=== PATIENT | male | born 1940 | race African-American/Black ===

== ENCOUNTER 2016-09-11 13:31 | Emergency (ER) | payer OTHER, BC ==
--- NOTE | 2016-09-11 14:26 | ER Document Report ---
ED Medical Screen (RME) - General Mode of Arrival: Wheelchair Information source: Patient TRAVEL OUTSIDE OF THE U.S. IN LAST 30 DAYS: No - HPI Onset: This afternoon Associated Symptoms: Other - see notes above <WOO RAMIREZ - Last Filed: 09/11/16 14:50> <SERVANDOVINOD - Last Filed: 09/11/16 20:14> - General Chief Complaint: Fall Stated Complaint: FALL Time Seen by Provider: 09/11/16 14:12 Notes: 76-year-old male presents to the ED complaining of difficulty walking and moving his left leg secondary to suffering a fall earlier this afternoon. Patient reports that he stepped out of his truck, opened the passenger door to take his walker out, placed the walker on the ground, but then proceeded to fall from a standing height and landing on his buttocks. Patient currently denies any pain, urinary incontinence, or fecal incontinence. Patient reports limited mobility with his right leg which is not new. (WOO RAMIREZ) Past Medical History - General Information source: Patient Renal/ Medical History: Denies: Hx Peritoneal Dialysis <WOO RAMIREZ - Last Filed: 09/11/16 14:50> Review of Systems - Review of Systems Constitutional: No symptoms reported EENT: No symptoms reported Cardiovascular: No symptoms reported Respiratory: No symptoms reported Gastrointestinal: No symptoms reported. denies: Fecal incontinence Genitourinary: No symptoms reported. denies: Incontinence Male Genitourinary: No symptoms reported Musculoskeletal: No symptoms reported, Other - denies leg pain. denies: Back pain, Neck pain Skin: No symptoms reported Hematologic/Lymphatic: No symptoms reported Neurological/Psychological: No symptoms reported -: Yes All other systems reviewed and negative <WOO RAMIREZ - Last Filed: 09/11/16 14:50> Physical Exam - General General appearance: Alert In distress: None - HEENT Head: Normocephalic, Atraumatic Eyes: Normal Extraocular movements intact: Yes Pupils: PERRL - Respiratory Respiratory status: No respiratory distress Breath sounds: Normal - Cardiovascular Rhythm: Regular Heart sounds: Normal auscultation Murmur: No Friction rub: No Gallop: None auscultated - Extremities General upper extremity: Normal inspection, Normal ROM General lower extremity: Other - Patient having difficulty elevating the left thigh, but has no difficulty extending and flexing the left knee.. No: Normal inspection, Normal ROM <WOO RAMIREZ - Last Filed: 09/11/16 14:50> Course - Laboratory Result Diagrams: 09/11/16 14:30 09/11/16 14:30 <WOO RAMIREZ - Last Filed: 09/11/16 14:50> - Laboratory Result Diagrams: 09/11/16 14:30 09/11/16 14:30 <VINOD LOUNG - Last Filed: 09/11/16 20:14> - Vital Signs Vital signs: Temp Pulse Resp BP Pulse Ox 98.2 F 95 16 152/88 H 99 09/11/16 17:41 09/11/16 17:41 09/11/16 17:41 09/11/16 17:41 09/11/16 17:41 - Laboratory Laboratory results interpreted by me: 09/11/16 09/11/16 14:30 14:30 RDW 14.8 H Glucose 149 H Doctor's Discharge <WOO RAMIREZ - Last Filed: 09/11/16 14:50> <VINOD LUONG - Last Filed: 09/11/16 20:14> - Discharge Clinical Impression: Hip pain status post fall Condition: Stable Disposition: HOME, SELF-CARE Additional Instructions: As we discussed, your x-rays and CT scan look good. Your lab work looked good. Recommendations: New current medicines. Follow-up with a primary care doctor: I left the number for Dr. Hardin. He may require an orthopedic doctor and you can get a referral for the primary care doctor. Continue to ambulate with the walker. We adjusted the size of the walker: This is more appropriate for you (the positioning of the walker before you came then made you more prone to falling). Referrals: TOYA HARDIN MD [ACTIVE STAFF] - Follow up as needed (This is the number of a primary care doctor that I would like you to start going to. He is in [place] and he is affiliated with this [facility].) Scribe Documentation - Scribe Written by Matt:: Matt Lu, 09/11/2016 1457 acting as scribe for :: Servando <WOO RAMIREZ - Last Filed: 09/11/16 14:50>
[2016-09-11 14:58] LABS: ABSOLUTE BASOPHILS # (AUTO) 0.1 10^3/uL (0.0-0.2); ABSOLUTE EOSINOPHILS # (AUTO) 0.1 10^3/uL (0.0-0.6); ABSOLUTE LYMPHOCYTES (AUTO) 1.4 10^3/uL (0.5-4.7); ABSOLUTE MONOCYTES (AUTO) 0.4 10^3/uL (0.1-1.4); ABSOLUTE NEUT (AUTO) 6.8 10^3/uL (1.7-8.2); BASOPHILS % (AUTO) 0.7 % (0-2); EOSINOPHILS % (AUTO) 0.7 % (0-6); HEMATOCRIT 42.8 % (37.9-51.0); HGB HCT DIFFERENCE -0.8; LYMPHOCYTES % (AUTO) 15.7 % (13-45); MEAN CORPUSCULAR HEMOGLOBIN 27.6 pg (27.0-33.4); MEAN CORPUSCULAR HGB CONC 32.7 g/dL (32.0-36.0); MEAN CORPUSCULAR VOLUME 85 fl (80-97); MONOCYTES % (AUTO) 5.1 % (3-13); RED BLOOD COUNT 5.07 10^6/uL (4.35-5.55); RED CELL DISTRIBUTION WIDTH 14.8 % (11.5-14.0); SEGMENTED NEUTROPHILS % (AUTO) 77.8 % (42-78); WHITE BLOOD COUNT 8.7 10^3/uL (4.0-10.5)
--- NOTE | 2016-09-11 15:00 | RADIOLOGY REPORT (SQ) ---
EXAM DESCRIPTION: CT HEAD WITHOUT COMPLETED DATE/TIME: 09/11/2016 2:45 pm REASON FOR STUDY: fell, cant move left hip COMPARISON: None. TECHNIQUE: Axial images acquired through the brain without intravenous contrast. Images reviewed wi th bone, brain and subdural windows. Images stored on PACS. All CT scanners at this facility use dose modulation, iterative reconstruction, and/or weight based d osing when appropriate to reduce radiation dose to as low as reasonably achievable (ALARA). [facility]: Dose Right [facility]: CareDose [facility]: Dose Right [facility]: Teradose 4D [facility]: Zlio RADIATION DOSE: 64.61 mGy. LIMITATIONS: None. FINDINGS: VENTRICLES: Prominent. CEREBRUM: No masses. No hemorrhage. No midline shift. Areas of low density in the white matter mos t likely due to chronic micro-vascular ischemic change. No evidence for acute infarction. CEREBELLUM: No masses. No hemorrhage. No alteration of density. No evidence for acute infarction. EXTRAAXIAL SPACES: Mild age-related involutional change. No fluid collections. No masses. ORBITS AND GLOBE: No intra- or extraconal masses. Normal contour of globe without masses. CALVARIUM: No fracture. PARANASAL SINUSES: No fluid or mucosal thickening. SOFT TISSUES: No mass or hematoma. OTHER: No other significant finding. IMPRESSION: MILD CHRONIC CHANGES OF ATROPHY AND MICROVASCULAR ISCHEMIA. NO ACUTE PROCESS. TECHNICAL DOCUMENTATION: JOB ID: [id number] Quality ID # 436: Final reports with documentation of one or more dose reduction techniques (e.g., Au tomated exposure control, adjustment of the mA and/or kV according to patient size, use of iterative reconstruction technique) 2010 [employer]- All Rights Reserved
--- NOTE | 2016-09-11 15:12 | RADIOLOGY REPORT (SQ) ---
EXAM DESCRIPTION: HIP LEFT AP/LATERAL COMPLETED DATE/TIME: 09/11/2016 3:01 pm REASON FOR STUDY: fell, cant move left hip COMPARISON: None. NUMBER OF VIEWS: Two views. TECHNIQUE: AP and frog-leg view of the left hip. LIMITATIONS: None. FINDINGS: MINERALIZATION: Normal. LEFT HIP: No fracture or dislocation. No worrisome bone lesions. OPPOSITE HIP: No fracture or dislocation. No worrisome bone lesions. SOFT TISSUES: No findings. OTHER: No other significant finding. IMPRESSION: NEGATIVE STUDY OF THE LEFT HIP. NO RADIOGRAPHIC EVIDENCE OF ACUTE INJURY. TECHNICAL DOCUMENTATION: JOB ID: [id number] [employer]- All Rights Reserved
[2016-09-11 15:13] LABS: PROTHROMBIN TIME 12.6 SEC (11.4-15.4)
--- NOTE | 2016-09-11 15:13 | RADIOLOGY REPORT (SQ) ---
EXAM DESCRIPTION: L SPINE WHOLE COMPLETED DATE/TIME: 09/11/2016 3:01 pm REASON FOR STUDY: fell, cant move left hip COMPARISON: None. NUMBER OF VIEWS: Four views including obliques TECHNIQUE: AP, lateral, oblique, and sacral radiographic images acquired of the lumbar spine. LIMITATIONS: None. FINDINGS: MINERALIZATION: Normal. SEGMENTATION: Normal. No transitional anatomy. ALIGNMENT: Normal. VERTEBRAE: Maintained height. No fracture or worrisome bone lesion. DISCS: Multilevel disc space narrowing with osteophytes. POSTERIOR ELEMENTS: Pedicles and facets are intact. No pars defect or posterior arch defects. Facet arthropathy is present. HARDWARE: None in the spine. PARASPINAL SOFT TISSUES: Normal. PELVIS: Intact as visualized. No fractures or worrisome bone lesions. SI joints intact. OTHER: No other significant finding. IMPRESSION: SPONDYLOSIS WITHOUT BONE LESION OR FRACTURE. TECHNICAL DOCUMENTATION: JOB ID: [id number] [employer]- All Rights Reserved
[2016-09-11 15:14] LABS: PARTIAL THROMBOPLASTIN TIME 32.6 SEC (23.5-35.8)
[2016-09-11 15:18] LABS: ALANINE AMINOTRANSFERASE 39 U/L (21-72); ALBUMIN 4.1 g/dL (3.5-5.0); ALKALINE PHOSPHATASE 85 U/L (38-126); ANION GAP 12 (5-19); ASPARTATE AMINO TRANSFERASE 41 U/L (17-59); BILIRUBIN,DIRECT 0.3 mg/dL (0.0-0.4); BILIRUBIN,TOTAL 0.7 mg/dL (0.2-1.3); BLOOD UREA NITROGEN 13 mg/dL (7-20); CALCIUM 9.6 mg/dL (8.4-10.2); CARBON DIOXIDE 27 mmol/L (22-30); CHLORIDE 102 mmol/L (98-107); CREATININE RESULT 0.95 mg/dL (0.52-1.25); GLUCOSE 149 mg/dL (75-110); POTASSIUM 4.1 mmol/L (3.6-5.0); SODIUM 140.7 mmol/L (137-145); TOTAL PROTEIN 7.2 g/dL (6.3-8.2)
--- NOTE | 2016-09-11 15:24 | ER Document Report ---
ED General - General Chief Complaint: Fall Stated Complaint: FALL Time Seen by Provider: 09/11/16 14:12 Mode of Arrival: Wheelchair Information source: Patient Notes: 76-year-old male with a history of chronic right hip pain who ambulates with a walker presents to the ED complaining of difficulty walking and moving his right leg secondary to suffering a fall earlier this afternoon. Patient reports that he stepped out of his truck, opened the passenger door to take his walker out, placed the walker on the ground, but then proceeded to fall from a standing height and landing on his buttocks. Patient states that the walker rolled out in front of him and he went right down. Patient currently denies hitting his head or any loss of consciousness. Patient reports limited mobility with his right leg which is not new. TRAVEL OUTSIDE OF THE U.S. IN LAST 30 DAYS: No - HPI Onset: Just prior to arrival Onset/Duration: Sudden Quality of pain: No pain Severity: None Pain Level: Denies Associated symptoms: denies: Chest pain, Fever, Shortness of breath Exacerbated by: Denies Relieved by: Denies Similar symptoms previously: Yes Recently seen / treated by doctor: Yes Past Medical History - General Information source: Patient - Social History Smoking Status: Never Smoker Cigarette use (# per day): No Chew tobacco use (# tins/day): No Frequency of alcohol use: None Drug Abuse: None Lives with: Spouse/Significant other Family History: Reviewed & Not Pertinent Patient has suicidal ideation: No Patient has homicidal ideation: No - Past Medical History Cardiac Medical History: Reports: Hx Hypertension Pulmonary Medical History: Reports: None Neurological Medical History: Reports: None Endocrine Medical History: Reports: Hx Diabetes Mellitus Type 2 Renal/ Medical History: Reports: None Malignancy Medical History: Reports None GI Medical History: Reports: None Musculoskeltal Medical History: Reports Hx Arthritis Skin Medical History: Reports None Psychiatric Medical History: Reports: None Traumatic Medical History: Reports: None Infectious Medical History: Reports: None Past Surgical History: Reports: Hx Orthopedic Surgery Review of Systems - Review of Systems Constitutional: denies: Chills, Fever EENT: No symptoms reported Cardiovascular: No symptoms reported Respiratory: No symptoms reported Gastrointestinal: No symptoms reported Genitourinary: No symptoms reported Male Genitourinary: No symptoms reported Musculoskeletal: See HPI Skin: No symptoms reported Hematologic/Lymphatic: No symptoms reported Neurological/Psychological: No symptoms reported Physical Exam - Vital signs Vitals: Temp Pulse Resp BP Pulse Ox 98.5 F 93 15 148/83 H 98 09/11/16 13:36 09/11/16 13:36 09/11/16 13:36 09/11/16 13:36 09/11/16 13:36 Notes: Physical exam: GENERAL: 76-year-old man, alert and oriented 3, no acute distress HEAD: Atraumatic, normocephalic. EYES: Pupils equal round and reactive to light, extraocular movements intact, sclera anicteric, conjunctiva are normal. ENT: TMs normal, nares patent, oropharynx clear without exudates. Moist mucous membranes. NECK: Normal range of motion, supple without lymphadenopathy or JVD. LUNGS: Breath sounds clear to auscultation bilaterally and equal. No wheezes rales or rhonchi. HEART: Regular rate and rhythm without murmurs, rubs or gallops. ABDOMEN: Soft, normoactive bowel sounds. No tenderness to palpation. No guarding, no rebound. No masses appreciated. EXTREMITIES: Patient has limited range of motion of the right hip and right knee which is chronic. He does have 1+ edema bilaterally which is chronic as per patient. His lower extremities are warm and he has good pulses distally. NEUROLOGICAL: Cranial nerves II through XII grossly intact. Normal speech, lower extremities, limited range of motion of the right hip and right knee which is chronic PSYCH: Normal mood, normal affect. SKIN: Warm, Dry, normal turgor, no rashes or lesions noted. Course - Re-evaluation Re-evalutation: 09/12/16 00:19 Patient's ambulation was assessed with a walker. He normally at baseline ambulates with a walker. The walker itself needed to be adjusted to the appropriate height. He was able to ambulate. - Vital Signs Vital signs: Temp Pulse Resp BP Pulse Ox 98.2 F 95 16 152/88 H 99 09/11/16 17:41 09/11/16 17:41 09/11/16 17:41 09/11/16 17:41 09/11/16 17:41 - Laboratory Result Diagrams: 09/11/16 14:30 09/11/16 14:30 Laboratory results interpreted by me: 09/11/16 09/11/16 14:30 14:30 RDW 14.8 H Glucose 149 H - Diagnostic Test Radiology reviewed: Image reviewed, Reports reviewed - These of the hip and back show no acute fracture. Discharge - Discharge Clinical Impression: Hip pain status post fall Condition: Stable Disposition: HOME, SELF-CARE Additional Instructions: As we discussed, your x-rays and CT scan look good. Your lab work looked good. Recommendations: New current medicines. Follow-up with a primary care doctor: I left the number for Dr. Hardin. He may require an orthopedic doctor and you can get a referral for the primary care doctor. Continue to ambulate with the walker. We adjusted the size of the walker: This is more appropriate for you (the positioning of the walker before you came then made you more prone to falling). Referrals: TOYA HARDIN MD [ACTIVE STAFF] - Follow up as needed (This is the number of a primary care doctor that I would like you to start going to. He is in [place] and he is affiliated with this [facility].)
[2016-09-11 17:42] VITALS: BP 152/88
== END 2016-09-11 17:43 | disposition home or self-care (01) ==
LOC: ER 13:31
DX: M25.559 Pain in unspecified hip (principal); W18.39XA Other fall on same level, initial encounter; Y93.89 Activity, other specified; I10 Essential (primary) hypertension; E11.9 Type 2 diabetes mellitus without complications; R60.0 Localized edema
CPT/HCPCS: 36415; 70450; 72110; 80053; 85025; 85610; 85730; 99284

== ENCOUNTER 2017-10-07 14:48 | Observation (INO) | payer OTHER, BC ==
--- NOTE | 2017-10-07 15:27 | ER Document Report ---
ED Medical Screen (RME) - General Chief Complaint: Syncope Stated Complaint: BLOOD PRESSURE ISSUES Time Seen by Provider: 10/07/17 15:19 Mode of Arrival: Ambulatory Information source: Patient TRAVEL OUTSIDE OF THE U.S. IN LAST 30 DAYS: No - HPI Notes: 10/07/17 15:20 77 yr old male with a hx of HTN, diabetes presents to the ED with a report from EMS staying he had a questionable vagal response at the [facility] with one episode of a syncopal episode with ems pt alert and diaphoresis. pt did report tripping and falling in the [facility] lot [place] [facility]. pt verbalizes no pain at this time. denies cp, sob, n/v/d. pt is a poor historian. No otc meds given. reports he did take his blood pressure medications this morning. I have greeted and performed a rapid initial assessment of this patient. A comprehensive ED assessment and evaluation of the patient, analysis of test results and completion of medical decision making process will be conducted by an additional ED providers. S1 S2 regular, no murmurs Lungs CTA awake, alert and oriented x3 - Related Data Allergies/Adverse Reactions: No Known Allergies Allergy (Verified 10/07/17 14:49) Past Medical History - Past Medical History Cardiac Medical History: Reports: Hx Hypertension Endocrine Medical History: Reports: Hx Diabetes Mellitus Type 2 Renal/ Medical History: Denies: Hx Peritoneal Dialysis Musculoskeltal Medical History: Reports Hx Arthritis Past Surgical History: Reports: Hx Orthopedic Surgery Physical Exam - Vital signs Vitals: Temp Pulse Resp BP Pulse Ox 97.6 F 62 18 124/59 L 100 10/07/17 14:57 10/07/17 14:57 10/07/17 14:57 10/07/17 14:57 10/07/17 14:57 Course - Vital Signs Vital signs: Temp Pulse Resp BP Pulse Ox 97.6 F 62 18 124/59 L 100 10/07/17 14:57 10/07/17 14:57 10/07/17 14:57 10/07/17 14:57 10/07/17 14:57
[2017-10-07] MEDS ORDERED: ASPIRIN 81 MG TABLET, CHEWABLE PO ONE (15:28)
--- NOTE | 2017-10-07 16:41 | RADIOLOGY REPORT (SQ) ---
EXAM DESCRIPTION: CHEST SINGLE VIEW COMPLETED DATE/TIME: 10/07/2017 4:17 pm REASON FOR STUDY: syncope COMPARISON: None. EXAM PARAMETERS: NUMBER OF VIEWS: One view. TECHNIQUE: Single frontal radiographic view of the chest acquired. RADIATION DOSE: NA LIMITATIONS: None. FINDINGS: LUNGS AND PLEURA: No opacities, masses or pneumothorax. No pleural effusion. MEDIASTINUM AND HILAR STRUCTURES: No masses. Contour normal. HEART AND VASCULAR STRUCTURES: Heart normal in size. Normal vasculature. BONES: No acute findings. HARDWARE: None in the chest. OTHER: No other significant finding. IMPRESSION: NO ACUTE RADIOGRAPHIC FINDING IN THE CHEST. TECHNICAL DOCUMENTATION: JOB ID: [id number] [employer]- All Rights Reserved Reading location - IP/workstation name: [email or web address]
--- NOTE | 2017-10-07 17:25 | ER Document Report ---
ED General - General Chief Complaint: Syncope Stated Complaint: BLOOD PRESSURE ISSUES Time Seen by Provider: 10/07/17 15:19 Mode of Arrival: Ambulatory Information source: Patient Notes: Patient is a 77-year-old male who presents today from the [place] clinic's office at the patient supposedly had a syncopal episode 2. Patient is denying the syncopal episode but the patient's at bedside states that the patient was in the physician's office when this episode occurred. They stated that he was diaphoretic with a drop in blood pressure. Patient denies any headache, neck pain, chest pain, palpitations, abdominal pain, weakness or numbness. Patient states he has some baseline right lower extremity edema to the rey secondary to a previous knee surgery many years ago. Patient is on multiple blood pressure medications. He is unsure whether any of these are new medications. TRAVEL OUTSIDE OF THE U.S. IN LAST 30 DAYS: No - HPI Onset: Other - See above Onset/Duration: Sudden Quality of pain: No pain Severity: Mild Pain Level: Denies Associated symptoms: Other - See above Exacerbated by: Denies Relieved by: Denies Similar symptoms previously: Yes Recently seen / treated by doctor: Yes - Related Data Allergies/Adverse Reactions: No Known Allergies Allergy (Verified 10/07/17 14:49) Past Medical History - General Information source: Patient - Social History Smoking Status: Current Every Day Smoker Cigarette use (# per day): No Chew tobacco use (# tins/day): No Smoking Education Provided: No Frequency of alcohol use: None Drug Abuse: None Family History: Reviewed & Not Pertinent Patient has suicidal ideation: No Patient has homicidal ideation: No - Past Medical History Cardiac Medical History: Reports: Hx Hypertension Endocrine Medical History: Reports: Hx Diabetes Mellitus Type 2 Renal/ Medical History: Denies: Hx Peritoneal Dialysis Musculoskeletal Medical History: Reports Hx Arthritis Past Surgical History: Reports: Hx Orthopedic Surgery Review of Systems - Review of Systems Constitutional: denies: Fever EENT: denies: Eye discharge, Nose discharge Cardiovascular: denies: Chest pain, Palpitations Respiratory: denies: Short of breath Gastrointestinal: denies: Vomiting Genitourinary: denies: Dysuria Musculoskeletal: denies: Leg swelling Skin: Other - no hives. denies: Rash Neurological/Psychological: Other - no slurred speech -: Yes All other systems reviewed and negative Physical Exam - Vital signs Vitals: Temp Pulse Resp BP Pulse Ox 97.6 F 62 18 124/59 L 100 10/07/17 14:57 10/07/17 14:57 10/07/17 14:57 10/07/17 14:57 10/07/17 14:57 Notes: Reviewed vital signs and nursing note as charted by RN. CONSTITUTIONAL: Alert and oriented and responds appropriately to questions. Well -appearing; well-nourished HEAD: Normocephalic; atraumatic EYES: PERRL; no nystagmus ENT: Normal nose; no rhinorrhea; moist mucous membranes; pharynx without lesions noted NECK: Supple without meningismus; non-tender; no carotid bruit; no cervical lymphadenopathy, no masses CARD: Regular rate and rhythm; no murmurs; symmetric distal pulses RESP: Normal chest excursion without splinting or tachypnea; breath sounds clear and equal bilaterally ABD/GI: Normal bowel sounds; non-distended; soft, non-tender, no abdominal palpable masses or bruits present BACK: The back appears normal and is non-tender to palpation, there is no CVA tenderness EXT: Normal ROM in all joints; non-tender to palpation; 1-2+ pitting edema to the right mid rey downward SKIN: Normal color for age and race; warm; dry; no acute lesions noted NEURO: CN II through XII are intact. Patient has 5 out of 5 bilateral upper and lower extremity strength with sensation intact to light touch. No obvious cerebellar findings PSYCH: The patient's mood and manner are appropriate. Grooming and personal hygiene are appropriate. Course - Re-evaluation Re-evalutation: 10/07/17 17:25 EKG shows heart of 64, normal sinus rhythm, left axis deviation, poor R-wave progression, no obvious ST elevation or depression. Given the above history and physical examination with the patient's past stroke history, we will obtain a CT scan of the head, place the patient on the monitor , obtain cardiac enzymes and EKG, and reassess. EKG is recorded. - Vital Signs Vital signs: Temp Pulse Resp BP Pulse Ox 97.6 F 62 18 124/59 L 100 10/07/17 14:57 10/07/17 14:57 10/07/17 14:57 10/07/17 14:57 10/07/17 14:57 - Laboratory Result Diagrams: 10/07/17 17:30 10/07/17 17:30 Laboratory results interpreted by me: 10/07/17 10/07/17 10/07/17 17:30 17:30 17:45 RDW 15.1 H Seg Neutrophils % 78.7 H Glucose 73 L Creatine Kinase 213 H Urine Urobilinogen 2.0 H Discharge - Discharge Clinical Impression: Syncope Qualifiers: Syncope type: unspecified Qualified Code(s): R55 - Syncope and collapse Condition: Fair Disposition: ADMITTED OBSERVATION Admitting Provider: Hospitalist Unit Admitted: Telemetry
[2017-10-07 18:15] LABS: ABSOLUTE BASOPHILS # (AUTO) 0.1 10^3/uL (0.0-0.2); ABSOLUTE EOSINOPHILS # (AUTO) 0.1 10^3/uL (0.0-0.6); ABSOLUTE LYMPHOCYTES (AUTO) 1.5 10^3/uL (0.5-4.7); ABSOLUTE MONOCYTES (AUTO) 0.4 10^3/uL (0.1-1.4); ABSOLUTE NEUT (AUTO) 7.8 10^3/uL (1.7-8.2); BASOPHILS % (AUTO) 0.7 % (0-2); EOSINOPHILS % (AUTO) 0.8 % (0-6); HEMATOCRIT 42.1 % (37.9-51.0); LYMPHOCYTES % (AUTO) 15.6 % (13-45); MEAN CORPUSCULAR HEMOGLOBIN 27.7 pg (27.0-33.4); MEAN CORPUSCULAR HGB CONC 33.3 g/dL (32.0-36.0); MEAN CORPUSCULAR VOLUME 83 fl (80-97); MONOCYTES % (AUTO) 4.2 % (3-13); PLATELET COUNT 166 10^3/uL (150-450); RED BLOOD COUNT 5.04 10^6/uL (4.35-5.55); RED CELL DISTRIBUTION WIDTH 15.1 % (11.5-14.0); SEGMENTED NEUTROPHILS % (AUTO) 78.7 % (42-78); TOTAL CELLS COUNTED % (AUTO) 100 %; WHITE BLOOD COUNT 9.9 10^3/uL (4.0-10.5)
[2017-10-07 18:40] LABS: APPEARANCE,URINE CLEAR; BILIRUBIN,URINE NEGATIVE (NEGATIVE); COLOR,URINE YELLOW; GLUCOSE, URINE NEGATIVE (NEGATIVE); KETONES,URINE NEGATIVE (NEGATIVE); LEUKOCYTE ESTERASE,URINE NEGATIVE (NEGATIVE); NITRITE,URINE NEGATIVE (NEGATIVE); PROTEIN,URINE NEGATIVE (NEGATIVE); URINE SPECIFIC GRAVITY 1.012
[2017-10-07 18:42] LABS: ALANINE AMINOTRANSFERASE 34 U/L (21-72); ALBUMIN 3.9 g/dL (3.5-5.0); ALKALINE PHOSPHATASE 64 U/L (38-126); ANION GAP 11 (5-19); ASPARTATE AMINO TRANSFERASE 42 U/L (17-59); BILIRUBIN,DIRECT 0.3 mg/dL (0.0-0.4); BILIRUBIN,TOTAL 0.6 mg/dL (0.2-1.3); BLOOD UREA NITROGEN 12 mg/dL (7-20); CARBON DIOXIDE 27 mmol/L (22-30); CHLORIDE 105 mmol/L (98-107); CREATINE KINASE 213 U/L (55-170); GLUCOSE 73 mg/dL (75-110); POTASSIUM 4.1 mmol/L (3.6-5.0); SODIUM 143.4 mmol/L (137-145); TOTAL PROTEIN 6.9 g/dL (6.3-8.2)
--- NOTE | 2017-10-07 18:50 | RADIOLOGY REPORT (SQ) ---
EXAM DESCRIPTION: CT HEAD WITHOUT COMPLETED DATE/TIME: 10/07/2017 6:35 pm REASON FOR STUDY: 20, syncope and fall COMPARISON: 09/11/2016 TECHNIQUE: Axial images acquired through the brain without intravenous contrast. Images reviewed wi th bone, brain and subdural windows. Images stored on PACS. All CT scanners at this facility use dose modulation, iterative reconstruction, and/or weight based d osing when appropriate to reduce radiation dose to as low as reasonably achievable (ALARA). [facility]: Dose Right [facility]: CareDose [facility]: Dose Right [facility]: Teradose 4D [facility]: Smart Atempo RADIATION DOSE: CT Rad equipment meets quality standard of care and radiation dose reduction techniq ues were employed. CTDIvol: 53.2 mGy. DLP: 1044 mGy-cm. mGy. LIMITATIONS: None. FINDINGS: VENTRICLES: Prominent. CEREBRUM: No masses. No hemorrhage. No midline shift. Areas of low density in the white matter mos t likely due to chronic micro-vascular ischemic change. No evidence for acute infarction. CEREBELLUM: No masses. No hemorrhage. No alteration of density. No evidence for acute infarction. EXTRAAXIAL SPACES: Mild age-related involutional change. No fluid collections. No masses. ORBITS AND GLOBE: No intra- or extraconal masses. Normal contour of globe without masses. CALVARIUM: No fracture. PARANASAL SINUSES: No fluid or mucosal thickening. SOFT TISSUES: No mass or hematoma. OTHER: No other significant finding. IMPRESSION: No acute intracranial findings. EVIDENCE OF ACUTE STROKE: NO. TECHNICAL DOCUMENTATION: JOB ID: [id number] Quality ID # [id number]: Final reports with documentation of one or more dose reduction techniques (e.g., Au tomated exposure control, adjustment of the mA and/or kV according to patient size, use of iterative reconstruction technique) 2010 [employer]- All Rights Reserved Reading location - IP/workstation name: [email or web address]
[2017-10-07 21:39] LABS: CREATINE KINASE MB 3.21 ng/mL (<4.55)
[2017-10-07 21:40] LABS: TROPONIN I < 0.012 ng/mL
[2017-10-07] MEDS ORDERED: MAG HYDROX/AL HYDROX/SIMETH SUSP 30 ML UDCUP PO PRN (22:06)
[2017-10-07] MEDS ORDERED: ACETAMINOPHEN 325 MG TABLET PO PRN (22:06)
[2017-10-07] MEDS ORDERED: PROMETHAZINE HCL INJ 25 MG/1 ML VIAL IV PRN (22:06)
[2017-10-07] MEDS ORDERED: GLUCAGON,HUMAN RECOMB 1 MG INJ IM PRN (22:09)
[2017-10-07] MEDS ORDERED: DEXTROSE 50%-WATER 25 GM/50 ML DISP.SYRIN IV PRN ×2 (22:09)
[2017-10-07] MEDS ORDERED: NORMAL SALINE 1000 ML 1,000 ML IV PRN (22:09)
[2017-10-07] MEDS ORDERED: INSULIN REG, HUMAN 100 UNIT/ML 3 ML VIAL (PYX) SUBCUT PRN (22:09)
[2017-10-07] MEDS ORDERED: DEXTROSE 40% GEL 15 GM TUBE PO PRN ×2 (22:09)
--- NOTE | 2017-10-08 00:03 | EKG REPORT ---
SEVERITY:- OTHERWISE NORMAL ECG - SINUS RHYTHM BORDERLINE LEFT AXIS DEVIATION : Confirmed by: Haley Juarez MD 08-Oct-2017 00:02:27
--- NOTE | 2017-10-08 00:41 | PDOC H&P ---
History of Present Illness Admission Date/PCP: 10/07/17 19:54 Patient complains of: Syncope History of Present Illness: FEDERICA HOLLAND is a 77 year old male from the [place] clinic office as the patient had a syncopal episode 2. I spoke with the over the phone and she tells me that at that time she was with the nurse he suddenly passed out, he was placed on the table and took his vital signs, apparently he had hypotension his blood sugar was low, unknown numbers, patient became diaphoretic. As per EMS patient had a second syncopal episode in the parking lot, patient states that he tripped but as per EMS he became diaphoretic and passed out. BS in the chemistry in the ED 75 mg/dl, tells me that he becomes hypoglycemic on and off, also tells me that he has not been drinking any water but he has been eating normally. Patient is unable to provide any history as per memory problems. tells me that he has been losing weight for 1 year. Patient usually walks with a walker to small steps. EKG shows heart rate of 64, sinus rhythm with poor R-wave progression, no acute ST elevation, depression. No orthostatic vital signs were done in the ED. CT head obtain as the patient has history of a stroke which came back negative. Past Medical History Cardiac Medical History: Reports: Hypertension Neurological Medical History: Reports: Ischemic CVA Endocrine Medical History: Reports: Diabetes Mellitus Type 2 Musculoskeltal Medical History: Reports: Arthritis Past Surgical History Past Surgical History: Reports: Orthopedic Surgery - Right shoulder replacement , right knee replacement Social History Information Source: Patient, Relative Lives with: Family Smoking Status: Former Smoker - Quit in 1976 used to smoke 1 pack a week Frequency of Alcohol Use: None Drugs: None Family History Family History: Reviewed & Not Pertinent Parental Family History Reviewed: Yes - Mother had diabetes mellitus and history of [place], unknown father Children Family History Reviewed: NA Sibling(s) Family History Reviewed.: NA Medication/Allergy Home Medications: Furosemide [Lasix 20 mg Tablet] 20 mg PO DAILY 10/07/17 Lisinopril [Prinivil 40 mg Tablet] 40 mg PO DAILY 10/07/17 Metformin HCl [Metformin HCl ER] 500 mg PO DAILY 10/07/17 Allergies/Adverse Reactions: No Known Allergies Allergy (Verified 10/07/17 14:49) Review of Systems Review of Systems: As per HPI, all others negative Physical Exam Vital Signs: Temp Pulse Resp BP Pulse Ox 97.6 F 66 16 139/89 H 100 10/07/17 14:57 10/07/17 21:15 10/07/17 23:01 10/07/17 23:00 10/07/17 23:01 Additional comments: General appearance: Well-developed, thin, alert and cooperative, and appears to be in no acute distress Head: Normocephalic Eyes: PEERL, EOMI, vision is grossly intact. Ears: External auditory canal and tympanic membranes clear, hearing grossly intact. Nose: No nasal discharge. Throat: Oral cavity and pharynx normal. No inflammation, swelling, exudate or lesions. Neck: Neck supple, nontender without lymphadenopathy, masses or thyromegaly. Cardiac: Normal S1 and S2. No S3, S4 or murmurs. Rhythm is regular. cyanosis or pallor. Extremities are warm and well perfused. Capillary refill is less than 2 seconds. No carotid bruits. Lungs: Clear to auscultation and percussion without rales, rhonchi, wheezing. Diminished breath sounds. Not using accessory muscles. Abdomen: Positive bowel sounds. Soft. Nondistended, nontender. No guarding or rebound. No masses. No hepatosplenomegaly Extremities: No significant deformity or joint abnormality. mild edema right leg. Peripheral pulses intact. No varicosities. Neurological: Cranial nerves II through XII grossly intact. Strength and sensation symmetric and intact throughout. Reflexes 2+ throughout. Skin: Skin normal color, texture and turgor with no lesions or eruptions, warm and dry. Psychiatric: The mental examination revealed the patient was oriented to person , place, and partially in time, is not very good historian, I have to redirect my question several times still do not have the right answer. Results Laboratory Results: 10/07/17 20:52 CK-MB (CK-2) 3.21 Troponin I < 0.012 10/07/17 10/07/17 10/07/17 17:30 17:30 17:45 WBC 9.9 RBC 5.04 Hgb 14.0 Hct 42.1 MCV 83 MCH 27.7 MCHC 33.3 RDW 15.1 H Plt Count 166 Seg Neutrophils % 78.7 H Lymphocytes % 15.6 Monocytes % 4.2 Eosinophils % 0.8 Basophils % 0.7 Absolute Neutrophils 7.8 Absolute Lymphocytes 1.5 Absolute Monocytes 0.4 Absolute Eosinophils 0.1 Absolute Basophils 0.1 Sodium 143.4 Potassium 4.1 Chloride 105 Carbon Dioxide 27 Anion Gap 11 BUN 12 Creatinine 0.66 Est GFR ( Amer) > 60 Est GFR (Non-Af Amer) > 60 Glucose 73 L Calcium 9.0 Total Bilirubin 0.6 Direct Bilirubin 0.3 AST 42 ALT 34 Creatine Kinase 213 H CK-MB (CK-2) Troponin I Total Protein 6.9 Albumin 3.9 Urine Color YELLOW Urine Appearance CLEAR Urine pH 7.0 Ur Specific [place] 1.012 Urine Protein NEGATIVE Urine Glucose (UA) NEGATIVE Urine Ketones NEGATIVE Urine Blood NEGATIVE Urine Nitrite NEGATIVE Urine Bilirubin NEGATIVE Urine Urobilinogen 2.0 H Ur Leukocyte Esterase NEGATIVE Urine WBC (Auto) 1 Urine RBC (Auto) 0 U Hyaline Cast (Auto) 3 Squamous Epi Cells Auto <1 Urine Mucus (Auto) OCC Urine Ascorbic Acid NEGATIVE 10/07/17 20:52 WBC RBC Hgb Hct MCV MCH MCHC RDW Plt Count Seg Neutrophils % Lymphocytes % Monocytes % Eosinophils % Basophils % Absolute Neutrophils Absolute Lymphocytes Absolute Monocytes Absolute Eosinophils Absolute Basophils Sodium Potassium Chloride Carbon Dioxide Anion Gap BUN Creatinine Est GFR ( Amer) Est GFR (Non-Af Amer) Glucose Calcium Total Bilirubin Direct Bilirubin AST ALT Creatine Kinase CK-MB (CK-2) 3.21 Troponin I < 0.012 Total Protein Albumin Urine Color Urine Appearance Urine pH Ur Specific [place] Urine Protein Urine Glucose (UA) Urine Ketones Urine Blood Urine Nitrite Urine Bilirubin Urine Urobilinogen Ur Leukocyte Esterase Urine WBC (Auto) Urine RBC (Auto) U Hyaline Cast (Auto) Squamous Epi Cells Auto Urine Mucus (Auto) Urine Ascorbic Acid Impressions: Chest X-Ray 10/07/17 15:28 IMPRESSION: NO ACUTE RADIOGRAPHIC FINDING IN THE CHEST. Head CT 10/07/17 17:24 IMPRESSION: No acute intracranial findings. EVIDENCE OF ACUTE STROKE: NO. Assessment & Plan - Diagnosis (1) Syncope Qualifiers: Syncope type: unspecified Qualified Code(s): R55 - Syncope and collapse Is this a current diagnosis for this admission?: Yes Plan: Vision comes to status post 2 syncopal episodes, unclear etiology, possible dehydration as tells me that he has not been drinking water lately, I am requesting orthostatic vital signs, in the meantime patient will be on IV fluids with reassessment in the morning. Patient was on Lasix and he is poor fluid intake, I will place it on hold. First set of troponins negative, will cycle them 3. Possible secondary to hypoglycemia as blood sugar was 73 in the ED. Continues telemetry monitoring. (2) Hypoglycemia Is this a current diagnosis for this admission?: Yes Plan: tells me that he has frequent episodes of hypoglycemia, blood sugar in the ED was 73 mg/dL, wondering if is the etiology of his fall. also tells me that he was hypoglycemic in the doctor's office but did not tell me the value or what was done. I will place the patient on Accu-Cheks every 3 hours overnight with hypoglycemia protocol and insulin sliding scale. Metformin on hold. (3) Diabetes mellitus type 2 in nonobese Is this a current diagnosis for this admission?: Yes Plan: As per prior assessment. (4) Hypertension Qualifiers: Hypertension type: essential hypertension Qualified Code(s): I10 - Essential (primary) hypertension Is this a current diagnosis for this admission?: Yes Plan: Continue with lisinopril, Lasix on hold. (5) Memory impairment Is this a current diagnosis for this admission?: Yes Plan: No diagnoses of dementia, is aware of memory problems. - Time Time Spent: 30 to 50 Minutes
[2017-10-08] MEDS ORDERED: LABETALOL HCL INJ 20 MG/4 ML DISP.SYRIN IV PRN (02:23)
[2017-10-08 03:21] LABS: HEMATOCRIT 41.5 % (37.9-51.0); HEMOGLOBIN 13.9 g/dL (13.5-17.0); MEAN CORPUSCULAR HGB CONC 33.4 g/dL (32.0-36.0); MEAN CORPUSCULAR VOLUME 84 fl (80-97); PLATELET COUNT 172 10^3/uL (150-450); RED BLOOD COUNT 4.95 10^6/uL (4.35-5.55); WHITE BLOOD COUNT 8.3 10^3/uL (4.0-10.5)
[2017-10-08 03:33] LABS: ANION GAP 12 (5-19); BLOOD UREA NITROGEN 13 mg/dL (7-20); CALCIUM 9.2 mg/dL (8.4-10.2); CARBON DIOXIDE 28 mmol/L (22-30); CHLORIDE 103 mmol/L (98-107); GLUCOSE 104 mg/dL (75-110); PHOSPHORUS 3.7 mg/dL (2.5-4.5); POTASSIUM 3.9 mmol/L (3.6-5.0); SODIUM 142.8 mmol/L (137-145)
[2017-10-08 08:09] VITALS: BP 149/72
[2017-10-08] MEDS ORDERED: LISINOPRIL 10 MG TABLET PO SCH (10:00)
[2017-10-08] MEDS ORDERED: ENOXAPARIN SODIUM INJ 40 MG/0.4 ML DISP.SYRIN SUBCUT SCH (10:00)
--- NOTE | 2017-10-08 18:48 | PDOC DISCHARGE SUMMARY ---
General - Admit/Disc Date/PCP Admission Date/Primary Care Provider: 10/07/17 19:54 Discharge Date: 10/08/17 - Left AMA - Discharge Diagnosis (1) Syncope Is this a current diagnosis for this admission?: Yes Summary: Left AMA before he could be fully evaluated and managed - Additional Information Home Medications: Furosemide [Lasix 20 mg Tablet] 20 mg PO DAILY 10/07/17 Lisinopril [Prinivil 40 mg Tablet] 40 mg PO DAILY 10/07/17 Metformin HCl [Metformin HCl ER] 500 mg PO DAILY 10/07/17 History of Present Illness History of Present Illness: FEDERICA HOLLAND is a 77 year old male from the [place] clinic office as the patient had a syncopal episode 2. I spoke with the over the phone and she tells me that at that time she was with the nurse he suddenly passed out, he was placed on the table and took his vital signs, apparently he had hypotension his blood sugar was low, unknown numbers, patient became diaphoretic. As per EMS patient had a second syncopal episode in the parking lot, patient states that he tripped but as per EMS he became diaphoretic and passed out. BS in the chemistry in the ED 75 mg/dl, tells me that he becomes hypoglycemic on and off, also tells me that he has not been drinking any water but he has been eating normally. Patient is unable to provide any history as per memory problems. tells me that he has been losing weight for 1 year. Patient usually walks with a walker to small steps. EKG shows heart rate of 64, sinus rhythm with poor R-wave progression, no acute ST elevation, depression. No orthostatic vital signs were done in the ED. CT head obtain as the patient has history of a stroke which came back negative. Hospital Course Hospital Course: Before I could even see the patient this morning, he left AGAINST MEDICAL ADVICE , therefore I cannot comment any further on the evaluation and management for this hospitalization. Physical Exam Vital Signs: Temp Pulse Resp BP Pulse Ox 97.5 F 63 17 149/72 H 99 10/08/17 04:00 10/08/17 07:00 10/08/17 08:00 10/08/17 06:59 10/08/17 08:00 Intake & Output 10/07/17 10/08/17 10/09/17 06:59 06:59 06:59 Output Total 600 Balance -600 Weight 77.3 kg Results Laboratory Results: 10/08/17 03:10 10/08/17 03:10 10/08/17 10/08/17 03:10 03:10 WBC 8.3 RBC 4.95 Hgb 13.9 Hct 41.5 MCV 84 MCH 28.0 MCHC 33.4 RDW 15.0 H Plt Count 172 Sodium 142.8 Potassium 3.9 Chloride 103 Carbon Dioxide 28 Anion Gap 12 BUN 13 Creatinine 0.59 Est GFR ( Amer) > 60 Est GFR (Non-Af Amer) > 60 Glucose 104 Calcium 9.2 Phosphorus 3.7 Magnesium 1.9 10/07/17 10/08/17 10/08/17 20:52 03:10 03:12 Creatine Kinase 223 H CK-MB (CK-2) 3.21 Troponin I < 0.012 < 0.012 Impressions: Chest X-Ray 10/07/17 15:28 IMPRESSION: NO ACUTE RADIOGRAPHIC FINDING IN THE CHEST. Head CT 10/07/17 17:24 IMPRESSION: No acute intracranial findings. EVIDENCE OF ACUTE STROKE: NO. Qualifiers - * PATIENT BEING DISCHARGED WITH ANY OF THE FOLLOWING DIAGNOSIS: No
== END 2017-10-08 08:54 | disposition left against medical advice (07) ==
LOC: ER 14:48 → EH 19:54 → ICU 10-08 01:39
PROVIDERS: ADMIT Internal Medicine; ATTEND Internal Medicine
DX: R55 Syncope and collapse (principal); Z53.21 Procedure and treatment not carried out due to patient leaving prior to being seen by health care provider; E11.649 Type 2 diabetes mellitus with hypoglycemia without coma; I10 Essential (primary) hypertension; T81.89XS Other complications of procedures, not elsewhere classified, sequela; R60.0 Localized edema; R41.3 Other amnesia; Z86.73 Personal history of transient ischemic attack (TIA), and cerebral infarction without residual deficits; Z87.891 Personal history of nicotine dependence; Z83.3 Family history of diabetes mellitus; Z82.49 Family history of ischemic heart disease and other diseases of the circulatory system; Z79.899 Other long term (current) drug therapy
CPT/HCPCS: 93005; 99285; 36415 ×2; 82553; 82962; 82550 ×2; 83735; 84100; 85025; 85027; 80048; 80053; 81001; 84484 ×2; 83036; 71045; 70450; 93010; G0378 ×2

== ENCOUNTER → 2018-02-01 | Outpatient (CLI) | payer OTHER, BC ==
[2018-02-01 09:58] LABS: ABSOLUTE EOSINOPHILS # (AUTO) 0.1 10^3/uL (0.0-0.6); ABSOLUTE LYMPHOCYTES (AUTO) 1.6 10^3/uL (0.5-4.7); ABSOLUTE MONOCYTES (AUTO) 0.3 10^3/uL (0.1-1.4); ABSOLUTE NEUT (AUTO) 3.7 10^3/uL (1.7-8.2); BASOPHILS % (AUTO) 0.8 % (0-2); EOSINOPHILS % (AUTO) 1.6 % (0-6); HEMATOCRIT 40.7 % (37.9-51.0); HEMOGLOBIN 13.6 g/dL (13.5-17.0); LYMPHOCYTES % (AUTO) 27.3 % (13-45); MEAN CORPUSCULAR HEMOGLOBIN 28.3 pg (27.0-33.4); MEAN CORPUSCULAR HGB CONC 33.5 g/dL (32.0-36.0); MEAN CORPUSCULAR VOLUME 85 fl (80-97); MONOCYTES % (AUTO) 4.8 % (3-13); PLATELET COUNT 166 10^3/uL (150-450); RED BLOOD COUNT 4.81 10^6/uL (4.35-5.55); RED CELL DISTRIBUTION WIDTH 14.1 % (11.5-14.0); SEGMENTED NEUTROPHILS % (AUTO) 65.5 % (42-78); TOTAL CELLS COUNTED % (AUTO) 100 %; WHITE BLOOD COUNT 5.7 10^3/uL (4.0-10.5)
[2018-02-01 10:18] LABS: APPEARANCE,URINE CLEAR; BILIRUBIN,URINE NEGATIVE (NEGATIVE); COLOR,URINE YELLOW; GLUCOSE, URINE NEGATIVE (NEGATIVE); KETONES,URINE NEGATIVE (NEGATIVE); LEUKOCYTE ESTERASE,URINE NEGATIVE (NEGATIVE); NITRITE,URINE NEGATIVE (NEGATIVE); PROTEIN,URINE 30 mg/dL (NEGATIVE); URINE SPECIFIC GRAVITY 1.023
--- NOTE | 2018-02-01 10:21 | RADIOLOGY REPORT (SQ) ---
EXAM DESCRIPTION: CHEST PA/LATERAL COMPLETED DATE/TIME: 02/01/2018 9:49 am REASON FOR STUDY: PRE-OP COMPARISON: Chest films 10/07/2017 EXAM PARAMETERS: NUMBER OF VIEWS: two views TECHNIQUE: Digital Frontal and Lateral radiographic views of the chest acquired. RADIATION DOSE: NA LIMITATIONS: none FINDINGS: LUNGS AND PLEURA: No opacities, masses or pneumothorax. No pleural effusion. MEDIASTINUM AND HILAR STRUCTURES: No masses or contour abnormalities. HEART AND VASCULAR STRUCTURES: Heart normal size. No evidence for failure. BONES: No acute fracture. Old left shoulder replacement HARDWARE: None in the chest. OTHER: No other significant finding. IMPRESSION: NO SIGNIFICANT RADIOGRAPHIC FINDING IN THE CHEST. TECHNICAL DOCUMENTATION: JOB ID: [id number] [employer]- All Rights Reserved Reading location - IP/workstation name: [email or web address]
[2018-02-01 10:26] LABS: ANION GAP 9 (5-19); BLOOD UREA NITROGEN 14 mg/dL (7-20); CALCIUM 9.1 mg/dL (8.4-10.2); CARBON DIOXIDE 32 mmol/L (22-30); CHLORIDE 103 mmol/L (98-107); GLUCOSE 112 mg/dL (75-110); POTASSIUM 4.3 mmol/L (3.6-5.0)
--- NOTE | 2018-02-01 15:48 | EKG REPORT ---
SEVERITY:- OTHERWISE NORMAL ECG - SINUS RHYTHM ST ELEV, PROBABLE NORMAL EARLY REPOL PATTERN : Confirmed by: Haley Juarez MD 01-Feb-2018 15:46:57
== END ==
LOC: OD 08:59
PROVIDERS: ATTEND Orthopaedic Surgery
DX: Z01.818 Encounter for other preprocedural examination (principal); E11.9 Type 2 diabetes mellitus without complications
CPT/HCPCS: 36415; 71046; 80048; 81001; 83036; 85025; 93005; 93010

== ENCOUNTER 2018-02-28 07:37 | Inpatient (IN) | payer OTHER, MEDICARE, BC ==
[~2018-02-28 07:37] MED LIST: ACETAMINOPHEN 1,000 MG/100 ML RTUPB IV ONE; BUPIVACAINE HCL 0.25 % INJ/PF (2.5 MG/1 ML) 30 ML VIAL ONE; BUPIVACAINE HCL/DEX-WATER/PF 15 MG/2 ML AMPULE ONE; BUPIVACAINE INJ/PF LIPOSOME/PF 266 MG/20 ML SDV IJ PRN; CEFAZOLIN INJ 1 GM VIAL IV PRN; DEXAMETHASONE SOD PHOSPHATE INJ 4 MG/1 ML VIAL ONE; FENTANYL CITRATE INJ/PF 100 MCG/2 ML AMPUL ONE; IBUPROFEN 800 MG/NS 250 ML IV PRN; LACTATED RINGERS 1000 ML IV PRN; LANSOPRAZOLE 15 MG TAB.RAP.DR PO PRN; LIDOCAINE 0.5% INJ-PF (5 MG/ML) 50 ML SDV SUBCUT PRN; MIDAZOLAM 2 MG/2 ML INJ ONE; ONDANSETRON HCL INJ/PF 4 MG/2 ML SDV ONE; OXYCODONE HCL SR 10 MG TABLET PO PRN; PROPOFOL INJ 200 MG/20 ML VIAL IV ONE; THROMBIN (BOVINE) TOPICAL 5000 UNIT VIAL ONE; VANCOMYCIN HCL 1,000 MG in DEXTROSE 5%-WATER 250 ML IV PRN
[2018-02-28] MEDS ORDERED: LANSOPRAZOLE 15 MG TAB.RAP.DR ONE (09:01)
[2018-02-28] MEDS ORDERED: OXYCODONE HCL SR 10 MG TABLET PO ONE (09:01)
[2018-02-28] MEDS ORDERED: CEFAZOLIN INJ 1 GM VIAL ONE (09:01)
[2018-02-28] MEDS ORDERED: BUPIVACAINE HCL 0.25% /EPINEPHRINE INJ/PF 30 ML SDV ONE (09:14)
[2018-02-28] MEDS ORDERED: FENTANYL CITRATE INJ/PF 100 MCG/2 ML AMPUL IV PRN ×3 (10:53)
[2018-02-28] MEDS ORDERED: MEPERIDINE HCL/PF INJ 25 MG/1 ML DISP.SYRIN IV PRN (10:53)
[2018-02-28] MEDS ORDERED: PROMETHAZINE HCL INJ 25 MG/1 ML VIAL IV PRN ×2 (10:53)
[2018-02-28] MEDS ORDERED: ONDANSETRON HCL INJ/PF 4 MG/2 ML SDV IV PRN ×2 (10:53→11:36)
[2018-02-28] MEDS ORDERED: MORPHINE SULFATE 10 MG/ML INJ IV PRN ×5 (10:53→11:36)
[2018-02-28] MEDS ORDERED: DIPHENHYDRAMINE HCL 50 MG/ML VIAL IV PRN ×2 (10:53→11:36)
[2018-02-28] MEDS ORDERED: ZOLPIDEM TARTRATE 5 MG TABLET PO PRN (11:36)
[2018-02-28] MEDS ORDERED: RINGERS SOLUTION,LACTATED 1,000 ML IV PRN (11:36)
[2018-02-28] MEDS ORDERED: ACETAMINOPHEN 325 MG TABLET PO PRN (11:36)
[2018-02-28] MEDS ORDERED: OXYCODONE HCL IR 5 MG TABLET PO PRN (11:36)
[2018-02-28] MEDS ORDERED: MAG HYDROX/AL HYDROX/SIMETH SUSP 30 ML UDCUP PO PRN (11:36)
[2018-02-28] MEDS ORDERED: ONDANSETRON 4 MG TAB.RAPDIS PO PRN (11:36)
--- NOTE | 2018-02-28 11:36 | Operative Report ---
Operative Report DATE OF SURGERY: 02/28/18 PREOPERATIVE DIAGNOSIS: Right knee arthritis OPERATION: Right knee arthroplasty SURGEON: JC CEE ANESTHESIA: Spinal TISSUE REMOVED OR ALTERED: Bone to pathology ESTIMATED BLOOD LOSS: 100 PROCEDURE: Implants used: Femur: Joana triathlon size 8 CR femur Tibia: 8 tibia with a 50 mm intramedullary extension Tibial liner: 9 mm CS insert Patella: 40 mm oval patella Procedure with the patient supine on the operating table the right the limb is prepped and draped in a sterile fashion. The limb was elevated for exsanguination and the tourniquet inflated to 280 torr. The patient had a previous median incision in the distant past. An attempt is made to keep the new incision 7 cm from the status post distal aspect which is as close as it the 2 incisions approximately 1 another. Its then extended proximally across the patella and into the suprapatellar region. The knee is exposed.. Access is gained to the femoral canal through the intercondylar notch. Intramedullary alignment instrumentation used to resect 10 mm of distal femur in 5 of valgus. Sizing guide indicated a size 8 femur. Appropriate cutting jig is then used to fashion anterior posterior and chamfer cuts. Is noted at this point that the quality of the bone is extremely poor. A trial reduction femurs performed and this is judged to be adequate. Attention was next turned to the tibia. Using an extra medullary alignment system 9 millimeters was resected off the lateral tibial plateau. This is sized to a size 8 tibia. A trial reduction was now performed with a 8 femur and a 8 tibia using a 9 millimeters spacer. It is full extension and central patellofemoral tracking. The articular surface the patella was next resected using an oscillating saw. Because of the "poor quality of the bone, a decision was made to incorporate a tibial stem for better stabilization. A 50 mm x 12 mm tibial stem was applied to the tibial component. All trial implants were removed. Polymethylmethacrylate is mixed and used to cement the above implants in place. On adequate curing the cement excess cement was removed the tourniquet was deflated hemostasis obtained the wound is then closed in layers using interrupted Vicryl followed by geronimo. A sterile compressive dressing was applied and the patient returned to recovery room in satisfactory condition.
--- NOTE | 2018-02-28 12:32 | RADIOLOGY REPORT (SQ) ---
EXAM DESCRIPTION: KNEE RIGHT 2 VIEWS COMPLETED DATE/TIME: 02/28/2018 12:23 pm REASON FOR STUDY: Post OP -Long Cassette in PACU M17.11 UNILATERAL PRIMARY OSTEOARTHRITIS, RIGHT KN EE COMPARISON: None. NUMBER OF VIEWS: Two view(s). TECHNIQUE: Digital radiographic images of the right knee post-procedure. LIMITATIONS: None. FINDINGS: BONES: No worrisome or unexpected findings post-procedure. DEVICE: Total knee arthroplasty SOFT TISSUES: No worrisome findings. Expected postoperative soft tissue changes. IMPRESSION: SATISFACTORY POSTOPERATIVE RIGHT KNEE. TECHNICAL DOCUMENTATION: JOB ID: [id number] [employer]- All Rights Reserved Reading location - IP/workstation name: [email or web address]
[2018-02-28] MEDS ORDERED: GLUCAGON,HUMAN RECOMB 1 MG INJ IM PRN (12:33)
[2018-02-28] MEDS ORDERED: DEXTROSE 40% GEL 15 GM TUBE X 2 PO PRN (12:33)
[2018-02-28] MEDS ORDERED: DEXTROSE 50%-WATER SYRINGE 12.5 GM/25 ML DOSE IV PRN (12:33)
[2018-02-28] MEDS ORDERED: INSULIN LISPRO 100 UNIT/ML 3 ML VIAL SUBCUT PRN (12:33)
[2018-02-28] MEDS ORDERED: DEXTROSE 50%-WATER SYRINGE 25 GM/50 ML DOSE IV PRN (12:33)
[2018-02-28] MEDS ORDERED: DEXTROSE 40% GEL 15 GM TUBE PO PRN (12:33)
[2018-02-28] MEDS ORDERED: TRANEXAMIC ACID INJ/PF 1,000 MG/10 ML SDV IV ONE ×4 (13:30→19:48)
[2018-02-28] MEDS ORDERED: SUCCINYLCHOLINE CHLORIDE INJ 200 MG/10 ML VIAL ONE (13:53)
[2018-02-28] MEDS ORDERED: GLYCOPYRROLATE 1 MG/5 ML SYRINGE ONE (13:53)
[2018-02-28] MEDS ORDERED: (PENDING PHARMACY ID) (Carvedilol [Carvedilol] 12.5 MG) PO SCH (18:00)
[2018-02-28] MEDS: IBUPROFEN 800 MG in NORMAL SALINE 250 ML IV SCH (18:14)
[2018-02-28] MEDS: SENNOSIDES/DOCUSATE 8.6-50 MG 1 EACH TABLET PO SCH (18:20)
[2018-02-28] MEDS: PREGABALIN 75 MG CAPSULE PO SCH (18:20)
[2018-02-28] MEDS ORDERED: ATORVASTATIN CALCIUM 20 MG TABLET PO SCH (22:00)
[2018-02-28] MEDS ORDERED: VANCOMYCIN HCL 1,000 MG in DEXTROSE 5%-WATER 250 ML IV ONE (23:30)
[2018-03-01] MEDS: CARVEDILOL 12.5 MG TABLET PO SCH ×3 (00:23→22:53)
[2018-03-01] MEDS: OXYCODONE HCL SR 10 MG TABLET PO SCH ×3 (00:27→22:54)
[2018-03-01] MEDS: ATORVASTATIN CALCIUM 80 MG TABLET PO SCH ×2 (00:28→22:52)
[2018-03-01] MEDS: TAMSULOSIN HCL 0.4 MG CAP.SR.24H PO SCH ×2 (00:29→22:53)
[2018-03-01] MEDS: METFORMIN HCL 500 MG TABLET PO SCH ×3 (00:29→22:52)
[2018-03-01] MEDS: IBUPROFEN 800 MG in NORMAL SALINE 250 ML IV SCH ×3 (06:35→18:18)
[2018-03-01] MEDS: LANSOPRAZOLE 30 MG TAB.RAP.DR PO SCH (06:35)
[2018-03-01 07:17] LABS: HEMOGLOBIN 12.4 g/dL (13.5-17.0); MEAN CORPUSCULAR HEMOGLOBIN 28.2 pg (27.0-33.4); MEAN CORPUSCULAR HGB CONC 33.4 g/dL (32.0-36.0); MEAN CORPUSCULAR VOLUME 85 fl (80-97); PLATELET COUNT 152 10^3/uL (150-450); RED BLOOD COUNT 4.38 10^6/uL (4.35-5.55); RED CELL DISTRIBUTION WIDTH 14.7 % (11.5-14.0)
--- NOTE | 2018-03-01 07:26 | PDOC PROGRESS REPORT ---
Subjective Progress Note for:: 03/01/18 Reason For Visit: M17.11 UNILATERAL PRIMARY OSTEOARTHRITIS, RIGHT KN 78-year-old black male postop day 1 status post right knee arthroplasty. Patient with an uneventful postoperative course. Ambulated 80 feet with physical therapy yesterday. There is been ongoing wound drainage requiring reinforcement of the dressing. Physical Exam Vital Signs: Temp Pulse Resp BP Pulse Ox 36.4 C 79 17 164/81 H 100 02/28/18 23:24 02/28/18 23:24 02/28/18 23:24 02/28/18 23:24 02/28/18 23:24 Intake & Output 02/28/18 03/01/18 03/02/18 06:59 06:59 06:59 Intake Total 4366 Output Total 2800 Balance 1566 Weight 79.8 kg General appearance: PRESENT: no acute distress, mild distress, thin Head exam: PRESENT: normocephalic Respiratory exam: PRESENT: unlabored Cardiovascular exam: PRESENT: RRR Pulses: PRESENT: +1 pedal pulses bilateral Vascular exam: PRESENT: normal capillary refill GI/Abdominal exam: PRESENT: soft Rectal exam: PRESENT: deferred Extremities exam: PRESENT: other - Dressing change this morning. Wound is well approximated with geronimo. Wound edges are viable. There is no erythema. There is no active drainage at the current time. Sterile compressive dressing is replaced. Neurological exam: PRESENT: alert, awake, oriented to person, oriented to place , oriented to time, oriented to situation. ABSENT: motor sensory deficit Psychiatric exam: PRESENT: appropriate affect, normal mood. ABSENT: homicidal ideation, suicidal ideation Skin exam: PRESENT: dry, intact, warm. ABSENT: cyanosis, rash Results Laboratory Results: 03/01/18 06:23 03/01/18 06:23 WBC 10.0 RBC 4.38 Hgb 12.4 L Hct 37.0 L MCV 85 MCH 28.2 MCHC 33.4 RDW 14.7 H Plt Count 152 Impressions: Knee X-Ray 02/28/18 11:38 IMPRESSION: SATISFACTORY POSTOPERATIVE RIGHT KNEE. Status: Imported from PACS Assessment & Plan - Diagnosis (1) Arthritis of knee, right Is this a current diagnosis for this admission?: Yes Plan: Patient to be mobilized with physical therapy today. Dressing changes as needed. Anticipate discharge home with home health services and DME tomorrow - Time Time Spent with patient: 15-24 minutes Anticipated discharge: Home with Homehealth Within: within 24 hours
[2018-03-01 07:49] LABS: ANION GAP 8 (5-19); BLOOD UREA NITROGEN 17 mg/dL (7-20); CALCIUM 9.1 mg/dL (8.4-10.2); CARBON DIOXIDE 30 mmol/L (22-30); CHLORIDE 103 mmol/L (98-107); GLUCOSE 80 mg/dL (75-110); POTASSIUM 3.6 mmol/L (3.6-5.0); SODIUM 140.6 mmol/L (137-145)
[2018-03-01] MEDS: DONEPEZIL HCL 5 MG TABLET PO SCH (09:17)
[2018-03-01] MEDS: AMLODIPINE BESYLATE 10 MG TABLET PO SCH (09:18)
[2018-03-01] MEDS: ASPIRIN 325 MG TABLET PO SCH (09:18)
[2018-03-01] MEDS: LISINOPRIL 10 MG TABLET PO SCH (09:18)
[2018-03-01] MEDS: PRENATAL VITAMIN W DHA CAPSULE PO SCH (09:18)
[2018-03-01] MEDS: SENNOSIDES/DOCUSATE 8.6-50 MG 1 EACH TABLET PO SCH ×2 (09:19→18:18)
[2018-03-01] MEDS: PREGABALIN 75 MG CAPSULE PO SCH ×2 (09:19→18:18)
[2018-03-01] MEDS ORDERED: (PENDING PHARMACY ID) (Metformin Hcl [Metformin Hcl Er] 500 MG) PO SCH (10:00)
[2018-03-01] MEDS ORDERED: (PENDING PHARMACY ID) (Donepezil Hcl [Donepezil Hcl] 10 MG) PO SCH (10:00)
[2018-03-02] MEDS: IBUPROFEN 800 MG in NORMAL SALINE 250 ML IV SCH ×2 (03:30→10:18)
[2018-03-02 06:53] LABS: MEAN CORPUSCULAR VOLUME 85 fl (80-97)
--- NOTE | 2018-03-02 07:07 | PDOC DISCHARGE SUMMARY ---
General - Admit/Disc Date/PCP Admission Date/Primary Care Provider: 02/28/18 07:37 [facility] Discharge Date: 03/02/18 - Discharge Diagnosis (1) Arthritis of knee, right Is this a current diagnosis for this admission?: Yes - Additional Information Resuscitation Status: Full Code Home Medications: Lisinopril [Prinivil 40 mg Tablet] 40 mg PO DAILY 10/07/17 Metformin HCl [Metformin HCl ER] 500 mg PO DAILY 10/07/17 Atorvastatin Calcium [Lipitor 20 mg Tablet] 80 mg PO QHS 02/21/18 Carvedilol 12.5 mg PO BID 02/21/18 Tamsulosin HCl [Flomax] 0.4 g PO QPM 02/21/18 Acetaminophen [Pain Relief] 1,000 mg PO BIDP PRN 02/24/18 Amlodipine Besylate [Norvasc 10 mg Tablet] 10 mg PO DAILY 02/24/18 Cyanocobalamin (Vitamin B-12) [Vitamin B-12] 1,000 mg PO DAILY 02/24/18 Donepezil HCl 10 mg PO DAILY 02/24/18 [place]-3 Fatty Acids/Fish Oil [Fish Oil 1,000 mg Capsule] 1,000 mg PO BID 02/24/18 Aspirin [Ecotrin 325 mg EC Tablet] 325 mg PO DAILY 02/28/18 Lidocaine/Transparent Dressing [Lidocaine 4% Kit] 1 each TP TIDP PRN 02/28/18 History of Present Illness History of Present Illness: FEDERICA HOLLAND is a 78 year old male 78-year-old black male with progressive bilateral knee pain and ice and functio nal disability second osteoarthritis. Patient is admitted for elective right knee arthroplasty. Hospital Course Hospital Course: Patient undergoes a right knee arthroplasty without apparent complication. Is returned to floor in satisfactory condition. The day of surgery he has a modest amount of bleeding through his dressing and it has to be reinforced but he participates with physical therapy and ambulates 80 feet. On the first postoperative day the dressing is changed. The patient again ambulates 80 feet with physical therapy and is ready for discharge. Dressing is changed on the second postoperative day and the wound is clean dry and intact with no further drainage. Wound edges remain viable and approximated with geronimo. Physical Exam Vital Signs: Temp Pulse Resp BP Pulse Ox 36.9 C 74 15 149/62 H 100 03/01/18 23:00 03/01/18 23:00 12/18/18 23:00 03/01/18 23:00 03/01/18 23:00 Intake & Output 03/01/18 03/02/18 03/03/18 06:59 06:59 06:59 Intake Total 4366 2230 Output Total 2800 770 Balance 1566 1460 Weight 79.8 kg 79.1 kg General appearance: PRESENT: no acute distress Head exam: PRESENT: normocephalic Respiratory exam: PRESENT: unlabored Cardiovascular exam: PRESENT: RRR Pulses: PRESENT: +1 pedal pulses bilateral GI/Abdominal exam: PRESENT: soft Rectal exam: PRESENT: deferred Extremities exam: PRESENT: other - Dressing is changed prior to discharge. Wound edges are approximately geronimo. There is no ongoing drainage. Skin edges are viable. Minimal pedal edema. Distal neurovascular examination is intact. Neurological exam: PRESENT: alert, awake, oriented to person, oriented to place, oriented to time, oriented to situation. ABSENT: motor sensory deficit Psychiatric exam: PRESENT: appropriate affect, normal mood. ABSENT: homicidal ideation, suicidal ideation Skin exam: PRESENT: dry, intact, warm. ABSENT: cyanosis, rash Results Laboratory Results: 03/01/18 06:23 03/01/18 03/01/18 06:23 06:23 WBC 10.0 RBC 4.38 Hgb 12.4 L Hct 37.0 L MCV 85 MCH 28.2 MCHC 33.4 RDW 14.7 H Plt Count 152 Sodium 140.6 Potassium 3.6 Chloride 103 Carbon Dioxide 30 Anion Gap 8 BUN 17 Creatinine 0.91 Est GFR ( Amer) > 60 Est GFR (Non-Af Amer) > 60 Glucose 80 Calcium 9.1 Impressions: Knee X-Ray 02/28/18 11:38 IMPRESSION: SATISFACTORY POSTOPERATIVE RIGHT KNEE. Status: Imported from PACS Qualifiers - * PATIENT BEING DISCHARGED WITH ANY OF THE FOLLOWING DIAGNOSIS: No VTE patient discharged on overlapping Therapy?: Yes Plan Discharge Plan: Patient to be discharged home with home health services and DME. Follow-up Dr. Rascon and [facility] for surgery in 2 weeks for staple removal.
[2018-03-02] MEDS: LANSOPRAZOLE 30 MG TAB.RAP.DR PO SCH (07:30)
[2018-03-02 07:56] LABS: HEMATOCRIT 28.5 % (37.9-51.0); HEMOGLOBIN 9.7 g/dL (13.5-17.0); MEAN CORPUSCULAR HEMOGLOBIN 28.8 pg (27.0-33.4); MEAN CORPUSCULAR HGB CONC 33.9 g/dL (32.0-36.0); PLATELET COUNT 105 10^3/uL (150-450); RED BLOOD COUNT 3.35 10^6/uL (4.35-5.55); RED CELL DISTRIBUTION WIDTH 14.6 % (11.5-14.0); WHITE BLOOD COUNT 7.3 10^3/uL (4.0-10.5)
[2018-03-02] MEDS: ASPIRIN 325 MG TABLET PO SCH (10:14)
[2018-03-02] MEDS: CARVEDILOL 12.5 MG TABLET PO SCH ×2 (10:14→22:52)
[2018-03-02] MEDS: METFORMIN HCL 500 MG TABLET PO SCH ×2 (10:15→22:52)
[2018-03-02] MEDS: PREGABALIN 75 MG CAPSULE PO SCH ×2 (10:15→17:20)
[2018-03-02] MEDS: SENNOSIDES/DOCUSATE 8.6-50 MG 1 EACH TABLET PO SCH ×2 (10:17→17:20)
[2018-03-02] MEDS: OXYCODONE HCL SR 10 MG TABLET PO SCH (10:17)
[2018-03-02] MEDS: LISINOPRIL 10 MG TABLET PO SCH (10:17)
[2018-03-02] MEDS: PRENATAL VITAMIN W DHA CAPSULE PO SCH (10:17)
[2018-03-02] MEDS: AMLODIPINE BESYLATE 10 MG TABLET PO SCH (10:17)
[2018-03-02] MEDS: DONEPEZIL HCL 5 MG TABLET PO SCH (10:20)
[2018-03-02] MEDS: TAMSULOSIN HCL 0.4 MG CAP.SR.24H PO SCH (22:52)
[2018-03-02] MEDS: ATORVASTATIN CALCIUM 80 MG TABLET PO SCH (22:54)
[2018-03-03 06:23] LABS: HEMATOCRIT 29.6 % (37.9-51.0); MEAN CORPUSCULAR HEMOGLOBIN 28.7 pg (27.0-33.4); MEAN CORPUSCULAR HGB CONC 33.7 g/dL (32.0-36.0); MEAN CORPUSCULAR VOLUME 85 fl (80-97); PLATELET COUNT 109 10^3/uL (150-450); RED BLOOD COUNT 3.47 10^6/uL (4.35-5.55); RED CELL DISTRIBUTION WIDTH 14.4 % (11.5-14.0); WHITE BLOOD COUNT 8.3 10^3/uL (4.0-10.5)
[2018-03-03] MEDS: LANSOPRAZOLE 30 MG TAB.RAP.DR PO SCH (06:55)
--- NOTE | 2018-03-03 07:10 | PDOC PROGRESS REPORT ---
Subjective Progress Note for:: 03/03/18 Reason For Visit: M17.11 UNILATERAL PRIMARY OSTEOARTHRITIS, RIGHT KN 78-year-old black male now postop day 3 status post right knee arthroplasty. Initial plan was for discharge home but this has been change in the patient is waiting for rehabilitation bed. Physical Exam Vital Signs: Temp Pulse Resp BP Pulse Ox 37.1 C 72 18 127/48 H 98 03/03/18 00:00 03/03/18 00:00 03/03/18 00:00 03/03/18 00:00 03/03/18 00:00 Intake & Output 03/02/18 03/03/18 03/04/18 06:59 06:59 06:59 Intake Total 2230 1289 Output Total 770 1800 Balance 1460 -511 Weight 79.1 kg 80 kg General appearance: PRESENT: no acute distress, thin Head exam: PRESENT: normocephalic Respiratory exam: PRESENT: unlabored Cardiovascular exam: PRESENT: RRR Pulses: PRESENT: +1 pedal pulses bilateral Extremities exam: PRESENT: other - Right knee dressing clean dry and intact. Minimal pedal edema. Distal neurovascular examination is intact. Results Laboratory Results: 03/03/18 05:30 03/01/18 06:23 03/02/18 03/03/18 04:46 05:30 WBC 7.3 8.3 RBC 3.35 L 3.47 L Hgb 9.7 L D 10.0 L Hct 28.5 L 29.6 L MCV 85 85 MCH 28.8 28.7 MCHC 33.9 33.7 RDW 14.6 H 14.4 H Plt Count 105 L 109 L Impressions: Knee X-Ray 02/28/18 11:38 IMPRESSION: SATISFACTORY POSTOPERATIVE RIGHT KNEE. Status: Imported from PACS Assessment & Plan - Diagnosis (1) Arthritis of knee, right Is this a current diagnosis for this admission?: Yes Plan: Patient can continue with physical therapy and weightbearing as tolerated basis. - Time Time Spent with patient: 15-24 minutes Anticipated discharge: SNF Within: when bed available
[2018-03-03] MEDS: AMLODIPINE BESYLATE 10 MG TABLET PO SCH (11:15)
[2018-03-03] MEDS: PRENATAL VITAMIN W DHA CAPSULE PO SCH (11:15)
[2018-03-03] MEDS: SENNOSIDES/DOCUSATE 8.6-50 MG 1 EACH TABLET PO SCH (11:15)
[2018-03-03] MEDS: CARVEDILOL 12.5 MG TABLET PO SCH (11:15)
[2018-03-03] MEDS: ASPIRIN 325 MG TABLET PO SCH (11:15)
[2018-03-03] MEDS: LISINOPRIL 10 MG TABLET PO SCH (11:16)
[2018-03-03] MEDS: METFORMIN HCL 500 MG TABLET PO SCH (11:16)
[2018-03-03] MEDS: PREGABALIN 75 MG CAPSULE PO SCH (11:21)
[2018-03-03] MEDS: DONEPEZIL HCL 5 MG TABLET PO SCH (11:21)
[2018-03-03 20:53] VITALS: BP 140/59
== END 2018-03-03 20:55 | DRG 470 ==
LOC: INOR 07:37 → 4S 12:58
PROVIDERS: ADMIT Orthopaedic Surgery; ATTEND Orthopaedic Surgery
PROC: 0SRC0J9 Replacement of Right Knee Joint with Synthetic Substitute, Cemented, Open Approach (ICD-10-PCS; principal; 2018-02-28 10:00)
DX: M17.11 Unilateral primary osteoarthritis, right knee (principal); E78.00 Pure hypercholesterolemia, unspecified; E11.9 Type 2 diabetes mellitus without complications; I10 Essential (primary) hypertension; Z79.899 Other long term (current) drug therapy; Z79.82 Long term (current) use of aspirin; Z79.84 Long term (current) use of oral hypoglycemic drugs
CPT/HCPCS: 01402; 36415; 80048; 82962; 85027; 88305; 88311; 94799; C1713; C1776; G8978-GP; G8979-GP; G8987-GO; G8988-GO; J0131; J0330; J0690; J1100; J1741; J2250; J2405; J2704; J3010; J3370; J3490; J7050; J7060

== ENCOUNTER 2018-03-09 19:11 | Emergency (ER) | payer OTHER, MEDICARE, BC ==
[2018-03-09] MEDS ORDERED: LIDOCAINE 1%/EPINEPHRINE INJ 20 ML VIAL INJ ONE (19:29)
--- NOTE | 2018-03-09 19:38 | ER Document Report ---
ED Fall - General Chief Complaint: Fall Injury Stated Complaint: FALL/ BODYACHES Time Seen by Provider: 03/09/18 19:28 TRAVEL OUTSIDE OF THE [place] IN LAST 30 DAYS: No - HPI Occurred: Just prior to arrival Where: [facility] Context: Tripped Associated symptoms: denies: Lost consciousness Location of injury/pain: Head Quality of pain: No pain Severity: None Notes: Patient is a 78-year-old male that presents to the emergency department for chief complaint of head injury. Patient states that he was turning on the light and attempting to get into bed when he tripped. He states he hit his head on the floor. He denied any loss of consciousness. Patient denies any syncopal event stating that he could not see after turning on the light hand was trying to walk alongside the bed and just lost his balance. He recently had a right total knee replacement and states that he is not having any increased pain in the right knee. He denies any pain after his fall. He denies any vision changes, nausea, headache, numbness or weakness. He does not know when his last tetanus vaccination was. Past Medical History: Hypertension, diabetes Past Surgical History: Right total knee arthroplasty Social History: Denies drugs alcohol and tobacco Family History: Reviewed and noncontributory for presenting illness Allergies: Reviewed, see documented allergy list. REVIEW OF SYSTEMS: CONSTITUTIONAL : No fever No chills No diaphoresis No recent illness EENT: No vision changes No congestion No sore throat CARDIOVASCULAR: No chest pain No palpitations RESPIRATORY: No shortness of breath No cough No difficulty breathing GASTROINTESTINAL: No abdominal pain No nausea No vomiting No diarrhea GENITOURINARY: No dysuria No hematuria No difficulty urinating MUSCULOSKELETAL: No back pain No leg pain No arm pain SKIN: No rashes lesions LYMPHATIC: No swollen, enlarged glands. NEUROLOGICAL: No lightheadedness No headache No weakness No paresthesias PSYCHIATRIC: No anxiety No depression PHYSICAL EXAMINATION: Vital signs reviewed, nursing noted reviewed. GENERAL: Well-appearing, well-nourished and in no acute distress. HEAD: Cephalhematoma above right eyebrow, normocephalic. EYES: Eyes appear normal, extraocular movements intact, sclera anicteric, conjunctiva are normal. ENT: No facial bone tenderness or laxity. No nasal septal hematoma or nasal bridge tenderness. Nares patent, oropharynx clear without exudates. Moist mucous membranes. NECK: Nontender. Normal range of motion, supple without lymphadenopathy LUNGS: Breath sounds clear to auscultation bilaterally and equal. No wheezes rales or rhonchi. HEART: Regular rate and rhythm without murmurs ABDOMEN: Soft, nontender, normoactive bowel sounds. No rebound, guarding, or rigidity. No masses appreciated. EXTREMITIES: Postoperative dressing on right knee with right knee edema, nontender, trace bilateral lower extremity edema NEUROLOGICAL: No focal neurological deficits. Moves all extremities spont aneously Motor and sensory grossly intact on exam. PSYCH: Normal mood, normal affect. SKIN: Warm, Dry, normal turgor, 1.0 cm linear laceration above right eyebrow with no active bleeding - Related data Allergies/Adverse Reactions: No Known Allergies Allergy (Verified 02/28/18 08:46) Past Medical History - Social History Smoking Status: Never Smoker Family History: Reviewed & Not Pertinent - Past Medical History Cardiac Medical History: Reports: Hx Hypercholesterolemia, Hx Hypertension Denies: Hx Atrial Fibrillation, Hx Congestive Heart Failure, Hx Coronary Artery Disease, Hx Heart Attack, Hx Peripheral Vascular Disease, Hx Heart Murmur Pulmonary Medical History: Denies: Hx Asthma, Hx Pneumonia, Hx Sleep Apnea Neurological Medical History: Denies: Hx Cerebrovascular Accident, Hx Seizures Endocrine Medical History: Reports: Hx Diabetes Mellitus Type 2. Denies: Hx Graves' Disease, Hx Hyperthyroidism, Hx Hypothyroidism Renal/ Medical History: Reports: Hx Benign Prostatic Hyperplasia. Denies: Hx End Stage Renal Disease, Hx Kidney Stones, Hx Peritoneal Dialysis GI Medical History: Denies: Hx Crohn's Disease, Hx Gastroesophageal Reflux Disease, Hx Hiatal Hernia, Hx Irritable Bowel, Hx Liver Failure, Hx Pancreatitis, Hx Ulcer Musculoskeletal Medical History: Reports Hx Arthritis - knees, Denies Hx Fibromyalgia, Denies Hx Multiple Sclerosis, Denies Hx Muscular Dystrophy Psychiatric Medical History: Reports: Hx Depression, Hx Post Traumatic Stress Disorder Denies: Hx Bipolar Disorder, Hx Dementia Traumatic Medical History: Denies: Hx Fractures Past Surgical History: Reports: Hx Orthopedic Surgery - Right shoulder replacement, right knee replacement. Denies: Hx Appendectomy, Hx Bowel Surgery, Hx Cholecystectomy, Hx Colostomy, Hx Coronary Artery Bypass Graft, Hx Gastric Bypass Surgery, Hx Herniorrhaphy, Hx Pacemaker, Hx Tonsillectomy Physical Exam - Vital signs Vitals: Temp Pulse Resp BP Pulse Ox 97.8 F 75 18 170/75 H 100 12/26/18 19:17 03/09/18 19:17 03/09/18 19:17 03/09/18 19:17 03/09/18 19:17 Course - Re-evaluation Re-evalutation: 03/09/18 19:37 Vitals reviewed. Nursing notes reviewed. Patient is alert and in no acute distress. He has no focal neurologic deficits and is oriented. He has a small hematoma above his right eyebrow with overlying laceration that is not bleeding. Tetanus vaccine was updated. CT scan of the head, neck, and facial area will be obtained to evaluate for underlying injury. Patient's postop dressing on his knee is clean, dry and intact with no signs of acute injury to the knee with fall. 03/09/18 21:[address] scan showed no acute injury. Patient's laceration was repaired with 2 stitches. He will be discharged back to nursing facility in stable condition Cervical Spine CT 03/09/18 19:29 IMPRESSION: Negative for acute cervical spine bony trauma. Head CT 03/09/18 19:29 IMPRESSION: 1. No acute post traumatic intracranial finding. 2. Small right frontal scalp hematoma. TECHNICAL DOCUMENTATION: Quality ID # 436: Final reports with documentation of one or more dose reduction techniques (e.g., Automated exposure control, adjustment of the mA and/or kV according to patient size, use of iterative reconstruction technique) copyright 2011 [employer]- All Rights Reserved 03/09/18 22:06 - Vital Signs Vital signs: Temp Pulse Resp BP Pulse Ox 97.8 F 75 18 170/75 H 100 03/09/18 19:17 03/09/18 19:17 03/09/18 19:17 03/09/18 19:17 03/09/18 19:17 Procedures - Laceration/Wound Repair Head Time completed: 22:05 Wound length (cm): 1.0 Wound's Depth, Shape: Superficial, Linear Laceration pre-procedure: Sterile PPE donned, Chloraprep applied Anesthetic type: 1% Lidocaine w/epi Volume Anesthetic (mLs): 2 Wound explored: Clean Wound Repaired With: Sutures Suture Size/Type: 5:0, Nylon Number of Sutures: 2 Layer Closure?: No Post-procedure wound care: Other - Gauze dressing applied Post-procedure NV exam normal: Yes Complications: No Discharge - Discharge Clinical Impression: Forehead laceration Qualifiers: Encounter type: initial encounter Qualified Code(s): S01.81XA - Laceration without foreign body of other part of head, initial encounter Traumatic hematoma of forehead Qualifiers: Encounter type: initial encounter Qualified Code(s): S00.83XA - Contusion of other part of head, initial encounter Closed head injury Qualifiers: Encounter type: initial encounter Qualified Code(s): S09.90XA - Unspecified injury of head, initial encounter Condition: Stable Disposition: HOME-SNF (ED ONLY) Instructions: Tetanus Immunization Given ([facility]), Laceration Care ([facility]), Head Injury Precautions ([facility]) Additional Instructions: Please return to the emergency department if you have any worsening, or concern of your symptoms. Please return to the emergency department if you develop chest pain, difficulty breathing, severe abdominal pain, or ongoing vomiting. Please follow-up with your primary care physician in 2-3 days and any other recommended physicians. If prescribed, take all medications as directed. If you have any questions or concerns do not hesitate to return the emergency department for evaluation. Have sutures removed in 5 days by your primary care provider Referrals: [facility] [Primary Care Provider] - Follow up in 3-5 days (Suture removal in 5 days)
--- NOTE | 2018-03-09 21:23 | RADIOLOGY REPORT (SQ) ---
PROCEDURE: CT OF THE CERVICAL SPINE WITHOUT INTRAVENOUS CONTRAST HISTORY: trauma Indication: Same as above Comparison: None Technique: CT of the cervical spine was done without intravenous contrast, including axial, sagittal and coronal reconstructions. This exam was performed according to our departmental dose-optimization program, which includes automated exposure control, adjustment of the mA and/or KV according to the patient's size and/or use of iterative reconstruction technique. FINDINGS: There is no CT evidence of acute cervical spinal fractures or dislocations. The craniovertebral junction appears unremarkable. There is also evidence of moderate to significant amount of degenerative change, including osteophyte formation, reduction in the intervertebral disc spaces, endplate degenerative changes and facet arthropathy seen at few levels in the cervical spine. Segmental calcification of the posterior nuchal ligament is seen in the upper portion of the neck There is limited evaluation for acute or chronic intervertebral disc herniations or protrusions given the limitation of lack of intrathecal contrast. The prevertebral and the paravertebral soft tissues appear unremarkable. There is no gross evidence of epidural hematoma or paraspinal soft tissue fluid collections. The remainder of the visualized surrounding subcutaneous soft tissues and muscle structures are grossly unremarkable. The visualized airway appears unremarkable. Vascular calcifications in the bilateral carotid distribution are noted The visualized lung apices are unremarkable . The sagittal reconstructed images demonstrate normal alignment The coronal reconstructed images demonstrate normal alignment. IMPRESSION: Negative for acute cervical spine bony trauma.
--- NOTE | 2018-03-09 21:26 | RADIOLOGY REPORT (SQ) ---
PROCEDURE: CT OF THE FACIAL BONES WITHOUT INTRAVENOUS CONTRAST Clinical History: trauma Indication: Same as above Comparison: None Technique: The study was completed on 03/09/2018 at 8:[address] of the facial bones was done, without intravenous contrast in the axial, sagittal and coronal planes. This exam was performed according to our departmental dose-optimization program, which includes automated exposure control, adjustment of the mA and/or KV according to the patient's size and/or use of iterative reconstruction technique. Findings: There is no CT evidence of acute fractures or dislocations involving the facial bones. The paranasal sinuses show no significant mucoperiosteal thickening. There is no visualization of air fluid levels in the paranasal sinuses. The bilateral mastoid air cells are unremarkable . The bilateral temporomandibular joints are intact. The visualized cervical spine is unremarkable, with intact craniovertebral junction . Impression: Negative for acute facial bony trauma Location of Interpretation: [facility].
--- NOTE | 2018-03-09 21:27 | RADIOLOGY REPORT (SQ) ---
EXAM DESCRIPTION: CT HEAD WITHOUT IV CONTRAST COMPLETED DATE/TME: 03/09/2018 19:29 CLINICAL HISTORY: 78 years, Male, trauma COMPARISON: 10/07/2017 and 09/11/2016 TECHNIQUE: Contiguous axial images of the brain were obtained without the administration of intravenous contrast. Images stored on PACS. All CT scanners at this facility use dose modulation, iterative reconstruction, and/or weight based dosing when appropriate to reduce radiation dose to as low as reasonably achievable (ALARA). [facility]: Dose Right [facility]: CareDose [facility]: Dose Right [facility]: Teradose 4D [facility]: [employer] LIMITATIONS: None. Findings: Brain: No acute intracranial hemorrhage. No territorial infarct. No mass effect. Moderate cerebral atrophy. Mild periventricular and subcortical white matter hypoattenuation suggesting chronic small vessel disease. Stable focal low attenuation in the left insular lobe, likely reflecting old ischemia. Ventricles: Accounting for underlying cerebral atrophy, ventricular size appears within normal limits. Bones: No acute osseous finding. Paranasal sinuses: Well aerated. Mastoid air cells: Well aerated. Soft tissues: Thickened and heterogeneous right frontal scalp soft tissues consistent with a small scalp hematoma. IMPRESSION: 1. No acute post traumatic intracranial finding. 2. Small right frontal scalp hematoma. TECHNICAL DOCUMENTATION: Quality ID # 436: Final reports with documentation of one or more dose reduction techniques (e.g., Automated exposure control, adjustment of the mA and/or kV according to patient size, use of iterative reconstruction technique) copyright 2010 [employer]- All Rights Reserved
[2018-03-10 02:55] VITALS: BP 145/76
== END 2018-03-10 02:55 ==
LOC: ER 19:11
DX: S01.81XA Laceration without foreign body of other part of head, initial encounter (principal); S09.90XA Unspecified injury of head, initial encounter; W01.0XXA Fall on same level from slipping, tripping and stumbling without subsequent striking against object, initial encounter; Y92.129 Unspecified place in nursing home as the place of occurrence of the external cause; I10 Essential (primary) hypertension; E11.9 Type 2 diabetes mellitus without complications; Z96.651 Presence of right artificial knee joint; E78.00 Pure hypercholesterolemia, unspecified; Z96.611 Presence of right artificial shoulder joint; Z23 Encounter for immunization
CPT/HCPCS: 99284; 70450; 70486; 72125; 12011; J3490

== ENCOUNTER → 2018-06-21 | Outpatient (CLI) | payer OTHER ==
--- NOTE | 2018-06-22 08:33 | RADIOLOGY REPORT (SQ) ---
EXAM DESCRIPTION: PET CT SKULL/THIGH COMPLETED DATE/TIME: 06/21/2018 10:17 pm REASON FOR STUDY: R91.8 OTHER NONSPECIFIC ABNORMAL FINDING OF LUNG FIELD R91.8 OTHER NONSPECIFIC AB NORMAL FINDING OF LUNG FIELD COMPARISON: None. RADIONUCLIDE AND DOSE: 11.5 mCi F18 FDG The route of agent administration: Intravenous FASTING BLOOD SUGAR: 100 mg/dl CONTRAST TYPE AND DOSE: No CT contrast given. TECHNIQUE: Blood glucose level was verified. Above dose of FDG was injected intravenously. 2-D seg mented attenuation correction images were obtained from the base of the skull to the midthighs. Nonc ontrast CT images were obtained for attenuation correction and fusion with emission images. CT image s were performed without oral or intravenous contrast and are not sensitive for parenchymal lesions. A series of overlapping emission PET images were obtained. Images reviewed and manipulated at [facility] work station by the radiologist. Images stored on PACS. LIMITATIONS: None. FINDINGS: HEAD AND NECK: No areas of abnormal metabolic activity in the soft tissues of the head and neck. CHEST: No areas of abnormal metabolic activity in the chest. Specifically, minimal bandlike scarring in the right posterolateral costophrenic sulcus is present on axial image 111/303. This measures 9 x 7 mm in size and has SUV of 0.7. This most likely represents benign scar tissue. Continued period ic surveillance with low-dose CT screening chest recommended. There is minimal bandlike scarring in the left lateral costophrenic sulcus too small to characterize by PET-CT. No other worrisome pulmonary nodules. ABDOMEN AND PELVIS: No areas of abnormal metabolic activity in the abdomen or pelvis. Expected physi ologic activity is present in the genitourinary system and bowel. PROXIMAL LOWER EXTREMITIES: No areas of abnormal metabolic activity in the soft tissues of the lower extremities. BONES: No abnormal metabolic activity in the visualized skeleton. ADDITIONAL CT FINDINGS: Diffuse degenerative changes throughout the cervical and lumbar spine. Left humerus hardware. Heavily calcified coronary arteries, carotid bifurcations, abdominal aorta without aneurysm. 5 cm left midpole renal cortical cyst. OTHER: Blood pool background activity 1.5 SUV. Liver background activity 2.0 SUV IMPRESSION: Small probably benign bibasilar lung parenchymal findings for which continued low-dose s creening chest CT is recommended TECHNICAL DOCUMENTATION: JOB ID: [id number]- All Rights Reserved Reading location - IP/workstation name: [email or web address]
== END ==
LOC: RAD 17:51
PROVIDERS: ATTEND Clinical Nurse Specialist Adult Health
DX: R91.1 Solitary pulmonary nodule (principal)
CPT/HCPCS: 78815; A9552

== ENCOUNTER 2019-10-11 01:06 | Emergency (ER) | payer OTHER ==
[2019-10-11 03:15] LABS: ABSOLUTE LYMPHOCYTES (AUTO) 0.4 10^3/uL (0.5-4.7); ABSOLUTE MONOCYTES (AUTO) 0.4 10^3/uL (0.1-1.4); ABSOLUTE NEUT (AUTO) 4.1 10^3/uL (1.7-8.2); BASOPHILS % (AUTO) 0.6 % (0-2); EOSINOPHILS % (AUTO) 0.9 % (0-6); HEMATOCRIT 34.4 % (37.9-51.0); HEMOGLOBIN 11.7 g/dL (13.5-17.0); LYMPHOCYTES % (AUTO) 8.8 % (13-45); MEAN CORPUSCULAR HEMOGLOBIN 29.7 pg (27.0-33.4); MEAN CORPUSCULAR HGB CONC 33.9 g/dL (32.0-36.0); MEAN CORPUSCULAR VOLUME 88 fl (80-97); MONOCYTES % (AUTO) 7.4 % (3-13); PLATELET COUNT 159 10^3/uL (150-450); RED BLOOD COUNT 3.93 10^6/uL (4.35-5.55); RED CELL DISTRIBUTION WIDTH 15.1 % (11.5-14.0); SEGMENTED NEUTROPHILS % (AUTO) 82.3 % (42-78); TOTAL CELLS COUNTED % (AUTO) 100 %
--- NOTE | 2019-10-11 03:17 | ER Document Report ---
ED Medical Screen (RME) - General Chief Complaint: General Weakness Stated Complaint: GENERAL WEAKNESS Time Seen by Provider: 10/11/19 01:52 Primary Care Provider: FRANKIE SHRESTHA NP [Primary Care Provider] - Follow up as needed Mode of Arrival: Wheelchair Information source: Patient, Relative - Notes: 79-year-old male patient presenting to the emergency department with a chief complaint of weakness. Patient is alert, oriented, answering all questions appropriately. He states he feels generally weaker than usual. He denies any unilateral weakness. He states that both of his legs feel weak. Systems Support Officer strength is equal bilaterally. Lower extremity strength equal bilaterally. No focal neurological deficits noted. I have greeted and performed a rapid initial assessment of this patient. A comprehensive ED assessment and evaluation of the patient, analysis of test results and completion of the medical decision making process will be conducted by additional ED providers. I have specifically instructed the patient or family members with the patient to immediately return to any nursing staff should anything change in the patient's condition or with their chief complaint. TRAVEL OUTSIDE OF THE [place] IN LAST 30 DAYS: No - Related Data Allergies/Adverse Reactions: No Known Allergies Allergy (Verified 02/28/18 08:46) Past Medical History - Past Medical History Cardiac Medical History: Reports: Hx Hypercholesterolemia, Hx Hypertension Denies: Hx Atrial Fibrillation, Hx Congestive Heart Failure, Hx Coronary Artery Disease, Hx Heart Attack, Hx Peripheral Vascular Disease, Hx Heart Murmur Pulmonary Medical History: Denies: Hx Asthma, Hx Pneumonia, Hx Sleep Apnea Neurological Medical History: Denies: Hx Cerebrovascular Accident, Hx Seizures, Hx Parkinson's Disease Endocrine Medical History: Reports: Hx Diabetes Mellitus Type 2. Denies: Hx Graves' Disease, Hx Hyperthyroidism, Hx Hypothyroidism Renal/ Medical History: Reports: Hx Benign Prostatic Hyperplasia. Denies: Hx End Stage Renal Disease, Hx Kidney Stones, Hx Peritoneal Dialysis GI Medical History: Denies: Hx Crohn's Disease, Hx Gastroesophageal Reflux Disease, Hx Hiatal Hernia, Hx Irritable Bowel, Hx Liver Failure, Hx Pancreatitis, Hx Ulcer Musculoskeltal Medical History: Reports Hx Arthritis - knees, Denies Hx Fibromyalgia, Denies Hx Multiple Sclerosis, Denies Hx Muscular Dystrophy, Denies Hx Systemic Lupus Erythematosus Psychiatric Medical History: Reports: Hx Depression, Hx Post Traumatic Stress Disorder Denies: Hx Bipolar Disorder, Hx Dementia Traumatic Medical History: Denies: Hx Fractures Past Surgical History: Reports: Hx Orthopedic Surgery - Right shoulder replacement, right knee replacement. Denies: Hx Appendectomy, Hx Bowel Surgery, Hx Cholecystectomy, Hx Colostomy, Hx Coronary Artery Bypass Graft, Hx Gastric Bypass Surgery, Hx Herniorrhaphy, Hx Pacemaker, Hx Tonsillectomy Physical Exam - Vital signs Vitals: Temp Pulse Resp BP Pulse Ox 98.4 F 64 14 112/67 96 10/11/19 01:24 10/11/19 01:24 10/11/19 01:24 10/11/19 01:24 10/11/19 01:24 Course - Vital Signs Vital signs: Temp Pulse Resp BP Pulse Ox 98.4 F 49 L 18 93/52 L 97 10/11/19 01:24 10/11/19 01:49 10/11/19 01:49 10/11/19 01:49 10/11/19 01:49 - Laboratory Result Diagrams: 10/11/19 02:20 10/11/19 02:20 Doctor's Discharge - Discharge Referrals: FRANKIE SHRESTHA NP [Primary Care Provider] - Follow up as needed
[2019-10-11 03:19] LABS: ALBUMIN 3.6 g/dL (3.5-5.0); ALKALINE PHOSPHATASE 45 U/L (38-126); ASPARTATE AMINO TRANSFERASE 35 U/L (17-59); BILIRUBIN,TOTAL 0.5 mg/dL (0.2-1.3); BLOOD UREA NITROGEN 15 mg/dL (7-20); CARBON DIOXIDE 27 mmol/L (22-30); GLUCOSE 103 mg/dL (75-110); POTASSIUM 3.8 mmol/L (3.6-5.0); TOTAL PROTEIN 6.4 g/dL (6.3-8.2)
[2019-10-11 03:25] LABS: ANION GAP 5 (5-19); CHLORIDE 101 mmol/L (98-107)
[2019-10-11] MEDS ORDERED: NORMAL SALINE 1000 ML 1,000 ML IV ONE (05:07)
--- NOTE | 2019-10-11 06:17 | RADIOLOGY REPORT (SQ) ---
EXAM DESCRIPTION: XR CHEST 1 VIEW COMPLETED DATE/TME: 10/11/2019 05:04 CLINICAL HISTORY: 79 years, Male, generalized weakness COMPARISON: None. TECHNIQUE: Upright portable chest x-ray FINDINGS: Left shoulder prosthesis. Cardiomediastinal silhouette is not enlarged. Mild hyperinflation. No acute lung pleural bone abnormalities. IMPRESSION: No acute findings in chest.
--- NOTE | 2019-10-11 07:36 | ER Document Report ---
ED Dizziness/Weakness - General Chief Complaint: General Weakness Stated Complaint: GENERAL WEAKNESS Time Seen by Provider: 10/11/19 01:52 Primary Care Provider: FRANKIE SHRESTHA NP [NO LOCAL MD] - Follow up as needed Mode of Arrival: Wheelchair Information source: Patient, Relative TRAVEL OUTSIDE OF THE [place] IN LAST 30 DAYS: No - HPI Notes: Patient is brought in from home with weakness. Patient has dementia and is a poor historian. I did call and speak with the . She states that the patient fell yesterday and she was unable to get him off of the floor. She states that this is unusual usually he is able to get up on his own. She states that he does use a walker to get around the house. There is been no recent fe vers or coughing. No vomiting or diarrhea. No other known trauma. Patient states she is having some pain in the left hip area. It does appear to get worse with movement and better with rest. He does states that it radiates down the left leg. It appears to be mild. It appears to be constant. He is unable to describe the pain for me. He denies any other significant pain at this time. - Related Data Allergies/Adverse Reactions: No Known Allergies Allergy (Verified 02/28/18 08:46) Past Medical History - General Information source: Patient, Relative - - Social History Smoking Status: Former Smoker Frequency of alcohol use: None Drug Abuse: None Family History: Reviewed & Not Pertinent Patient has homicidal ideation: No - Past Medical History Cardiac Medical History: Reports: Hx Hypercholesterolemia, Hx Hypertension Denies: Hx Atrial Fibrillation, Hx Congestive Heart Failure, Hx Coronary Artery Disease, Hx Heart Attack, Hx Peripheral Vascular Disease, Hx Heart Murmur Pulmonary Medical History: Denies: Hx Asthma, Hx Pneumonia, Hx Sleep Apnea Neurological Medical History: Denies: Hx Cerebrovascular Accident, Hx Seizures, Hx Parkinson's Disease Endocrine Medical History: Reports: Hx Diabetes Mellitus Type 2. Denies: Hx Graves' Disease, Hx Hyperthyroidism, Hx Hypothyroidism Renal/ Medical History: Reports: Hx Benign Prostatic Hyperplasia. Denies: Hx End Stage Renal Disease, Hx Kidney Stones, Hx Peritoneal Dialysis GI Medical History: Denies: Hx Crohn's Disease, Hx Gastroesophageal Reflux Disease, Hx Hiatal Hernia, Hx Irritable Bowel, Hx Liver Failure, Hx Pancreatitis, Hx Ulcer Musculoskeletal Medical History: Reports Hx Arthritis - knees, Denies Hx Fibromyalgia, Denies Hx Multiple Sclerosis, Denies Hx Muscular Dystrophy, Denies Hx Systemic Lupus Erythematosus Psychiatric Medical History: Reports: Hx Depression, Hx Post Traumatic Stress Disorder Denies: Hx Bipolar Disorder, Hx Dementia Traumatic Medical History: Denies: Hx Fractures Past Surgical History: Reports: Hx Orthopedic Surgery - Right shoulder replacement, right knee replacement. Denies: Hx Appendectomy, Hx Bowel Surgery, Hx Cholecystectomy, Hx Colostomy, Hx Coronary Artery Bypass Graft, Hx Gastric Bypass Surgery, Hx Herniorrhaphy, Hx Pacemaker, Hx Tonsillectomy Review of Systems - Review of Systems -: Yes ROS unobtainable due to patient's medical condition - Unable to obtain review of symptoms due to patient's dementia Physical Exam - Vital signs Vitals: Temp Pulse Resp BP Pulse Ox 98.4 F 64 14 112/67 96 10/11/19 01:24 10/11/19 01:24 10/11/19 01:24 10/11/19 01:24 10/11/19 01:24 Interpretation: Normal - General General appearance: Appears well, Alert - HEENT Head: Normocephalic, Atraumatic Eyes: Normal Pupils: PERRL - Respiratory Respiratory status: No respiratory distress Chest status: Nontender Breath sounds: Normal Chest palpation: Normal - Cardiovascular Rhythm: Regular Heart sounds: Normal auscultation Murmur: No - Abdominal Inspection: Normal Distension: No distension Bowel sounds: Normal Tenderness: Nontender Organomegaly: No organomegaly - Back Back: Normal, Nontender - Extremities General upper extremity: Normal inspection, Nontender, Normal color, Normal ROM, Normal temperature General lower extremity: Normal inspection, Nontender, Normal color, Normal ROM, Normal temperature, Other - Specifically left hip was not tender to palpation and is able to fully range it without pain.. No: Leigha's sign - Neurological Cognition: Confused Orientation: Disoriented to place, Disoriented to time [place] Coma Scale Eye Opening: Spontaneous [place] Coma Scale Verbal: Confused [place] Coma Scale Motor: Obeys Commands [place] Coma Scale Total: 14 Speech: Normal Sensory: Normal - Psychological Associated symptoms: Normal affect, Normal mood - Skin Skin Temperature: Warm Skin Moisture: Dry Skin Color: Normal Course - Re-evaluation Re-evalutation: 10/11/19 07:34 Patient presents with the inability to get off the floor after a fall at home. I do not see any evidence of traumatic injury. I was able to ambulate the patient with the assistance of a nurse. Patient should be able to ambulate with assistance of a walker at home. Obviously will have to go slow. I am going to arrange for a social work consult to try to get some home health for the patient. I do not believe that in the middle of the COVID pandemic it would be beneficial or safe for the patient to stay in the hospital for his generalized weakness. The reason he seems to be having trouble ambulating is just due to generalized muscle weakness I do not see any evidence of infectious or traumatic pathology. I do not see any evidence of neurological deficits. The urine is still pending. Patient has been unable to give us a urine is actually urinated in the bed. I do not feel that obtaining a urine would significantly contribute to his care so this order has been canceled. - Vital Signs Vital signs: Temp Pulse Resp BP Pulse Ox 98.4 F 67 19 82/60 L 97 10/11/19 01:24 10/11/19 04:04 10/11/19 04:04 10/11/19 04:05 10/11/19 04:04 - Laboratory Result Diagrams: 10/11/19 02:20 10/11/19 02:20 Laboratory results interpreted by me: 10/11/19 10/11/19 02:20 02:20 RBC 3.93 L Hgb 11.7 L Hct 34.4 L RDW 15.1 H Lymph % (Auto) 8.8 L Absolute Lymphs (auto) 0.4 L Seg Neutrophils % 82.3 H Sodium 133.3 L - Diagnostic Test Radiology reviewed: Image reviewed, Reports reviewed - EKG Interpretation by [facility] EKG shows normal: Sinus rhythm Rate: Normal - 65 Rhythm: NSR When compared to previous EKG there are: No significant change - Compared to an EKG from September 2017 Discharge - Discharge Clinical Impression: Weakness Condition: Stable Disposition: HOME, SELF-CARE Instructions: Weakness ([facility]) Additional Instructions: Please follow up with Home Health as scheduled. Referrals: FRANKIE SHRESTHA NP [NO LOCAL MD] - Follow up tomorrow
[2019-10-11 08:18] LABS: APPEARANCE,URINE CLEAR; BILIRUBIN,URINE NEGATIVE (NEGATIVE); COLOR,URINE YELLOW; GLUCOSE, URINE NEGATIVE (NEGATIVE); KETONES,URINE NEGATIVE (NEGATIVE); LEUKOCYTE ESTERASE,URINE NEGATIVE (NEGATIVE); NITRITE,URINE NEGATIVE (NEGATIVE); PROTEIN,URINE NEGATIVE (NEGATIVE); URINE SPECIFIC GRAVITY 1.011; UROBILINOGEN,URINE NEGATIVE mg/dL (<2.0)
--- NOTE | 2019-10-11 08:39 | EKG REPORT ---
SEVERITY:- NORMAL ECG - SINUS RHYTHM : Confirmed by: Haley Juarez MD 11-Oct-2019 08:38:26
[2019-10-11 11:42] VITALS: BP 115/79
== END 2019-10-11 11:20 | disposition home or self-care (01) ==
LOC: ER 01:06
DX: R53.1 Weakness (principal); F03.90 Unspecified dementia, unspecified severity, without behavioral disturbance, psychotic disturbance, mood disturbance, and anxiety; M25.552 Pain in left hip; W19.XXXA Unspecified fall, initial encounter; Z87.891 Personal history of nicotine dependence; I10 Essential (primary) hypertension; E11.9 Type 2 diabetes mellitus without complications
CPT/HCPCS: 93005; 99285; 96360; 36415; 85025; 80053; 81001; 84484; 71045; 93010; J7030

== ENCOUNTER 2019-11-08 08:45 | Emergency (ER) | payer OTHER, MEDICARE ==
[2019-11-08 09:42] LABS: ABSOLUTE LYMPHOCYTES (AUTO) 0.5 10^3/uL (0.5-4.7); ABSOLUTE MONOCYTES (AUTO) 0.5 10^3/uL (0.1-1.4); ABSOLUTE NEUT (AUTO) 5.4 10^3/uL (1.7-8.2); BASOPHILS % (AUTO) 0.4 % (0-2); EOSINOPHILS % (AUTO) 0.6 % (0-6); HEMATOCRIT 34.1 % (37.9-51.0); HEMOGLOBIN 11.1 g/dL (13.5-17.0); LYMPHOCYTES % (AUTO) 7.3 % (13-45); MEAN CORPUSCULAR HEMOGLOBIN 28.4 pg (27.0-33.4); MEAN CORPUSCULAR HGB CONC 32.5 g/dL (32.0-36.0); MEAN CORPUSCULAR VOLUME 87 fl (80-97); MONOCYTES % (AUTO) 7.3 % (3-13); PLATELET COUNT 168 10^3/uL (150-450); RED BLOOD COUNT 3.91 10^6/uL (4.35-5.55); RED CELL DISTRIBUTION WIDTH 14.7 % (11.5-14.0); SEGMENTED NEUTROPHILS % (AUTO) 84.4 % (42-78); TOTAL CELLS COUNTED % (AUTO) 100 %; WHITE BLOOD COUNT 6.4 10^3/uL (4.0-10.5)
[2019-11-08 09:53] LABS: ALKALINE PHOSPHATASE 118 U/L (38-126); ANION GAP 5 (5-19); ASPARTATE AMINO TRANSFERASE 41 U/L (17-59); BILIRUBIN,DIRECT 0.3 mg/dL (0.0-0.4); BILIRUBIN,TOTAL 0.6 mg/dL (0.2-1.3); BLOOD UREA NITROGEN 17 mg/dL (7-20); CALCIUM 8.1 mg/dL (8.4-10.2); CARBON DIOXIDE 29 mmol/L (22-30); CHLORIDE 104 mmol/L (98-107); GLUCOSE 95 mg/dL (75-110); POTASSIUM 3.5 mmol/L (3.6-5.0); TOTAL PROTEIN 5.8 g/dL (6.3-8.2)
[2019-11-08 10:15] LABS: INTERNATIONAL RATION (INR) 0.93; PROTHROMBIN TIME 12.7 SEC (11.4-15.4)
[2019-11-08 10:20] LABS: APPEARANCE,URINE CLEAR; BILIRUBIN,URINE NEGATIVE (NEGATIVE); COLOR,URINE YELLOW; GLUCOSE, URINE NEGATIVE (NEGATIVE); KETONES,URINE NEGATIVE (NEGATIVE); LEUKOCYTE ESTERASE,URINE NEGATIVE (NEGATIVE); NITRITE,URINE NEGATIVE (NEGATIVE); PROTEIN,URINE NEGATIVE (NEGATIVE); URINE SPECIFIC GRAVITY 1.014; UROBILINOGEN,URINE NEGATIVE mg/dL (<2.0)
--- NOTE | 2019-11-08 10:26 | ER Document Report ---
ED General - General Chief Complaint: Back Pain Stated Complaint: RIB PAIN Time Seen by Provider: 11/08/19 09:08 TRAVEL OUTSIDE OF THE [place] IN LAST 30 DAYS: No - HPI Notes: Chief complaint: Arthritic pain History of present illness: 79-year-old male seen for evaluation of persistent/worsening generalized arthritic pain. This gentleman is followed by the PA. He was fully evaluated here about 3-1/2 weeks ago by another provider in emergency department after he had a fall at home. His evaluation at that time included urinalysis, CBC, comprehensive metabolic profile, EKG and chest x- ray. Only significant finding on his studies was a mild anemia which is consistent with his baseline. He was noted to have severe generalized osteoarthritis. Attempt was made to coordinate home health nursing visits by discharge planning team but according to patient this still has not occurred. He is semi-ambulatory with a walker. He apparently has mild dementia and was noted to be an unreliable historian at time of prior evaluation. He denies any other new symptoms at this time. He was transported here via EMS. reported that he is intermittently having problems with urinary incontinence. No fevers been reported. I reviewed prior visit notes in detail. We note that he has a history of generalized osteoarthritis which is severe, diabetes mellitus type 2 and hypertension. - Related Data Allergies/Adverse Reactions: No Known Allergies Allergy (Verified 02/28/18 08:46) Past Medical History - General Information source: Patient, Relative, [facility] - Social History Smoking Status: Never Smoker Frequency of alcohol use: None Drug Abuse: None Lives with: Family Family History: Reviewed & Not Pertinent Patient has homicidal ideation: No - Past Medical History Cardiac Medical History: Reports: Hx Hypercholesterolemia, Hx Hypertension Denies: Hx Atrial Fibrillation, Hx Congestive Heart Failure, Hx Coronary Artery Disease, Hx Heart Attack, Hx Peripheral Vascular Disease, Hx Heart Murmur Pulmonary Medical History: Denies: Hx Asthma, Hx Pneumonia, Hx Sleep Apnea Neurological Medical History: Denies: Hx Cerebrovascular Accident, Hx Seizures, Hx Parkinson's Disease Endocrine Medical History: Reports: Hx Diabetes Mellitus Type 2. Denies: Hx Graves' Disease, Hx Hyperthyroidism, Hx Hypothyroidism Renal/ Medical History: Reports: Hx Benign Prostatic Hyperplasia. Denies: Hx End Stage Renal Disease, Hx Kidney Stones, Hx Peritoneal Dialysis GI Medical History: Denies: Hx Crohn's Disease, Hx Gastroesophageal Reflux Disease, Hx Hiatal Hernia, Hx Irritable Bowel, Hx Liver Failure, Hx Pancreatitis, Hx Ulcer Musculoskeletal Medical History: Reports Hx Arthritis - knees, Denies Hx Fibromyalgia, Denies Hx Multiple Sclerosis, Denies Hx Muscular Dystrophy, Denies Hx Systemic Lupus Erythematosus Psychiatric Medical History: Reports: Hx Depression, Hx Post Traumatic Stress Disorder Denies: Hx Bipolar Disorder, Hx Dementia Traumatic Medical History: Denies: Hx Fractures Past Surgical History: Reports: Hx Orthopedic Surgery - Right shoulder replacement, right knee replacement. Denies: Hx Appendectomy, Hx Bowel Surgery, Hx Cholecystectomy, Hx Colostomy, Hx Coronary Artery Bypass Graft, Hx Gastric Bypass Surgery, Hx Herniorrhaphy, Hx Pacemaker, Hx Tonsillectomy Review of Systems - Review of Systems Notes: Constitutional: Negative for fever. HENT: Negative for sore throat. Eyes: Negative for visual changes. Cardiovascular: Negative for chest pain. Respiratory: Negative for shortness of breath. Gastrointestinal: Negative for abdominal pain, vomiting or diarrhea. Genitourinary: Negative for dysuria. As per HPI. Musculoskeletal: As per history of present illness. Musculoskeletal his discomfort is worse and mid and lower back and both knees. Skin: Negative for rash. Neurological: Negative for headaches, weakness or numbness. 10 point ROS negative except as marked above and in HPI. Physical Exam - Vital signs Vitals: Resp Pulse Ox 9 L 100 11/08/19 09:06 11/08/19 09:06 Interpretation: Hypertensive - Notes Notes: GENERAL: Elderly male appearing in no acute distress. SKIN: Good turgor no rashes. HEAD: Normocephalic atraumatic. EYES: Bilateral arcus senilis. PERRLA. EOMI. Conjunctivae and sclerae clear. EARS: CANALS AND TMS CLEAR. NOSE: CLEAR. MOUTH: Moist mucosa. Good dentition. No stridor or edema. No drooling. NECK: Supple. No masses or thyromegaly. No adenopathy. Carotids 2+ without bruits. No JVD. BACK: Symmetrical with mild diffuse musculoskeletal tenderness. CHEST: Respirations unlabored. Breath sounds clear and symmetrical. HEART: Regular rhythm. No murmur gallop or rub. ABDOMEN: Soft nontender without masses, organomegaly or rebound. Bowel sounds normally active. No bruits. GENITALIA: Deferred. EXTREMITIES: Moderate degenerative changes of intra-phalangeal joints of both hands. Surgical scar of both knees anteriorly. Range of motion of both knees is significantly diminished with prominent crepitus. No redness, warmth or effusions of the knees. No edema. No calf tenderness. Cap refill less than 1.5 seconds. Dorsalis pedis and posterior tibial pulses 3+ and symmetrical. NEUROLOGICAL: GCS 14. Patient is oriented to person and place but incorrectly states the year, month and day. Alert and oriented x3. Fluent speech. Cranial nerves II through XII intact. Sensorimotor and cerebellar normal. Normal tone. PSYCHIATRIC: Mild confabulation. Course - Re-evaluation Re-evalutation: This is an elderly man with mild dementia who has severe generalized osteoarthritis and has been falling repeatedly at home. His is subsequently arrived here and of gotten additional information from her. She basically is reached a point where she is finding it very difficult to care for him at home. He is on a waiting list with the PA to go to a penitentiary facility. His work-up here today has been essentially negative. There was some concern expressed about potential urinary incontinence but on further evaluation of he has a normal urinalysis and no fever. It appears that his incontinence problems are largely due to his mechanical inability to get to the bathroom. Case management/renal social worker has been involved in evaluation and disposition today. Is agreed that this man will go home at this time awaiting retirement placement with the PA. understands that they can return here as necessary for any interval problems situations as necessary. Findings, clinical impression and plan of treatment have been discussed with patient/family. Understanding of current findings and recommendations has been acknowledged by them and there is agreement regarding disposition and follow-up. 11/08/19 15:47 - Vital Signs Vital signs: Temp Pulse Resp BP Pulse Ox 98.6 F 12 147/73 H 98 11/08/19 09:10 11/08/19 15:06 11/08/19 15:06 11/08/19 14:00 - Laboratory Result Diagrams: 11/08/19 09:07 11/08/19 09:07 Laboratory results interpreted by me: 11/08/19 11/08/19 09:07 09:07 RBC 3.91 L Hgb 11.1 L Hct 34.1 L RDW 14.7 H Lymph % (Auto) 7.3 L Seg Neutrophils % 84.4 H Potassium 3.5 L Calcium 8.1 L Total Protein 5.8 L Albumin 3.0 L Discharge - Discharge Clinical Impression: Generalized osteoarthritis Dementia Qualifiers: Dementia type: unspecified type Dementia behavioral disturbance: without behavioral disturbance Qualified Code(s): F03.90 - Unspecified dementia without behavioral disturbance Condition: Stable Disposition: HOME, SELF-CARE Additional Instructions: Continue current medications. Return here as needed. [facility].
--- NOTE | 2019-11-08 11:02 | RADIOLOGY REPORT (SQ) ---
EXAM DESCRIPTION: CT HEAD WITHOUT IMAGES COMPLETED DATE/TIME: 11/08/2019 10:54 am REASON FOR STUDY: confusion and urinary incontinence COMPARISON: 03/09/2018 TECHNIQUE: Axial images acquired through the brain without intravenous contrast. Images reviewed wi th bone, brain and subdural windows. Additional sagittal and coronal reconstructions were generated. Images stored on PACS. All CT scanners at this facility use dose modulation, iterative reconstruction, and/or weight based d osing when appropriate to reduce radiation dose to as low as reasonably achievable (ALARA). [facility]: Dose Right [facility]: CareDose [facility]: Dose Right [facility]: Teradose 4D [facility]: [email or web address] RADIATION DOSE: CT Rad equipment meets quality standard of care and radiation dose reduction techniq ues were employed. CTDIvol: 48.6 mGy. DLP: 954 mGy-cm.mGy. LIMITATIONS: None. FINDINGS: VENTRICLES: Prominent. CEREBRUM: No masses. No hemorrhage. No midline shift. Areas of low density in the white matter mos t likely due to chronic micro-vascular ischemic change. No evidence for acute infarction. Asymmetri c physiologic calcification in the left basal ganglia unchanged from 2018. CEREBELLUM: No masses. No hemorrhage. No alteration of density. No evidence for acute infarction. EXTRAAXIAL SPACES: Age-related involutional change. No fluid collections. No masses. ORBITS AND GLOBE: No intra- or extraconal masses. Normal contour of globe without masses. CALVARIUM: No fracture. PARANASAL SINUSES: No fluid or mucosal thickening. SOFT TISSUES: No mass or hematoma. OTHER: No other significant finding. IMPRESSION: CHRONIC CHANGES OF ATROPHY AND MICROVASCULAR ISCHEMIA. NO ACUTE PROCESS. EVIDENCE OF ACUTE STROKE: NO. TECHNICAL DOCUMENTATION: JOB ID: [id number] Quality ID # [id number]: Final reports with documentation of one or more dose reduction techniques (e.g., Au tomated exposure control, adjustment of the mA and/or kV according to patient size, use of iterative reconstruction technique) 2010 [employer]- All Rights Reserved Reading location - IP/workstation name: [email or web address]
[2019-11-08] MEDS ORDERED: TRAMADOL HCL 50 MG TABLET PO ONE (12:00)
--- NOTE | 2019-11-08 14:41 | RADIOLOGY REPORT (SQ) ---
EXAM DESCRIPTION: PELVIS AP IMAGES COMPLETED DATE/TIME: 11/08/2019 2:30 pm REASON FOR STUDY: Fall, pelvic pain COMPARISON: None. NUMBER OF VIEWS: One view TECHNIQUE: AP Pelvis LIMITATIONS: None. FINDINGS: MINERALIZATION: Osteopenia. HIPS: No acute fracture or dislocation. No worrisome bone lesions. PELVIS AND SACRUM: No acute fracture or dislocation. No worrisome bone lesions. PUBIS AND ISCHIUM: No acute fracture. LOWER LUMBAR SPINE: No significant findings as visualized. SOFT TISSUES: No findings. OTHER: No other significant finding. IMPRESSION: Osteopenia. No displaced fractures. COMMENT: Pelvic fractures are often occult on plain radiographs. If strong clinical suspicion for f racture, recommend CT or MR. TECHNICAL DOCUMENTATION: JOB ID: [id number] 2010 [email or web address]- All Rights Reserved Reading location - IP/workstation name: [email or web address]
[2019-11-08 17:03] VITALS: BP 136/74
== END 2019-11-08 17:19 | disposition home or self-care (01) ==
LOC: ER 08:45
DX: M15.9 Polyosteoarthritis, unspecified (principal); F03.90 Unspecified dementia, unspecified severity, without behavioral disturbance, psychotic disturbance, mood disturbance, and anxiety; M85.80 Other specified disorders of bone density and structure, unspecified site; E11.9 Type 2 diabetes mellitus without complications; I10 Essential (primary) hypertension; M54.5 Low back pain; M25.561 Pain in right knee; M25.562 Pain in left knee; R29.6 Repeated falls
CPT/HCPCS: 36415; 70450; 72170; 80053; 81001; 85025; 85610; 99285

== ENCOUNTER 2019-11-23 17:33 | Inpatient (IN) | payer OTHER, MEDICARE ==
[2019-11-23] MEDS ORDERED: NORMAL SALINE 1000 ML 1,000 ML IV ONE ×4 (17:54→21:09)
[2019-11-23] MEDS ORDERED: PIPERACILLIN/TAZOBACTAM 3.375 GM VIAL IV ONE (18:04)
--- NOTE | 2019-11-23 18:16 | RADIOLOGY REPORT (SQ) ---
EXAM DESCRIPTION: CHEST SINGLE VIEW IMAGES COMPLETED DATE/TIME: 11/23/2019 6:03 pm REASON FOR STUDY: AMS COMPARISON: 10/11/2019 EXAM PARAMETERS: NUMBER OF VIEWS: One view. TECHNIQUE: Single frontal radiographic view of the chest acquired. RADIATION DOSE: NA LIMITATIONS: None. FINDINGS: LUNGS AND PLEURA: There is slight haziness in the retrocardiac area on the left. The medi al aspect of the left hemidiaphragm remains well-defined, however. MEDIASTINUM AND HILAR STRUCTURES: No masses. Contour normal. HEART AND VASCULAR STRUCTURES: Heart normal in size. Normal vasculature. BONES: No acute findings. HARDWARE: None in the chest. OTHER: No other significant finding. IMPRESSION: Cannot entirely exclude a limited left lower lobe pneumonia. TECHNICAL DOCUMENTATION: JOB ID: [id number] 2010 [employer]- All Rights Reserved Reading location - IP/workstation name: [email or web address]
[2019-11-23 18:24] LABS: APPEARANCE,URINE SLIGHTLY-CLOUDY; BILIRUBIN,URINE NEGATIVE (NEGATIVE); COLOR,URINE AMBER; GLUCOSE, URINE NEGATIVE (NEGATIVE); HEMATOCRIT 27.7 % (37.9-51.0); HEMOGLOBIN 9.4 g/dL (13.5-17.0); KETONES,URINE NEGATIVE (NEGATIVE); LEUKOCYTE ESTERASE,URINE NEGATIVE (NEGATIVE); MEAN CORPUSCULAR HEMOGLOBIN 29.9 pg (27.0-33.4); MEAN CORPUSCULAR HGB CONC 33.8 g/dL (32.0-36.0); MEAN CORPUSCULAR VOLUME 88 fl (80-97); NITRITE,URINE NEGATIVE (NEGATIVE); PROTEIN,URINE 30 mg/dL (NEGATIVE); RED BLOOD COUNT 3.13 10^6/uL (4.35-5.55); RED CELL DISTRIBUTION WIDTH 15.4 % (11.5-14.0); URINE SPECIFIC GRAVITY 1.023; WHITE BLOOD COUNT 4.3 10^3/uL (4.0-10.5)
--- NOTE | 2019-11-23 18:29 | ER Document Report ---
ED General - General Chief Complaint: Unresponsive Stated Complaint: UNRESPONSIVE Time Seen by Provider: 11/23/19 17:43 Cannot obtain history due to: Unstable vital signs, Altered mental status TRAVEL OUTSIDE OF THE [place] IN LAST 30 DAYS: No - HPI Notes: Patient is a 79-year-old male with a past medical history of dementia who presents via EMS for unresponsiveness. He is unable to provide a history due to altered mental status. Per EMS, stated that he has had dark stools for several days. When they arrived, he was unresponsive and bradycardic. They gave him epi as well as whole blood. Patient became more responsive per EMS. Currently, patient is responsive to painful stimuli and voice. Further history is unable to be obtained. Patient had a negative Hemoccult. - Related Data Allergies/Adverse Reactions: No Known Allergies Allergy (Verified 02/28/18 08:46) Home Medications: Amlodipine, ASA, Atorvastatin, Carbatelol, Donepezil, Lisinopril, Flomax, Tylenol Past Medical History - General Cannot obtain history due to: Unstable vital signs, Altered mental status - Social History Smoking Status: Unknown if Ever Smoked Family History: Reviewed & Not Pertinent - Past Medical History Cardiac Medical History: Reports: Hx Hypercholesterolemia, Hx Hypertension Denies: Hx Atrial Fibrillation, Hx Congestive Heart Failure, Hx Coronary Artery Disease, Hx Heart Attack, Hx Peripheral Vascular Disease, Hx Heart Murmur Pulmonary Medical History: Denies: Hx Asthma, Hx Pneumonia, Hx Sleep Apnea Neurological Medical History: Denies: Hx Cerebrovascular Accident, Hx Seizures, Hx Parkinson's Disease Endocrine Medical History: Reports: Hx Diabetes Mellitus Type 2. Denies: Hx Graves' Disease, Hx Hyperthyroidism, Hx Hypothyroidism Renal/ Medical History: Reports: Hx Benign Prostatic Hyperplasia. Denies: Hx End Stage Renal Disease, Hx Kidney Stones, Hx Peritoneal Dialysis GI Medical History: Denies: Hx Crohn's Disease, Hx Gastroesophageal Reflux Disease, Hx Hiatal Hernia, Hx Irritable Bowel, Hx Liver Failure, Hx Pancreatitis, Hx Ulcer Musculoskeletal Medical History: Reports Hx Arthritis - knees, Denies Hx Fibromyalgia, Denies Hx Multiple Sclerosis, Denies Hx Muscular Dystrophy, Denies Hx Systemic Lupus Erythematosus Psychiatric Medical History: Reports: Hx Depression, Hx Post Traumatic Stress Disorder Denies: Hx Bipolar Disorder, Hx Dementia Traumatic Medical History: Denies: Hx Fractures Past Surgical History: Reports: Hx Orthopedic Surgery - Right shoulder replacement, right knee replacement. Denies: Hx Appendectomy, Hx Bowel Surgery, Hx Cholecystectomy, Hx Colostomy, Hx Coronary Artery Bypass Graft, Hx Gastric Bypass Surgery, Hx Herniorrhaphy, Hx Pacemaker, Hx Tonsillectomy Review of Systems - Review of Systems -: Yes ROS unobtainable due to patient's medical condition Physical Exam - Vital signs Vitals: Resp 18 11/23/19 17:37 Interpretation: Hypotensive Notes: VITAL SIGNS: Systolic blood pressure low normal on arrival, hypothermic. GENERAL: Acute distress HEAD: Normal with no signs of head trauma. EARS: Hearing grossly intact. NOSE: Normal. NECK: Supple, no lymphadenopathy, No adenopathy, no JVD. CHEST: Diminished breath sounds bilaterally. No wheezes, rales, or rhonchi. CARDIAC: Regular rate and rhythm. S1 and S2, without murmurs, gallops, or ru bs. ABDOMEN: Normal and soft with no tenderness, no masses or pulsatile masses. GASTROINTESTINAL: Bowel sounds normal GENITOURINARY: Normal, No tenderness LYMPATHTIC: No lymphadenopathy noted. NEUROLOGICAL: Responsive to voice and painful stimuli Extremities: Left lower leg shortened and externally rotated. Slight edema to left lower leg. PSYCHIATRIC: Unable to assess SKIN: Areas of healing abrasions on lower legs. Course - Re-evaluation Re-evalutation: 11/23/19 19:38 Patient's called and spoke to the nursing staff. She stated that he has been laying in bed for several days. He has not taken any of his medication. He has been slow to respond to her as well. He was initially on nasal cannula and doing well with his oxygen saturations. He was responsive to voice and painful stimuli. He was normotensive upon arrival to the ED. He was noted to be hypothermic and had dry mucous membranes. Patient was started on sepsis fluids and broad spectrum antibiotics. After fluids, patient was hypotensive to the 80s. Decision was made to place a central line. This was an emergent procedure and and consent was unable to be obtained. Patient was started on peripheral levophed while the central line was placed. It was noted that patient began having desaturations. He was placed on nonrebreather. BiPAP was initially called but patient's O2 saturations improved on nonrebreather. We will await an ABG. We will continue to monitor. I will discuss with the ICU staff as patient has rhabdomyolysis, acute kidney injury, and sepsis. X-ray does show a possible pneumonia. He was sent for CT scans after stabilization. He appears to have a left femur fracture and pneumonia. I am unsure of any trauma history. We will obtain x- rays as well as a cervical CT to rule out other injury. He is continuing to be more responsive to voice. His ABG was within normal limits. I also discussed with Ortho about the femur fracture. Patient began to have hypotension again, vasopressin was added. Patient now on nasal cannula again. 11/24/19 01:24 - Vital Signs Vital signs: Temp Pulse Resp BP Pulse Ox 19 108/55 L 98 11/24/19 00:10 11/24/19 00:10 11/24/19 00:10 - Laboratory Result Diagrams: 11/23/19 17:41 11/23/19 17:41 Laboratory results interpreted by me: 11/23/19 11/23/19 11/23/19 17:41 17:41 17:41 RBC 3.13 L Hgb 9.4 L Hct 27.7 L RDW 15.4 H Plt Count 39 L Seg Neuts % (Manual) 79 H Band Neutrophils % 11 H Lymphocytes % (Manual) 3 L Metamyelocytes % 3 H Abs Lymphs (Manual) 0.1 L PT 17.4 H ABG pO2 ABG HCO3 Potassium 3.2 L Chloride 108 H BUN 78 H Creatinine 3.39 H Est GFR ( Amer) 21 L Est GFR (MDRD) Non-Af 18 L POC Glucose Lactic Acid Calcium 7.5 L Magnesium Total Bilirubin 1.4 H Direct Bilirubin 0.8 H AST 408 H ALT 115 H Creatine Kinase 4086 H Total Protein 4.1 L Albumin 1.9 L Urine Protein Urine Urobilinogen 11/23/19 11/23/19 11/23/19 17:41 17:41 17:41 RBC Hgb Hct RDW Plt Count Seg Neuts % (Manual) Band Neutrophils % Lymphocytes % (Manual) Metamyelocytes % Abs Lymphs (Manual) PT ABG pO2 ABG HCO3 Potassium Chloride BUN Creatinine Est GFR ( Amer) Est GFR (MDRD) Non-Af POC Glucose Lactic Acid 3.5 H Calcium Magnesium 2.6 H Total Bilirubin Direct Bilirubin AST ALT Creatine Kinase Total Protein Albumin Urine Protein 30 H Urine Urobilinogen 4.0 H 11/23/19 11/23/19 17:46 19:15 RBC Hgb Hct RDW Plt Count Seg Neuts % (Manual) Band Neutrophils % Lymphocytes % (Manual) Metamyelocytes % Abs Lymphs (Manual) PT ABG pO2 79.4 L ABG HCO3 24.3 H Potassium Chloride BUN Creatinine Est GFR ( Amer) Est GFR (MDRD) Non-Af POC Glucose 111 H Lactic Acid Calcium Magnesium Total Bilirubin Direct Bilirubin AST ALT Creatine Kinase Total Protein Albumin Urine Protein Urine Urobilinogen - Diagnostic Test Radiology reviewed: Image reviewed, Reports reviewed - EKG Interpretation by Me EKG shows normal: Sinus rhythm Rate: Normal When compared to previous EKG there are: Previous EKG unavailable Additional EKG results interpreted by me: 11/24/19 01:26 Sinus rhythm at a rate of 76. QTc 518. No acute ST changes. No previous EKG available for comparison. Procedures - Central Line Right Femoral Time completed: 08:00 Consent obtained: No - Emergent situation Central line pre-insertion: Sterile PPE donned, Chloraprep applied, Sterile drapes applied Central line lumen type: Triple Ultrasound guided: Yes Line secured with sutures: Yes Central line post-insertion: Blood return from lumens, Biopatch applied, Sutured, Sterile dressing applied Number of attempts: 1 Complications: No Notes: 11/23/19 20:30 Consent was not able to be obtained as this was an emergent situation and patient did not have any family with him Critical Care Note - Critical Care Note Total time excluding time spent on procedures (mins): 60 Discharge - Discharge Clinical Impression: Sepsis associated hypotension, Acute kidney injury, Septic shock, Elevated troponin, Elevated liver function tests Rhabdomyolysis Qualifiers: Rhabdomyolysis type: non-traumatic Qualified Code(s): M62.82 - Rhabdomyolysis Pneumonia Qualifiers: Pneumonia type: due to unspecified organism Laterality: left Lung location: lower lobe of lung Qualified Code(s): J18.9 - Pneumonia, unspecified organism Femur fracture, left Qualifiers: Encounter type: initial encounter Femur location: intertrochanteric Fracture type: closed Fracture alignment: nondisplaced Qualified Code(s): S72.145A - Nondisplaced intertrochanteric fracture of left femur, initial encounter for closed fracture Condition: Critical Disposition: ADMITTED INPATIENT Admitting Provider: document review attorney Unit Admitted: ICU
[2019-11-23 18:31] LABS: PROTHROMBIN TIME 17.4 SEC (11.4-15.4)
[2019-11-23 18:36] LABS: ALBUMIN 1.9 g/dL (3.5-5.0); ALKALINE PHOSPHATASE 71 U/L (38-126); ANION GAP 13 (5-19); ASPARTATE AMINO TRANSFERASE 408 U/L (17-59); BILIRUBIN,DIRECT 0.8 mg/dL (0.0-0.4); BILIRUBIN,TOTAL 1.4 mg/dL (0.2-1.3); BLOOD UREA NITROGEN 78 mg/dL (7-20); CALCIUM 7.5 mg/dL (8.4-10.2); CARBON DIOXIDE 24 mmol/L (22-30); CHLORIDE 108 mmol/L (98-107); GLUCOSE 92 mg/dL (75-110); POTASSIUM 3.2 mmol/L (3.6-5.0); TOTAL PROTEIN 4.1 g/dL (6.3-8.2)
[2019-11-23] MEDS ORDERED: IPRATROPIUM/ALBUTEROL 0.5-2.5 MG/3 ML AMPUL NEB ONE ×2 (18:36→18:40)
[2019-11-23] MEDS ORDERED: NOREPINEPHRINE BITARTRATE INJ/PF 4 MG/4 ML SDV IV ONE (18:39)
[2019-11-23] MEDS: DEXTROSE 5%-WATER 250 ML with NOREPINEPHRINE BITARTRATE 4 MG IV PRN ×2 (18:44)
[2019-11-23 18:46] LABS: PLATELET COUNT 39 10^3/uL (150-450)
[2019-11-23 18:52] LABS: CREATINE KINASE 4086 U/L (55-170)
[2019-11-23 18:53] LABS: ABSOLUTE LYMPHOCYTES# (MANUAL) 0.1 10^3/uL (0.5-4.7); ABSOLUTE MONOCYTES # (MANUAL) 0.2 10^3/uL (0.1-1.4); BASOPHILS % (MANUAL) 0 % (0-2); EOSINOPHILS % (MANUAL) 0 % (0-6); LYMPHOCYTES % (MANUAL) 3 % (13-45); MONOCYTES % (MANUAL) 4 % (3-13); SEGMENTED NEUTROPHILS % (MAN) 79 % (42-78); TOTAL CELLS COUNTED 100
[2019-11-23 18:57] LABS: ANISOCYTOSIS SLIGHT; BURR CELLS 1+; OVALOCYTES SLIGHT; PLATELET COMMENT DECREASED; POIKILOCYTOSIS 1+; TOXIC VACUOLATION PRESENT
[2019-11-23 18:58] LABS: PLATELET LARGE PRESENT
[2019-11-23 18:59] LABS: BAND NEUTROPHILS % (MANUAL) 11 % (3-5); METAMYELOCYTES % (MANUAL) 3 % (0-1)
[2019-11-23 19:05] LABS: SCHISTOCYTES SLIGHT
[2019-11-23 19:07] LABS: TEAR DROP CELLS SLIGHT
[2019-11-23 20:10] LABS: ARTERIAL BLOOD BASE EXCESS 0.1 mmol/L; ARTERIAL BLOOD FIO2 5L; ARTERIAL BLOOD H2CO3 1.13 mmol/L (1.05-1.35); ARTERIAL BLOOD HCO3 24.3 mmol/L (20-24); ARTERIAL BLOOD O2 SATURATION 96.1 % (94-98); ARTERIAL BLOOD PCO2 37.7 mmHg (35-45); ARTERIAL BLOOD PH 7.43 (7.35-7.45); ARTERIAL BLOOD PO2 79.4 mmHg (80-100); ARTERIAL BLOOD TOTAL CO2 25.5 mmol/L (23-27)
--- NOTE | 2019-11-23 21:15 | RADIOLOGY REPORT (SQ) ---
INDICATION: AMS. COMPARISON: November 08, 2019 CORRELATION: None TECHNIQUE: Noncontrast spiral axial CT images were obtained from the skull base to vertex. This exam was performed according to our departmental dose-optimization program, which includes automated exposure control, adjustment of the mA and/or kV according to patient size and/or use of iterative reconstruction techniques. FINDINGS: There is no evidence of acute intracranial hemorrhage, midline shift, mass effect or mass lesion. Rubio-white differentiation is normal. There is no evidence of acute large territory infarct. Age-related involutional changes are identified. Presumed old small vessel ischemic changes are seen predominantly in a periventricular distribution. Vascular calcification. The visualized paranasal sinuses are grossly clear. The orbits and eyeballs are unremarkable. The mastoid air cells are clear. Skull base and calvarium appear intact. IMPRESSION: Imaging is degraded by patient motion, with resultant artifact. The best possible images were obtained. No acute intracranial process. Age-related involutional changes are identified. Presumed old small vessel ischemic changes are seen predominantly in a periventricular distribution.. The cause of the patient's metal status change is not identified on this examination.
--- NOTE | 2019-11-23 21:24 | RADIOLOGY REPORT (SQ) ---
CLINICAL INDICATION: sepsis, evaluate pneumonia. . TECHNIQUE: Noncontrast spiral axial CT images obtained through chest abdomen and pelvis with multiplanar reconstructions. This exam was performed according to our departmental dose-optimization program, which includes automated exposure control, adjustment of the mA and/or kV according to patient size and/or use of iterative reconstruction techniques. COMPARISON: None. CORRELATION: None. FINDINGS: Stranding within all of the imaged fat degrading image quality. Artifact from the patient's arms. Imaging is degraded by patient motion, with resultant artifact. The best possible images were obtained. Chest: The heart is enlarged with coronary calcification. Tiny pericardial effusion. No bulky mediastinal adenopathy. The lungs demonstrate bibasilar airspace disease with tiny adjacent effusions. No pneumothorax. Abdomen: The liver is of normal size contour and attenuation. The gallbladder is distended with either sludge or cholelithiasis. The pancreas is poorly seen. The spleen is unremarkable. The adrenals are poorly seen. The kidneys appear grossly normal without evidence of urolithiasis or hydronephrosis. Dominant cyst left kidney 6.5 cm There is no evidence of free air. No free fluid. No bulky adenopathy. Abdominal aorta is nonaneurysmal. Vascular calcification Pelvis: The bowel is nonobstructed. The bowel is unopacified with oral contrast. Pelvic contents are unremarkable. The appendix is not seen. Significant hard stool within the colon distally. Pope catheter within a decompressed urinary bladder. Visualized bones demonstrate acute intertrochanteric fracture of the left femur. Osteoporosis. Osteoarthritis.. IMPRESSION: Bibasilar airspace disease and adjacent effusions. Pneumonia could have this appearance. Given bibasilar distribution, aspiration is a consideration. No high-grade bowel obstruction. Moderate hard stool within the colon. Acute intertrochanteric fracture left femur. Study is degraded by artifact from the patient's arms and motion. Additionally given stranding within all the imaged fat, tissue planes are difficult to discern..
[2019-11-23] MEDS ORDERED: DOXYCYCLINE HYCLATE INJ 100 MG VIAL IV ONE (22:34)
[2019-11-23] MEDS ORDERED: DEXTROSE 5%-WATER 250 ML with VASOPRESSIN 100 UNIT IV PRN ×2 (22:44)
[2019-11-23] MEDS ORDERED: VASOPRESSIN INJ 20 UNIT/1 ML VIAL ONE (23:22)
[2019-11-23] MEDS ORDERED: DEXTROSE 40% GEL 15 GM TUBE PO PRN ×2 (23:25)
[2019-11-23] MEDS ORDERED: GLUCAGON,HUMAN RECOMB 1 MG INJ SUBCUT PRN (23:25)
[2019-11-23] MEDS ORDERED: NORMAL SALINE 1000 ML 1,000 ML IV PRN (23:25)
[2019-11-23] MEDS ORDERED: IPRATROPIUM BROMIDE 0.02% NEB 0.5 MG/2.5 ML AMPUL NEB PRN (23:25)
[2019-11-23] MEDS ORDERED: ACETAMINOPHEN 325 MG TABLET PO PRN (23:25)
[2019-11-23] MEDS ORDERED: DEXTROSE 50%-WATER 25 GM/50 ML DISP.SYRIN IV PRN ×2 (23:25)
--- NOTE | 2019-11-23 23:33 | RADIOLOGY REPORT (SQ) ---
CT CERVICAL SPINE WITHOUT IV CONTRAST HISTORY: Neck pain. COMPARISON: 03/09/2018. TECHNIQUE: CT scan of the cervical spine was performed without IV contrast. This exam was performed according to our departmental dose-optimization program, which includes automated exposure control, adjustment of the mA and/or kV according to patient size and/or use of iterative reconstruction technique. FINDINGS: No acute cervical fracture or prevertebral soft tissue swelling is seen. There is straightening of the normal cervical lordosis, which may be due to cervical collar, muscle spasm, or patient positioning. There is multilevel degenerative disc disease as well as facet DJD throughout the cervical spine. The spinal canal is poorly visualized due to streak artifact. IMPRESSION: No acute fracture or subluxation of the cervical spine.
--- NOTE | 2019-11-23 23:59 | RADIOLOGY REPORT (SQ) ---
EXAM DESCRIPTION: XR PELVIS 2 VIEWS COMPLETED DATE/TME: 11/23/2019 22:43 CLINICAL HISTORY: 79 years, Male, femur fracture COMPARISON: None. NUMBER OF VIEWS: TECHNIQUE: LIMITATIONS: None. FINDINGS: There is an intertrochanteric fracture of the left hip with mild displacement. This fracture is much better visualized on the patient's abdomen and pelvis CT scan performed today. There are mild degenerative changes involving the hip joints bilaterally. There are degenerative changes in the lower lumbar spine. IMPRESSION: Intertrochanteric fracture of the left hip. copyright 2010 [employer] [employer]- All Rights Reserved
--- NOTE | 2019-11-24 00:01 | RADIOLOGY REPORT (SQ) ---
EXAM DESCRIPTION: XR left FEMUR 2 VIEWS COMPLETED DATE/TME: 11/23/2019 22:43 CLINICAL HISTORY: 79 years, Male, femur fracture COMPARISON: None. NUMBER OF VIEWS: TECHNIQUE: LIMITATIONS: None. FINDINGS: There is an intertrochanteric fracture of the left hip. This fracture was much better visualized on the patient's abdomen and pelvis CT scan performed today. There are severe degenerative changes involving the knee joint. There is atherosclerotic arterial calcification. IMPRESSION: Intertrochanteric fracture. copyright 2010 [employer]- All Rights Reserved
[2019-11-24] MEDS ORDERED: FAMOTIDINE INJ/PF 20 MG/2 ML SDV IV ONE (00:30)
[2019-11-24] MEDS ORDERED: CEFEPIME 2 GM/D5W RTU 2 GM/50 ML RTUPB IV ONE (00:30)
[2019-11-24] MEDS ORDERED: NOREPINEPHRINE BITARTRATE INJ/PF 4 MG/4 ML SDV IV ONE ×2 (01:17→07:07)
[2019-11-24] MEDS: DEXTROSE 5%-WATER 250 ML with NOREPINEPHRINE BITARTRATE 4 MG IV PRN ×6 (03:09→14:00)
[2019-11-24 03:48] LABS: ARTERIAL BLOOD BASE EXCESS -1.6 mmol/L; ARTERIAL BLOOD H2CO3 1.01 mmol/L (1.05-1.35); ARTERIAL BLOOD HCO3 22.1 mmol/L (20-24); ARTERIAL BLOOD PCO2 33.5 mmHg (35-45); ARTERIAL BLOOD PH 7.44 (7.35-7.45); ARTERIAL BLOOD PO2 87.5 mmHg (80-100); ARTERIAL BLOOD TOTAL CO2 23.1 mmol/L (23-27)
[2019-11-24 03:49] LABS: ARTERIAL BLOOD FIO2 4L
[2019-11-24 04:27] LABS: ALBUMIN 2.1 g/dL (3.5-5.0); ALKALINE PHOSPHATASE 73 U/L (38-126); ANION GAP 9 (5-19); ASPARTATE AMINO TRANSFERASE 444 U/L (17-59); BILIRUBIN,DIRECT 0.9 mg/dL (0.0-0.4); BILIRUBIN,TOTAL 1.5 mg/dL (0.2-1.3); BLOOD UREA NITROGEN 80 mg/dL (7-20); CARBON DIOXIDE 24 mmol/L (22-30); CHLORIDE 113 mmol/L (98-107); GLUCOSE 110 mg/dL (75-110); TOTAL PROTEIN 4.7 g/dL (6.3-8.2)
[2019-11-24 04:38] LABS: CALCIUM 6.9 mg/dL (8.4-10.2); POTASSIUM 2.7 mmol/L (3.6-5.0)
[2019-11-24] MEDS ORDERED: CALCIUM GLUC IN NACL, ISO-OSM 1 GM/50 ML RTUPB IV ONE (04:41)
[2019-11-24] MEDS ORDERED: NORMAL SALINE 1000 ML 1,000 ML IV PRN (04:45)
--- NOTE | 2019-11-24 05:00 | CRITICAL CARE ADMISSION REPORT ---
HPI Date:: 11/24/19 Time:: 02:00 Reason for ICU Reason:: Hyporensive with vasopressors requirment, MARY 2/2 rhabdomylysis, pneumonia Admission Date/Time & PCP: Admission Date/Time: 11/23/19 22:43 Primary Care Provider: OK TRELL HPI: Patient is a 79-year-old male with a past medical history of dementia who presents via EMS for unresponsiveness. He is unable to provide a history due to altered mental status. Per EMS, stated that he has had dark stools for several days, he was unresponsive and bradycardic. Whole blood was given by EMS and noted became more responsive. Currently, patient is responsive to painful stimuli and voice. Further history is unable to be obtained. - Diagnosis/Plan (1) Acute kidney injury Is this a current diagnosis for this admission?: Yes Plan: Noted patient has elevated BUN/Creatine secondary to hyotension, shock, rhabdomyolysis. NS bolus x 4 L and Norepinephrine and vasopressin initiated to improve perfusion. Will repeat BMP to monitor renal function. Avoid any nephrotoxic drugs. (2) Elevated liver function tests Is this a current diagnosis for this admission?: Yes Plan: Noted elevated LFTs secondary to shock liver due to hypotensive or low cardiac output. Will repeat chemistry. Maintain MAP > 65 mmhg. (3) Elevated troponin Is this a current diagnosis for this admission?: Yes Plan: EKG obatained. Troponin level will monitor. (4) Femur fracture, left Qualifiers: Encounter type: initial encounter Femur location: intertrochanteric Fracture type: closed Fracture alignment: nondisplaced Qualified Code(s): S72.145A - Nondisplaced intertrochanteric fracture of left femur, initial encounter for closed fracture Is this a current diagnosis for this admission?: Yes (5) Pneumonia Qualifiers: Pneumonia type: due to unspecified organism Laterality: left Lung location: lower lobe of lung Qualified Code(s): J18.9 - Pneumonia, unspecified organism Is this a current diagnosis for this admission?: Yes Plan: Started on emperic IV ABT cefepime 2 grams IV every 8 hours for CAP or as piration pneumonia. PUI for COVID results pending. (6) Rhabdomyolysis Qualifiers: Rhabdomyolysis type: non-traumatic Qualified Code(s): M62.82 - Rhabdomyolysis Is this a current diagnosis for this admission?: Yes Plan: per patient was not been doing well prior admission and immobile at home. Initial CK was elevated, IVF boluses was given. Will monitor CK level to see if level is improving or worsening. Will continue to give IVF. (7) Sepsis associated hypotension Is this a current diagnosis for this admission?: Yes Plan: Hypotensive and bradycardic upon arrival to ER. IVF boluses administered . Norepinephrine and vasopressin to initiated 2/2 to low BP. Lactic acid obtained. (8) Septic shock Is this a current diagnosis for this admission?: Yes Plan: IVF boluses adminitered. Vasopressors initiated. Past Medical History Cardiac Medical History: Reports: Hyperlipidema, Hypertension Denies: Atrial Fibrillation, Congestive Heart Failure, Coronary Artery Disease, Myocardial Infarction, Peripheral Vascular Disease, Heart Murmur Pulmonary Medical History: Denies: Asthma, Pneumonia, Sleep Apnea Neurological Medical History: Denies: Seizures Endocrine Medical History: Reports: Diabetes Mellitus Type 2 Denies: Hyperthyroidism, Hypothyroidism Renal/ Medical History: Denies: End Stage Renal Disease GI Medical History: Denies: Crohn's Disease, Gastroesophageal Reflux Disease, Hiatal Hernia Musculoskeltal Medical History: Reports: Arthritis - knees Denies: Fibromyalgia Psychiatric Medical History: Reports: Depression, Post Traumatic Stress Disorder Denies: Bipolar Disorder, Dementia Hematology: Denies: Anemia, Sickle Cell Disease Past Surgical History Past Surgical History: Reports: Orthopedic Surgery - Right shoulder replacement, right knee replacement Denies: Appendectomy, Cholecystectomy, Colostomy, Coronary Artery Bypass Graft, Gastric Bypass Surgery, Herniorrhaphy, Pacemaker, Tonsillectomy Social/Family History - Social History Lives with: Spouse/Significant other Smoking Status: Unknown if Ever Smoked Frequency of Alcohol Use: None Hx Recreational Drug Use: No Drugs: None Hx Prescription Drug Abuse: No - Medication/Allergies Home Medications: Lisinopril [Prinivil 40 mg Tablet] 40 mg PO DAILY 10/07/17 Metformin HCl [Metformin HCl ER] 500 mg PO DAILY 10/07/17 Atorvastatin Calcium [Lipitor 20 mg Tablet] 80 mg PO QHS 02/21/18 Carvedilol 12.5 mg PO BID 02/21/18 Tamsulosin HCl [Flomax] 0.4 g PO QPM 02/21/18 Acetaminophen [Pain Relief] 1,000 mg PO BIDP PRN 02/24/18 Amlodipine Besylate [Norvasc 10 mg Tablet] 10 mg PO DAILY 02/24/18 Cyanocobalamin (Vitamin B-12) [Vitamin B-12] 1,000 mg PO DAILY 02/24/18 Donepezil HCl 10 mg PO DAILY 02/24/18 Gerlaw-3 Fatty Acids/Fish Oil [Fish Oil 1,000 mg Capsule] 1,000 mg PO BID 02/24/18 Aspirin [Ecotrin 325 mg EC Tablet] 325 mg PO DAILY 02/28/18 Lidocaine/Transparent Dressing [Lidocaine 4% Kit] 1 each TP TIDP PRN 02/28/18 Allergies/Adverse Reactions: No Known Allergies Allergy (Verified 02/28/18 08:46) Review of Systems ROS unobtainable: Due to mental status Physical Exam Vital Signs: Temp Pulse Resp BP Pulse Ox 23 H 115/60 84 L 11/24/19 01:50 11/24/19 01:50 11/24/19 01:50 Intake & Output 11/22/19 11/23/19 11/24/19 06:59 06:59 06:59 Intake Total 4461 Balance 4461 Weight 78.6 kg Weight/Height Weight 78.6 kg General appearance: PRESENT: disheveled, thin Head exam: PRESENT: atraumatic, normocephalic, other Eye exam: PRESENT: conjunctiva pink, PERRLA Ear exam: PRESENT: normal external ear exam Mouth exam: PRESENT: dry mucosa, neck supple, tongue midline Teeth exam: PRESENT: edentulous, poor dentation Throat exam: PRESENT: other Neck exam: ABSENT: carotid bruit, JVD, lymphadenopathy, thyromegaly Cardiovascular exam: PRESENT: bradycardia, RRR, +S1, +S2 Pulses: PRESENT: normal carotid pulses, +1 pedal pulses bilateral, +2 pedal pulses bilateral GI/Abdominal exam: PRESENT: normal bowel sounds, soft Rectal exam: PRESENT: deferred Gentrourinary exam: PRESENT: indwelling catheter Neurological exam: PRESENT: altered Psychiatric exam: PRESENT: flat affect Skin exam: PRESENT: abrasion, dry, other Additional comments: noted small open areas at bolth lower extremities. Laboratory/Radiographs Laboratory Results: 11/23/19 17:41 11/23/19 11/23/19 11/23/19 17:41 17:41 17:41 WBC 4.3 RBC 3.13 L Hgb 9.4 L Hct 27.7 L MCV 88 MCH 29.9 MCHC 33.8 RDW 15.4 H Plt Count 39 L Seg Neutrophils % Not Reportable Carbonic Acid HCO3/H2CO3 Ratio ABG pH ABG pCO2 ABG pO2 ABG HCO3 ABG O2 Saturation ABG Base Excess FiO2 Sodium 145.0 Potassium 3.2 L Chloride 108 H Carbon Dioxide 24 Anion Gap 13 BUN 78 H Creatinine 3.39 H Est GFR ( Amer) 21 L Glucose 92 Lactic Acid 3.5 H Calcium 7.5 L Magnesium Total Bilirubin 1.4 H AST 408 H Alkaline Phosphatase 71 Total Protein 4.1 L Albumin 1.9 L Lipase 25.2 Urine Color Urine Appearance Urine pH Ur Specific [place] Urine Protein Urine Glucose (UA) Urine Ketones Urine Blood Urine Nitrite Ur Leukocyte Esterase Urine WBC (Auto) Blood Type Antibody Screen 11/23/19 11/23/19 11/23/19 17:41 17:41 17:41 WBC RBC Hgb Hct MCV MCH MCHC RDW Plt Count Seg Neutrophils % Carbonic Acid HCO3/H2CO3 Ratio ABG pH ABG pCO2 ABG pO2 ABG HCO3 ABG O2 Saturation ABG Base Excess FiO2 Sodium Potassium Chloride Carbon Dioxide Anion Gap BUN Creatinine Est GFR ( Amer) Glucose Lactic Acid Calcium Magnesium 2.6 H Total Bilirubin AST Alkaline Phosphatase Total Protein Albumin Lipase Urine Color ARNALDO Urine Appearance SLIGHTLY-CLOUDY Urine pH 5.0 Ur Specific [place] 1.023 Urine Protein 30 H Urine Glucose (UA) NEGATIVE Urine Ketones NEGATIVE Urine Blood NEGATIVE Urine Nitrite NEGATIVE Ur Leukocyte Esterase NEGATIVE Urine WBC (Auto) 0 Blood Type A POSITIVE Antibody Screen POSITIVE 11/23/19 11/23/19 11/24/19 19:15 20:26 03:05 WBC RBC Hgb Hct MCV MCH MCHC RDW Plt Count Seg Neutrophils % Carbonic Acid 1.13 1.01 L HCO3/H2CO3 Ratio 21:1 21:1 ABG pH 7.43 7.44 ABG pCO2 37.7 33.5 L ABG pO2 79.4 L 87.5 ABG HCO3 24.3 H 22.1 ABG O2 Saturation 96.1 97.0 ABG Base Excess 0.1 -1.6 FiO2 5L 4L Sodium Potassium Chloride Carbon Dioxide Anion Gap BUN Creatinine Est GFR ( Amer) Glucose Lactic Acid 1.9 Calcium Magnesium Total Bilirubin AST Alkaline Phosphatase Total Protein Albumin Lipase Urine Color Urine Appearance Urine pH Ur Specific [place] Urine Protein Urine Glucose (UA) Urine Ketones Urine Blood Urine Nitrite Ur Leukocyte Esterase Urine WBC (Auto) Blood Type Antibody Screen 11/23/19 11/23/19 11/24/19 17:41 17:41 00:28 Creatine Kinase 4086 H 5523 H Troponin I 0.170 11/24/19 00:28 Creatine Kinase Troponin I 0.231 Impressions: Chest X-Ray 11/23/19 17:55 IMPRESSION: Cannot entirely exclude a limited left lower lobe pneumonia. Chest CT 11/23/19 20:09 IMPRESSION: Bibasilar airspace disease and adjacent effusions. Pneumonia could have this appearance. Given bibasilar distribution, aspiration is a consideration. No high-grade bowel obstruction. Moderate hard stool within the colon. Acute intertrochanteric fracture left femur. Study is degraded by artifact from the patient's arms and motion. Additionally given stranding within all the imaged fat, tissue planes are difficult to discern.. Head CT 11/23/19 20:09 IMPRESSION: Imaging is degraded by patient motion, with resultant artifact. The best possible images were obtained. No acute intracranial process. Age-related involutional changes are identified. Presumed old small vessel ischemic changes are seen predominantly in a periventricular distribution.. The cause of the patient's metal status change is not identified on this examination. Abdomen/Pelvis CT 11/23/19 20:10 IMPRESSION: Bibasilar airspace disease and adjacent effusions. Pneumonia could have this appearance. Given bibasilar distribution, aspiration is a consideration. No high-grade bowel obstruction. Moderate hard stool within the colon. Acute intertrochanteric fracture left femur. Study is degraded by artifact from the patient's arms and motion. Additionally given stranding within all the imaged fat, tissue planes are difficult to discern.. Cervical Spine CT 11/23/19 22:17 IMPRESSION: No acute fracture or subluxation of the cervical spine. Femur X-Ray 11/23/19 22:43 IMPRESSION: Intertrochanteric fracture. copyright 2010 [employer]- All Rights Reserved Pelvis X-Ray 11/23/19 22:43 IMPRESSION: Intertrochanteric fracture of the left hip. copyright 2010 [employer]- All Rights Reserved All labs, radiographs, diagnostic studies and EKGs were personally reviewed: Yes In addition, reports of radiographic and diagnostic studies were read: Yes Critical Time Critical Time (minutes): 40 -: The care of a critically ill patient is dynamic. This note represents a static moment in the admission process. Orders and treatments may be given simultaneously and urgently, and time is not insurance claim representative of the treatment pr ocess. This patient requires Critical Care secondary to life threatening organ or limb dysfunction. Without Critical Care services, the patient is at risk for increased mortality and morbidity.
[2019-11-24] MEDS: POTASSI CL 20 MEQ/50 ML RIDER 20 MEQ/50 ML RTUPB IV SCH ×2 (06:30→10:49)
[2019-11-24] MEDS ORDERED: VANCOMYCIN HCL INJ 1000 MG VIAL IV ONE (07:03)
[2019-11-24 07:07] LABS: HEMATOCRIT 27.7 % (37.9-51.0); HEMOGLOBIN 9.4 g/dL (13.5-17.0); MEAN CORPUSCULAR HEMOGLOBIN 29.5 pg (27.0-33.4); MEAN CORPUSCULAR HGB CONC 33.8 g/dL (32.0-36.0); MEAN CORPUSCULAR VOLUME 87 fl (80-97); RED BLOOD COUNT 3.17 10^6/uL (4.35-5.55); RED CELL DISTRIBUTION WIDTH 15.3 % (11.5-14.0)
[2019-11-24 07:26] LABS: PLATELET COUNT 33 10^3/uL (150-450)
[2019-11-24 07:31] LABS: ABSOLUTE LYMPHOCYTES# (MANUAL) 0.1 10^3/uL (0.5-4.7); ABSOLUTE MONOCYTES # (MANUAL) 0.1 10^3/uL (0.1-1.4); ANISOCYTOSIS SLIGHT; BASOPHILS % (MANUAL) 0 % (0-2); EOSINOPHILS % (MANUAL) 0 % (0-6); LYMPHOCYTES % (MANUAL) 3 % (13-45); MONOCYTES % (MANUAL) 2 % (3-13); PLATELET COMMENT DECREASED; PLATELET LARGE PRESENT; SEGMENTED NEUTROPHILS % (MAN) 95 % (42-78); TOTAL CELLS COUNTED 100
[2019-11-24 07:32] LABS: TEAR DROP CELLS SLIGHT
--- NOTE | 2019-11-24 08:29 | RADIOLOGY REPORT (SQ) ---
EXAM DESCRIPTION: CHEST SINGLE VIEW IMAGES COMPLETED DATE/TIME: 11/24/2019 4:22 am REASON FOR STUDY: Pneumonia COMPARISON: 11/23/2019 EXAM PARAMETERS: NUMBER OF VIEWS: One view. TECHNIQUE: Single frontal radiographic view of the chest acquired. RADIATION DOSE: NA LIMITATIONS: None. FINDINGS: LUNGS AND PLEURA: There is a peripheral wedge-shaped opacity at the right lung base ; this correlates to a focal consolidation on comparison CT imaging. No new focal consolidation. No pleur al effusion or pneumothorax evident. MEDIASTINUM AND HILAR STRUCTURES: No masses. Contour normal. HEART AND VASCULAR STRUCTURES: Heart normal in size. Normal vasculature. BONES: No acute findings. HARDWARE: Status post left total glenohumeral arthroplasty OTHER: No other significant finding. IMPRESSION: Right middle lobe peripheral opacification similar to that seen on comparison CT imaging . No acute findings. TECHNICAL DOCUMENTATION: JOB ID: [id number] 2010 [employer]- All Rights Reserved Reading location - IP/workstation name: [email or web address]
[2019-11-24] MEDS ORDERED: VANCOMYCIN HCL 1,000 MG in DEXTROSE 5%-WATER 250 ML IV ONE (09:15)
[2019-11-24] MEDS ORDERED: CEFEPIME 2 GM/D5W RTU 2 GM/50 ML RTUPB IV SCH (10:00)
[2019-11-24 10:16] LABS: PATH REVIEW PATHOLOGIST REVIEWED
[2019-11-24] MEDS ORDERED: CEFEPIME HCL 2 GM in DEXTROSE 5%-WATER 50 ML IV SCH (11:00)
[2019-11-24 11:58] LABS: APPEARANCE,URINE CLOUDY; BILIRUBIN,URINE NEGATIVE (NEGATIVE); GLUCOSE, URINE NEGATIVE (NEGATIVE); KETONES,URINE NEGATIVE (NEGATIVE); LEUKOCYTE ESTERASE,URINE NEGATIVE (NEGATIVE); NITRITE,URINE NEGATIVE (NEGATIVE); PROTEIN,URINE 30 mg/dL (NEGATIVE); URINE SPECIFIC GRAVITY 1.021
[2019-11-24 12:02] LABS: COLOR,URINE DARK YELLOW
[2019-11-24] MEDS: RINGERS SOLUTION,LACTATED 1,000 ML IV PRN ×2 (13:13→19:40)
[2019-11-24] MEDS ORDERED: DEXTROSE 5%-WATER 250 ML with VASOPRESSIN 100 UNIT IV PRN ×2 (13:57)
[2019-11-24 14:13] LABS: ARTERIAL BLOOD BASE EXCESS -4.1 mmol/L; ARTERIAL BLOOD H2CO3 0.98 mmol/L (1.05-1.35); ARTERIAL BLOOD O2 SATURATION 98.5 % (94-98); ARTERIAL BLOOD PCO2 32.6 mmHg (35-45); ARTERIAL BLOOD PH 7.41 (7.35-7.45); ARTERIAL BLOOD PO2 125.5 mmHg (80-100)
[2019-11-24 14:14] LABS: ARTERIAL BLOOD FIO2 4L
[2019-11-24] MEDS: PANTOPRAZOLE SODIUM 40 MG VIAL IV SCH (14:32)
[2019-11-24] MEDS ORDERED: PHARMACY COMMUNICATION ORDER MC NR (15:30)
[2019-11-24 15:46] LABS: TROPONIN I 0.569 ng/mL
--- NOTE | 2019-11-24 16:36 | XCELERA REPORT ---
[address] [address] Transthoracic Echocardiogram Report Name: FEDERICA HOLLAND Age: 79 yrs Gender: Male : 1940 Patient Status: Inpatient Patient Location: ICU^[id number]^A Study Date: 11/24/2019 11:00 AM History: Shock, Elevated Troponin Height: 72 in Weight: 173 lb BSA: 2.0 m2 Procedure: A complete two-dimensional transthoracic echocardiogram was performed (2D, M-mode, spectral and color flow Doppler). The study was technically adequate with some images being suboptimal in quality. Reason For Study: elevated Troponin, hypotensive/ shock History: Shock Elevated Troponin. Ordering Physician: ERMA DE LA GARZA Performed By: Kriss Prince Interpretation Summary Left ventricular systolic function is moderately reduced. The Ejection Fraction estimate is 35-40% The right ventricle is normal in size and function. There is a moderate amount of mitral regurgitation There is no aortic valve stenosis There is a moderate amount of tricuspid regurgitation There is moderate pulmonary hypertension by echo There is no pericardial effusion. MMode/2D Measurements & Calculations RVDd: 3.7 cm LVIDd: 4.6 cm FS: 24.3 % Ao root diam: 2.9 cm IVSd: 1.1 cm LVIDs: 3.5 cm EDV(Teich): Ao root area: LVPWd: 1.1 cm 99.6 ml 6.5 cm2 ESV(Teich): LA dimension: 3.9 cm 51.4 ml EF(Teich): 48.4 % LVLd ap4: 7.2 cm SV(MOD-sp4): EDV(MOD-sp4): 44.0 ml 101.0 ml LVLs ap4: 6.6 cm ESV(MOD-sp4): 57.0 ml EF(MOD-sp4): 43.6 % Doppler Measurements & Calculations MV E max kaushik: MV P1/2t max kaushik: Ao V2 max: LV V1 max P.0 cm/sec 71.0 cm/sec 80.1 cm/sec 1.9 mmHg MV A max kaushik: MV P1/2t: 58.5 msec Ao max PG: LV V1 max: 63.9 cm/sec MVA(P1/2t): 3.8 cm2 2.6 mmHg 69.1 cm/sec MV E/A: 1.1 MV dec slope: LV dP/dt: 355.1 cm/sec2 2272 mmHg/s MV dec time: 0.20 sec PA V2 max: PI end-d kaushik: TR max kaushik: MV P1/2t-pr_phl: 48.1 cm/sec 143.2 cm/sec 329.0 cm/sec 58.5 msec PA max PG: TR max P.93 mmHg 43.3 mmHg Left Ventricle The left ventricle is mildly dilated. Excessive trabeculation noted at the apex and lateral wall. There is mild to moderate concentric left ventricular hypertrophy. Left ventricular systolic function is moderately reduced. The Ejection Fraction estimate is 35-40%. Doppler measurements suggest pseudonormalized left ventricular relaxation, which is associated with grade II/IV or mild to moderate diastolic dysfunction. There is mild to moderate global hypokinesis of the left ventricle. Right Ventricle The right ventricle is normal in size and function. Atria The right atrium is normal. The left atrium is moderately dilated. The interatrial septum is intact with no evidence for an atrial septal defect. Mitral Valve The mitral valve is grossly normal. There is no mitral valve stenosis. There is a moderate amount of mitral regurgitation. Aortic Valve The aortic valve opens well. The aortic valve is normal in structure and function. The aortic valve is trileaflet. There is no aortic valve stenosis. No aortic regurgitation is present. Tricuspid Valve The tricuspid valve is normal in structure and function. There is a moderate amount of tricuspid regurgitation. Right ventricular systolic pressure is estimated to be elevated at 40-50mmHg. There is moderate pulmonary hypertension by echo. Pulmonic Valve The pulmonic valve is normal in structure and function. There is a mild amount of pulmonic regurgitation. Great Vessels The aortic root is normal size. The IVC is dilated and has no respiratory collapse suggesting significantly high central venous pressures. Effusions There is no pericardial effusion. : ERMA DE LA GARZA Anil
[2019-11-24 16:50] LABS: ANION GAP 10 (5-19); BLOOD UREA NITROGEN 82 mg/dL (7-20); CALCIUM 7.1 mg/dL (8.4-10.2); CARBON DIOXIDE 21 mmol/L (22-30); CHLORIDE 111 mmol/L (98-107); GLUCOSE 159 mg/dL (75-110)
--- NOTE | 2019-11-24 16:51 | EKG REPORT ---
SEVERITY:- BORDERLINE ECG - SINUS RHYTHM LOW VOLTAGE IN FRONTAL LEADS BORDERLINE R WAVE PROGRESSION, ANTERIOR LEADS : Confirmed by: Ben Rae MD 24-Nov-2019 16:50:49
[2019-11-24 17:10] LABS: POTASSIUM 3.9 mmol/L (3.6-5.0)
--- NOTE | 2019-11-24 17:57 | RADIOLOGY REPORT (SQ) ---
EXAM DESCRIPTION: KUB/ABDOMEN (SINGLE VIEW) IMAGES COMPLETED DATE/TIME: 11/24/2019 4:58 pm REASON FOR STUDY: Check Placement of NG Tube COMPARISON: None. NUMBER OF VIEWS: One view. TECHNIQUE: Supine radiographic image of the abdomen acquired. LIMITATIONS: None. FINDINGS: BOWEL GAS PATTERN: In the periphery of the right mid lung zone, opacity is again identifi ed unchanged from the prior plain film chest study dated 11/24/2019. CALCIFICATIONS: No suspicious calcifications. SOFT TISSUES: No gross mass or suggestion of organomegaly. HARDWARE: Partially visualized nasogastric tube, the tip over overlies the fundus--proximal body of the stomach. BONES: No acute fracture. No worrisome bone lesions. OTHER: No other significant finding. IMPRESSION: 1. Partially visualized nasogastric tube, tip overlies the fundus -proximal body of the stomach. TECHNICAL DOCUMENTATION: JOB ID: [id number] 2010 [employer]- All Rights Reserved Reading location - IP/workstation name: [email or web address]
--- NOTE | 2019-11-24 18:10 | PDOC CONSULTATION ---
Consultation Consult Date: 11/24/19 Provider Consulted: SANDEEP MARTÍNEZ Consult reason:: Left hip nondisplaced intertrochanteric fracture History of Present Illness Admission Date/PCP: 11/23/19 22:[facility] History of Present Illness: FEDERICA HOLLAND is a 79 year old male admitted to the intensive care unit with septic shock, acute renal failure, rhabdomyolysis, and pneumonia. The patient has a history of multiple falls. In addition to his complex medical problems a nondisplaced intertrochanteric fracture of the left hip was identified on admission. Past Medical History Cardiac Medical History: Reports: Hyperlipidema, Hypertension Denies: Atrial Fibrillation, Congestive Heart Failure, Coronary Artery Disease, Myocardial Infarction, Peripheral Vascular Disease, Heart Murmur Pulmonary Medical History: Denies: Asthma, Pneumonia, Sleep Apnea Neurological Medical History: Denies: Seizures Endocrine Medical History: Reports: Diabetes Mellitus Type 2 Denies: Hyperthyroidism, Hypothyroidism Renal/ Medical History: Denies: End Stage Renal Disease GI Medical History: Denies: Crohn's Disease, Gastroesophageal Reflux Disease, Hiatal Hernia Musculoskeltal Medical History: Reports: Arthritis - knees Denies: Fibromyalgia Psychiatric Medical History: Reports: Depression, Post Traumatic Stress Disorder Denies: Bipolar Disorder, Dementia Hematology: Denies: Anemia, Sickle Cell Disease Past Surgical History Past Surgical History: Reports: Orthopedic Surgery - Right shoulder replacement, right knee replacement Denies: Appendectomy, Cholecystectomy, Colostomy, Coronary Artery Bypass Graft, Gastric Bypass Surgery, Herniorrhaphy, Pacemaker, Tonsillectomy Social History Lives with: Spouse/Significant other Smoking Status: Unknown if Ever Smoked Frequency of Alcohol Use: None Hx Recreational Drug Use: No Drugs: None Hx Prescription Drug Abuse: No Family History Family History: Reviewed & Not Pertinent Parental Family History Reviewed: No Children Family History Reviewed: No Sibling(s) Family History Reviewed.: No Medication/Allergy Home Medications: Lisinopril [Prinivil 40 mg Tablet] 40 mg PO DAILY 10/07/17 Atorvastatin Calcium [Lipitor 20 mg Tablet] 80 mg PO QHS 02/21/18 Acetaminophen [Pain Relief] 1,000 mg PO BIDP PRN 02/24/18 Donepezil HCl 10 mg PO DAILY 02/24/18 [place]-3 Fatty Acids/Fish Oil [Fish Oil 1,000 mg Capsule] 1,000 mg PO BID 02/24/18 Cholecalciferol (Vitamin D3) [Vitamin D3 1000 Unit Tablet] 2,000 unit PO DAILY 11/24/19 Memantine HCl [Namenda 10 mg Tablet] 10 mg PO BID 11/24/19 Allergies/Adverse Reactions: No Known Allergies Allergy (Verified 02/28/18 08:46) Review of Systems ROS unobtainable: Due to mental status Physical Exam Vital Signs: Temp Pulse Resp BP Pulse Ox 96.8 F L 56 L 24 H 122/62 100 11/24/19 14:00 11/24/19 16:00 11/24/19 16:00 11/24/19 16:00 11/24/19 14:02 Intake & Output 11/23/19 11/24/19 11/25/19 06:59 06:59 06:59 Intake Total 4552 2666 Output Total 125 332 Balance 4427 2334 Weight 79.7 kg General appearance: PRESENT: disheveled, thin Musculoskeletal exam: PRESENT: other - There is normal clinical alignment of the left leg. Results Laboratory Results: 11/24/19 06:32 11/24/19 14:50 11/23/19 11/23/19 11/23/19 17:41 17:41 17:41 WBC 4.3 RBC 3.13 L Hgb 9.4 L Hct 27.7 L MCV 88 MCH 29.9 MCHC 33.8 RDW 15.4 H Plt Count 39 L Seg Neutrophils % Not Reportable Carbonic Acid HCO3/H2CO3 Ratio ABG pH ABG pCO2 ABG pO2 ABG HCO3 ABG O2 Saturation ABG Base Excess FiO2 Sodium 145.0 Potassium 3.2 L Chloride 108 H Carbon Dioxide 24 Anion Gap 13 BUN 78 H Creatinine 3.39 H Est GFR ( Amer) 21 L Glucose 92 Lactic Acid 3.5 H Calcium 7.5 L Magnesium Total Bilirubin 1.4 H AST 408 H Alkaline Phosphatase 71 Total Protein 4.1 L Albumin 1.9 L Lipase 25.2 Urine Color Urine Appearance Urine pH Ur Specific [place] Urine Protein Urine Glucose (UA) Urine Ketones Urine Blood Urine Nitrite Ur Leukocyte Esterase Urine WBC (Auto) Urine RBC (Auto) Blood Type Antibody Screen 11/23/19 11/23/19 11/23/19 17:41 17:41 17:41 WBC RBC Hgb Hct MCV MCH MCHC RDW Plt Count Seg Neutrophils % Carbonic Acid HCO3/H2CO3 Ratio ABG pH ABG pCO2 ABG pO2 ABG HCO3 ABG O2 Saturation ABG Base Excess FiO2 Sodium Potassium Chloride Carbon Dioxide Anion Gap BUN Creatinine Est GFR ( Amer) Glucose Lactic Acid Calcium Magnesium 2.6 H Total Bilirubin AST Alkaline Phosphatase Total Protein Albumin Lipase Urine Color ARNALDO Urine Appearance SLIGHTLY-CLOUDY Urine pH 5.0 Ur Specific [place] 1.023 Urine Protein 30 H Urine Glucose (UA) NEGATIVE Urine Ketones NEGATIVE Urine Blood NEGATIVE Urine Nitrite NEGATIVE Ur Leukocyte Esterase NEGATIVE Urine WBC (Auto) 0 Urine RBC (Auto) Blood Type A POSITIVE Antibody Screen POSITIVE 11/23/19 11/23/19 11/24/19 19:15 20:26 03:05 WBC RBC Hgb Hct MCV MCH MCHC RDW Plt Count Seg Neutrophils % Carbonic Acid 1.13 1.01 L HCO3/H2CO3 Ratio 21:1 21:1 ABG pH 7.43 7.44 ABG pCO2 37.7 33.5 L ABG pO2 79.4 L 87.5 ABG HCO3 24.3 H 22.1 ABG O2 Saturation 96.1 97.0 ABG Base Excess 0.1 -1.6 FiO2 5L 4L Sodium Potassium Chloride Carbon Dioxide Anion Gap BUN Creatinine Est GFR ( Amer) Glucose Lactic Acid 1.9 Calcium Magnesium Total Bilirubin AST Alkaline Phosphatase Total Protein Albumin Lipase Urine Color Urine Appearance Urine pH Ur Specific [place] Urine Protein Urine Glucose (UA) Urine Ketones Urine Blood Urine Nitrite Ur Leukocyte Esterase Urine WBC (Auto) Urine RBC (Auto) Blood Type Antibody Screen 11/24/19 11/24/19 11/24/19 03:20 06:32 06:32 WBC 3.0 L RBC 3.17 L Hgb 9.4 L Hct 27.7 L MCV 87 MCH 29.5 MCHC 33.8 RDW 15.3 H Plt Count 33 L Seg Neutrophils % Not Reportable Carbonic Acid HCO3/H2CO3 Ratio ABG pH ABG pCO2 ABG pO2 ABG HCO3 ABG O2 Saturation ABG Base Excess FiO2 Sodium 146.2 H Potassium 2.7 L* Chloride 113 H Carbon Dioxide 24 Anion Gap 9 BUN 80 H Creatinine 3.30 H Est GFR ( Amer) 22 L Glucose 110 Lactic Acid 2.4 H Calcium 6.9 L* Magnesium Total Bilirubin 1.5 H AST 444 H Alkaline Phosphatase 73 Total Protein 4.7 L Albumin 2.1 L Lipase Urine Color Urine Appearance Urine pH Ur Specific [place] Urine Protein Urine Glucose (UA) Urine Ketones Urine Blood Urine Nitrite Ur Leukocyte Esterase Urine WBC (Auto) Urine RBC (Auto) Blood Type Antibody Screen 11/24/19 11/24/19 11/24/19 10:51 13:48 14:50 WBC RBC Hgb Hct MCV MCH MCHC RDW Plt Count Seg Neutrophils % Carbonic Acid 0.98 L HCO3/H2CO3 Ratio 20:1 ABG pH 7.41 ABG pCO2 32.6 L ABG pO2 125.5 H ABG HCO3 20.0 ABG O2 Saturation 98.5 H ABG Base Excess -4.1 FiO2 4L Sodium 142.1 Potassium 3.9 D Chloride 111 H Carbon Dioxide 21 L Anion Gap 10 BUN 82 H Creatinine 3.38 H Est GFR ( Amer) 21 L Glucose 159 H Lactic Acid Calcium 7.1 L Magnesium Total Bilirubin AST Alkaline Phosphatase Total Protein Albumin Lipase Urine Color DARK YELLOW Urine Appearance CLOUDY Urine pH 5.0 Ur Specific [place] 1.021 Urine Protein 30 H Urine Glucose (UA) NEGATIVE Urine Ketones NEGATIVE Urine Blood LARGE H Urine Nitrite NEGATIVE Ur Leukocyte Esterase NEGATIVE Urine WBC (Auto) 7 Urine RBC (Auto) 4 Blood Type Antibody Screen 11/23/19 17:41 Blood Blood Culture (PCR) - Final Staphylococcus Aureus 11/23/19 18:45 Blood Blood Culture (PCR) - Final Staphylococcus Aureus 11/23/19 11/23/19 11/24/19 17:41 17:41 00:28 Creatine Kinase 4086 H 5523 H CK-MB (CK-2) Troponin I 0.170 NT-Pro-B Natriuret Pep 11/24/19 11/24/19 11/24/19 00:28 03:20 03:20 Creatine Kinase CK-MB (CK-2) Troponin I 0.231 0.240 NT-Pro-B Natriuret Pep 1070 H 11/24/19 11/24/19 11/24/19 06:32 06:32 11:00 Creatine Kinase 3765 H CK-MB (CK-2) 23.10 H Troponin I 0.375 NT-Pro-B Natriuret Pep 11/24/19 14:50 Creatine Kinase CK-MB (CK-2) Troponin I 0.569 NT-Pro-B Natriuret Pep 6100 H Impressions: Chest CT 11/23/19 20:09 IMPRESSION: Bibasilar airspace disease and adjacent effusions. Pneumonia could have this appearance. Given bibasilar distribution, aspiration is a consideration. No high-grade bowel obstruction. Moderate hard stool within the colon. Acute intertrochanteric fracture left femur. Study is degraded by artifact from the patient's arms and motion. Additionally given stranding within all the imaged fat, tissue planes are difficult to discern.. Head CT 11/23/19 20:09 IMPRESSION: Imaging is degraded by patient motion, with resultant artifact. The best possible images were obtained. No acute intracranial process. Age-related involutional changes are identified. Presumed old small vessel ischemic changes are seen predominantly in a periventricular distribution.. The cause of the patient's metal status change is not identified on this examination. Abdomen/Pelvis CT 11/23/19 20:10 IMPRESSION: Bibasilar airspace disease and adjacent effusions. Pneumonia could have this appearance. Given bibasilar distribution, aspiration is a consideration. No high-grade bowel obstruction. Moderate hard stool within the colon. Acute intertrochanteric fracture left femur. Study is degraded by artifact from the patient's arms and motion. Additionally given stranding within all the imaged fat, tissue planes are difficult to discern.. Cervical Spine CT 11/23/19 22:17 IMPRESSION: No acute fracture or subluxation of the cervical spine. Femur X-Ray 11/23/19 22:43 IMPRESSION: Intertrochanteric fracture. copyright 2010 [email or web address]- All Rights Reserved Pelvis X-Ray 11/23/19 22:43 IMPRESSION: Intertrochanteric fracture of the left hip. copyright 2010 [email or web address]- All Rights Reserved Chest X-Ray 11/24/19 04:00 IMPRESSION: Right middle lobe peripheral opacification similar to that seen on comparison CT imaging. No acute findings. KUB X-Ray 11/24/19 15:22 IMPRESSION: 1. Partially visualized nasogastric tube, tip overlies the fundus -proximal body of the stomach. Assessment & Plan - Diagnosis (1) Nondisplaced intertrochanteric fracture of left femur, initial encounter for closed fracture Is this a current diagnosis for this admission?: Yes - Time Time Spent: 30 to 50 Minutes Anticipated discharge: SNF Anticipated DC Timeframe: Other - Plan Summary Plan Summary: The patient is critically ill and admitted to the intensive care unit with septic shock, acute renal failure, rhabdomyolysis, and pneumonia. The patient also has a nondisplaced fracture of the left hip. I have discussed the patient's medical and orthopedic condition directly with the planer operator. The nondisplaced fracture is not a contraindication for mobilization for pulmonary toilet. He may sit upright in bed and be transferred to a chair as appropriate. I would recommend operative fixation of the intertrochanteric fracture when the patient's medical condition stabilizes. Please contact me through the page builder operator when the patient is medically stable to undergo operative intervention.
[2019-11-24] MEDS: PIPERACILLIN SODIUM/TAZOBACTAM 2.25 GM in NORMAL SALINE 50 ML IV SCH (18:38)
[2019-11-24 19:19] LABS: ABSOLUTE RETICS # 0.007 10^6/uL (0.028-0.122)
[2019-11-24 19:20] LABS: APPEARANCE,URINE CLOUDY; BILIRUBIN,URINE NEGATIVE (NEGATIVE); GLUCOSE, URINE NEGATIVE (NEGATIVE); KETONES,URINE NEGATIVE (NEGATIVE); LEUKOCYTE ESTERASE,URINE NEGATIVE (NEGATIVE); NITRITE,URINE NEGATIVE (NEGATIVE); PROTEIN,URINE 30 mg/dL (NEGATIVE); URINE SPECIFIC GRAVITY 1.019
[2019-11-24] MEDS: HEPARIN SOD (PORCINE) 5,000 UNIT/ML 1 ML VIAL SUBCUT SCH (19:28)
[2019-11-24 19:31] LABS: COLOR,URINE YELLOW
[2019-11-24] MEDS ORDERED: ACETAMINOPHEN SOLN 325 MG/10.15 ML UDCUP NG PRN (20:01)
[2019-11-24 20:38] LABS: FOLATE 6.76 ng/mL (>2.76)
[2019-11-24 20:40] LABS: RETICULOCYTE COUNT (AUTO) 0.23 % (0.66-2.85)
[2019-11-24] MEDS ORDERED: FAMOTIDINE INJ/PF 20 MG/2 ML SDV IV SCH (22:00)
[2019-11-24] MEDS: DOPAMINE HCL/DEXTROSE 5%-WATER 800 MG/250 ML RTUINJ IV PRN (22:17)
[2019-11-25] MEDS: PIPERACILLIN SODIUM/TAZOBACTAM 2.25 GM in NORMAL SALINE 50 ML IV SCH ×3 (00:50→11:16)
[2019-11-25] MEDS: RINGERS SOLUTION,LACTATED 1,000 ML IV PRN ×4 (01:19→14:25)
[2019-11-25 02:08] LABS: ANION GAP 10 (5-19); BLOOD UREA NITROGEN 87 mg/dL (7-20); CARBON DIOXIDE 21 mmol/L (22-30); CHLORIDE 112 mmol/L (98-107); GLUCOSE 171 mg/dL (75-110); POTASSIUM 3.5 mmol/L (3.6-5.0)
[2019-11-25 02:41] LABS: APPEARANCE,URINE CLOUDY; BILIRUBIN,URINE NEGATIVE (NEGATIVE); COLOR,URINE AMBER; GLUCOSE, URINE NEGATIVE (NEGATIVE); KETONES,URINE NEGATIVE (NEGATIVE); LEUKOCYTE ESTERASE,URINE NEGATIVE (NEGATIVE); NITRITE,URINE NEGATIVE (NEGATIVE); PROTEIN,URINE 30 mg/dL (NEGATIVE); URINE SPECIFIC GRAVITY 1.018
[2019-11-25] MEDS ORDERED: CALCIUM GLUC IN NACL, ISO-OSM 1 GM/50 ML RTUPB IV ONE ×2 (04:08→06:37)
[2019-11-25 04:44] LABS: ANION GAP 9 (5-19); BLOOD UREA NITROGEN 88 mg/dL (7-20); CARBON DIOXIDE 21 mmol/L (22-30); CHLORIDE 112 mmol/L (98-107); GLUCOSE 180 mg/dL (75-110); POTASSIUM 3.4 mmol/L (3.6-5.0)
[2019-11-25] MEDS: DEXTROSE 5%-WATER 250 ML with NOREPINEPHRINE BITARTRATE 4 MG IV PRN ×6 (04:48→12:10)
[2019-11-25] MEDS ORDERED: POTASSI CL 20 MEQ/50 ML RIDER 20 MEQ/50 ML RTUPB IV ONE (06:35)
[2019-11-25] MEDS ORDERED: POTASSIUM CHLORIDE 20 MEQ PACKET NG ONE (06:36)
[2019-11-25] MEDS: DEXTROSE 5%-WATER 250 ML with VASOPRESSIN 100 UNIT IV PRN ×2 (08:35)
[2019-11-25] MEDS ORDERED: VASOPRESSIN INJ 20 UNIT/1 ML VIAL ONE (08:40)
[2019-11-25] MEDS: PANTOPRAZOLE SODIUM 40 MG VIAL IV SCH (09:40)
[2019-11-25] MEDS: ASPIRIN 81 MG TABLET, CHEWABLE PO SCH (09:40)
[2019-11-25 10:13] LABS: AMORPHOUS SEDIMENT,URINE TRACE /HPF; APPEARANCE,URINE SLIGHTLY-CLOUDY; BILIRUBIN,URINE NEGATIVE (NEGATIVE); COLOR,URINE AMBER; GLUCOSE, URINE NEGATIVE (NEGATIVE); KETONES,URINE NEGATIVE (NEGATIVE); LEUKOCYTE ESTERASE,URINE NEGATIVE (NEGATIVE); NITRITE,URINE NEGATIVE (NEGATIVE); PROTEIN,URINE 30 mg/dL (NEGATIVE); URINE SPECIFIC GRAVITY 1.021
[2019-11-25 10:17] LABS: HEMATOCRIT 26.7 % (37.9-51.0); HEMOGLOBIN 8.9 g/dL (13.5-17.0); MEAN CORPUSCULAR HEMOGLOBIN 28.8 pg (27.0-33.4); MEAN CORPUSCULAR HGB CONC 33.3 g/dL (32.0-36.0); MEAN CORPUSCULAR VOLUME 87 fl (80-97); RED BLOOD COUNT 3.08 10^6/uL (4.35-5.55); RED CELL DISTRIBUTION WIDTH 15.6 % (11.5-14.0); WHITE BLOOD COUNT 2.8 10^3/uL (4.0-10.5)
[2019-11-25 10:27] LABS: ANION GAP 8 (5-19); BLOOD UREA NITROGEN 91 mg/dL (7-20); CALCIUM 7.1 mg/dL (8.4-10.2); CARBON DIOXIDE 24 mmol/L (22-30); CHLORIDE 108 mmol/L (98-107); GLUCOSE 352 mg/dL (75-110); POTASSIUM 3.4 mmol/L (3.6-5.0)
[2019-11-25 10:42] LABS: ABSOLUTE MONOCYTES # (MANUAL) 0.1 10^3/uL (0.1-1.4); BASOPHILS % (MANUAL) 0 % (0-2); EOSINOPHILS % (MANUAL) 0 % (0-6); LYMPHOCYTES % (MANUAL) 0 % (13-45); MONOCYTES % (MANUAL) 3 % (3-13); SEGMENTED NEUTROPHILS % (MAN) 97 % (42-78); TOTAL CELLS COUNTED 100
[2019-11-25 10:46] LABS: ANISOCYTOSIS SLIGHT; BURR CELLS SLIGHT; OVALOCYTES 1+; PLATELET COMMENT DECREASED
[2019-11-25 10:48] LABS: PLATELET COUNT 14 10^3/uL (150-450)
[2019-11-25] MEDS: INSULIN REG, HUMAN 100 UNIT/ML 3 ML VIAL (PYX) SUBCUT SCH ×2 (11:30→18:30)
--- NOTE | 2019-11-25 11:38 | PDOC CONSULTATION ---
Consultation Consult Date: 11/25/19 Provider Consulted: DOMINIC REYNOSO Consult reason:: Abnormal EKG, abnormal echocardiogram History of Present Illness Admission Date/PCP: 11/23/19 22:[facility] Patient complains of: Unable to obtain history. Abnormal EKG and abnormal echocardiogram. History of Present Illness: FEDERICA HOLLAND is a 79 year old male I was asked to evaluate this patient by intensive care unit attending due to abnormal echocardiogram and abnormal EKG.Patient is a 79-year-old male with dementia was unable to relate any history. Patient apparently had dark stools and was unresponsive at presentation. Patient initially received blood. Please presently managed to the intensive care unit as a person and into mastication for COVID 19 viral infection. He is presently experiencing acute kidney injury and abnormal liver function tests. His troponins were mildly elevated. He had an undiagnosed femur fracture on the left side. He had mild rhabdomyolysis as well. An echocardiogram was performed on 11/24/2019 which showed left ventricular dysfunction with ejection fraction 35 to 40%. He does have moderate tricuspid regurgitation moderate pulmonary hypertension. He also has moderate mitral regurgitation there is no pericardial effusion His EKG was noted to be abnormal with absent P waves on some leads and also by telemetry but no significant ST-T changes. He is believed to be septic. His blood cultures are positive for Staphylococcus aureus. His urine is also positive for staph aureus. He is being managed for sepsis. Is not clear if he has any prior cardiac history. Family history cannot be obtained Review of systems cannot be obtained. Patient's mental status is very poor and he is not able to interact. Past Medical History Cardiac Medical History: Reports: Hyperlipidema, Hypertension Denies: Atrial Fibrillation, Congestive Heart Failure, Coronary Artery Disease, Myocardial Infarction, Peripheral Vascular Disease, Heart Murmur Pulmonary Medical History: Denies: Asthma, Pneumonia, Sleep Apnea Neurological Medical History: Denies: Seizures Endocrine Medical History: Reports: Diabetes Mellitus Type 2 Denies: Hyperthyroidism, Hypothyroidism Renal/ Medical History: Denies: End Stage Renal Disease GI Medical History: Denies: Crohn's Disease, Gastroesophageal Reflux Disease, Hiatal Hernia Musculoskeltal Medical History: Reports: Arthritis - knees Denies: Fibromyalgia Psychiatric Medical History: Reports: Depression, Post Traumatic Stress Disorder Denies: Bipolar Disorder, Dementia Hematology: Denies: Anemia, Sickle Cell Disease Past Surgical History Past Surgical History: Reports: Orthopedic Surgery - Right shoulder replacement, right knee replacement Denies: Appendectomy, Cholecystectomy, Colostomy, Coronary Artery Bypass Graft, Gastric Bypass Surgery, Herniorrhaphy, Pacemaker, Tonsillectomy Social History Lives with: Spouse/Significant other Smoking Status: Unknown if Ever Smoked Frequency of Alcohol Use: None Hx Recreational Drug Use: No Drugs: None Hx Prescription Drug Abuse: No - Advance Directive Resuscitation Status: Full Code Family History Family History: Reviewed & Not Pertinent Parental Family History Reviewed: No Children Family History Reviewed: NA Sibling(s) Family History Reviewed.: NA Medication/Allergy Home Medications: Lisinopril [Prinivil 40 mg Tablet] 40 mg PO DAILY 10/07/17 Atorvastatin Calcium [Lipitor 20 mg Tablet] 80 mg PO QHS 02/21/18 Acetaminophen [Pain Relief] 1,000 mg PO BIDP PRN 02/24/18 Donepezil HCl 10 mg PO DAILY 02/24/18 Rollins-3 Fatty Acids/Fish Oil [Fish Oil 1,000 mg Capsule] 1,000 mg PO BID 02/24/18 Cholecalciferol (Vitamin D3) [Vitamin D3 1000 Unit Tablet] 2,000 unit PO DAILY 11/24/19 Memantine HCl [Namenda 10 mg Tablet] 10 mg PO BID 11/24/19 Allergies/Adverse Reactions: No Known Allergies Allergy (Verified 02/28/18 08:46) Review of Systems ROS unobtainable: Due to mental status Physical Exam Vital Signs: Temp Pulse Resp BP Pulse Ox 98.8 F 72 15 108/50 L 100 11/25/19 08:00 11/25/19 10:00 11/25/19 10:00 11/25/19 10:00 11/25/19 10:00 Intake & Output 11/24/19 11/25/19 11/26/19 06:59 06:59 06:59 Intake Total 4552 5757 1292 Output Total 125 557 118 Balance 4427 5200 1174 Weight 79.7 kg 83.8 kg General appearance: PRESENT: no acute distress, cooperative, well-developed, well-nourished Head exam: PRESENT: atraumatic, normocephalic Eye exam: PRESENT: conjunctiva pale, EOMI Mouth exam: PRESENT: dry mucosa Cardiovascular exam: PRESENT: RRR, +S1, +S2, systolic murmur Pulses: PRESENT: normal radial pulses GI/Abdominal exam: PRESENT: soft Rectal exam: PRESENT: deferred Neurological exam: PRESENT: altered Skin exam: PRESENT: dry, intact Results Laboratory Results: 11/25/19 09:48 11/25/19 09:48 11/24/19 11/24/19 11/24/19 10:51 13:48 14:50 WBC RBC Hgb Hct MCV MCH MCHC RDW Plt Count Seg Neutrophils % Retic Count (auto) Carbonic Acid 0.98 L HCO3/H2CO3 Ratio 20:1 ABG pH 7.41 ABG pCO2 32.6 L ABG pO2 125.5 H ABG HCO3 20.0 ABG O2 Saturation 98.5 H ABG Base Excess -4.1 FiO2 4L Sodium 142.1 Potassium 3.9 D Chloride 111 H Carbon Dioxide 21 L Anion Gap 10 BUN 82 H Creatinine 3.38 H Est GFR ( Amer) 21 L Glucose 159 H Lactic Acid Calcium 7.1 L Magnesium Vitamin B12 Folate Urine Color DARK YELLOW Urine Appearance CLOUDY Urine pH 5.0 Ur Specific [place] 1.021 Urine Protein 30 H Urine Glucose (UA) NEGATIVE Urine Ketones NEGATIVE Urine Blood LARGE H Urine Nitrite NEGATIVE Ur Leukocyte Esterase NEGATIVE Urine WBC (Auto) 7 Urine RBC (Auto) 4 11/24/19 11/24/19 11/24/19 18:45 18:45 18:45 WBC RBC Hgb Hct MCV MCH MCHC RDW Plt Count Seg Neutrophils % Retic Count (auto) 0.23 L Carbonic Acid HCO3/H2CO3 Ratio ABG pH ABG pCO2 ABG pO2 ABG HCO3 ABG O2 Saturation ABG Base Excess FiO2 Sodium Potassium Chloride Carbon Dioxide Anion Gap BUN Creatinine Est GFR ( Amer) Glucose Lactic Acid Calcium Magnesium Vitamin B12 > 1000.0 H Folate 6.76 Urine Color YELLOW Urine Appearance CLOUDY Urine pH 5.0 Ur Specific [place] 1.019 Urine Protein 30 H Urine Glucose (UA) NEGATIVE Urine Ketones NEGATIVE Urine Blood LARGE H Urine Nitrite NEGATIVE Ur Leukocyte Esterase NEGATIVE Urine WBC (Auto) 7 Urine RBC (Auto) 4 11/24/19 11/25/19 11/25/19 22:13 01:17 01:45 WBC RBC Hgb Hct MCV MCH MCHC RDW Plt Count Seg Neutrophils % Retic Count (auto) Carbonic Acid HCO3/H2CO3 Ratio ABG pH ABG pCO2 ABG pO2 ABG HCO3 ABG O2 Saturation ABG Base Excess FiO2 Sodium 143.0 Potassium 3.5 L Chloride 112 H Carbon Dioxide 21 L Anion Gap 10 BUN 87 H Creatinine 3.14 H Est GFR ( Amer) 23 L Glucose 171 H Lactic Acid 2.9 H Calcium 7.0 L* Magnesium Vitamin B12 Folate Urine Color ARNALDO Urine Appearance CLOUDY Urine pH 5.0 Ur Specific [place] 1.018 Urine Protein 30 H Urine Glucose (UA) NEGATIVE Urine Ketones NEGATIVE Urine Blood LARGE H Urine Nitrite NEGATIVE Ur Leukocyte Esterase NEGATIVE Urine WBC (Auto) 2 Urine RBC (Auto) 0 11/25/19 11/25/19 11/25/19 04:15 09:48 09:48 WBC RBC Hgb Hct MCV MCH MCHC RDW Plt Count Seg Neutrophils % Retic Count (auto) Carbonic Acid HCO3/H2CO3 Ratio ABG pH ABG pCO2 ABG pO2 ABG HCO3 ABG O2 Saturation ABG Base Excess FiO2 Sodium 142.4 140.4 Potassium 3.4 L 3.4 L Chloride 112 H 108 H Carbon Dioxide 21 L 24 Anion Gap 9 8 BUN 88 H 91 H Creatinine 3.07 H 3.16 H Est GFR ( Amer) 24 L 23 L Glucose 180 H 352 H Lactic Acid 2.1 Calcium 7.0 L* 7.1 L Magnesium 2.3 2.3 Vitamin B12 Folate Urine Color Urine Appearance Urine pH Ur Specific [place] Urine Protein Urine Glucose (UA) Urine Ketones Urine Blood Urine Nitrite Ur Leukocyte Esterase Urine WBC (Auto) Urine RBC (Auto) 11/25/19 11/25/19 09:48 09:48 WBC 2.8 L RBC 3.08 L Hgb 8.9 L Hct 26.7 L MCV 87 MCH 28.8 MCHC 33.3 RDW 15.6 H Plt Count 14 L* D Seg Neutrophils % Not Reportable Retic Count (auto) Carbonic Acid HCO3/H2CO3 Ratio ABG pH ABG pCO2 ABG pO2 ABG HCO3 ABG O2 Saturation ABG Base Excess FiO2 Sodium Potassium Chloride Carbon Dioxide Anion Gap BUN Creatinine Est GFR ( Amer) Glucose Lactic Acid Calcium Magnesium Vitamin B12 Folate Urine Color ARNALDO Urine Appearance SLIGHTLY-CLOUDY Urine pH 5.0 Ur Specific [place] 1.021 Urine Protein 30 H Urine Glucose (UA) NEGATIVE Urine Ketones NEGATIVE Urine Blood LARGE H Urine Nitrite NEGATIVE Ur Leukocyte Esterase NEGATIVE Urine WBC (Auto) 4 Urine RBC (Auto) 1 11/24/19 14:47 Sputum Gram Stain - Final 11/24/19 14:47 Sputum Sputum Culture - Final 11/23/19 18:45 Blood Blood Culture (PCR) - Final Staphylococcus Aureus 11/23/19 18:45 Blood Blood Culture - Final Staphylococcus Aureus 11/23/19 17:41 Blood Blood Culture (PCR) - Final Staphylococcus Aureus 11/23/19 17:41 Blood Blood Culture - Final Staphylococcus Aureus 11/23/19 17:41 Catheterized Urine Urine Culture - Final Staphylococcus Aureus 11/23/19 11/23/19 11/24/19 17:41 17:41 00:28 Creatine Kinase 4086 H 5523 H CK-MB (CK-2) Troponin I 0.170 NT-Pro-B Natriuret Pep 11/24/19 11/24/19 11/24/19 00:28 03:20 03:20 Creatine Kinase CK-MB (CK-2) Troponin I 0.231 0.240 NT-Pro-B Natriuret Pep 1070 H 11/24/19 11/24/19 11/24/19 06:32 06:32 11:00 Creatine Kinase 3765 H CK-MB (CK-2) 23.10 H Troponin I 0.375 NT-Pro-B Natriuret Pep 11/24/19 11/24/19 11/24/19 14:50 18:45 22:13 Creatine Kinase CK-MB (CK-2) Troponin I 0.569 0.699 0.750 NT-Pro-B Natriuret Pep 6100 H 11/25/19 04:15 Creatine Kinase CK-MB (CK-2) Troponin I 0.743 NT-Pro-B Natriuret Pep EKG Comments: Twelve-lead EKG 11/24/2019. Independently viewed by me. Sinus rhythm, low amplitude P waves, 64 bpm, low voltage, borderline R wave progression in the anterior leads Twelve-lead EKG and 02/02/2020. Independently viewed by me. Sinus rhythm, 57 bpm, low voltage, borderline prolonged QT, Profound thrombocytopenia with platelets of 14 hypocalcemia with calcium at 7.1 Transthoracic echocardiogram 11/24/2019. Left ventricular ejection fraction is moderately reduced and is estimated at 35 to 40% There is moderate mitral vegetation There is moderate tricuspid regurgitation Moderate pulmonary hypertension There is no pericardial effusion Impressions: Chest CT 11/23/19 20:09 IMPRESSION: Bibasilar airspace disease and adjacent effusions. Pneumonia could have this appearance. Given bibasilar distribution, aspiration is a consideration. No high-grade bowel obstruction. Moderate hard stool within the colon. Acute intertrochanteric fracture left femur. Study is degraded by artifact from the patient's arms and motion. Additionally given stranding within all the imaged fat, tissue planes are difficult to discern.. Head CT 11/23/19 20:09 IMPRESSION: Imaging is degraded by patient motion, with resultant artifact. The best possible images were obtained. No acute intracranial process. Age-related involutional changes are identified. Presumed old small vessel ischemic changes are seen predominantly in a periventricular distribution.. The cause of the patient's metal status change is not identified on this examination. Abdomen/Pelvis CT 11/23/19 20:10 IMPRESSION: Bibasilar airspace disease and adjacent effusions. Pneumonia could have this appearance. Given bibasilar distribution, aspiration is a consideration. No high-grade bowel obstruction. Moderate hard stool within the colon. Acute intertrochanteric fracture left femur. Study is degraded by artifact from the patient's arms and motion. Additionally given stranding within all the imaged fat, tissue planes are difficult to discern.. Cervical Spine CT 11/23/19 22:17 IMPRESSION: No acute fracture or subluxation of the cervical spine. Femur X-Ray 11/23/19 22:43 IMPRESSION: Intertrochanteric fracture. copyright 2010 [employer]- All Rights Reserved Pelvis X-Ray 11/23/19 22:43 IMPRESSION: Intertrochanteric fracture of the left hip. copyright 2010 [employer]- All Rights Reserved Chest X-Ray 11/24/19 04:00 IMPRESSION: Right middle lobe peripheral opacification similar to that seen on comparison CT imaging. No acute findings. KUB X-Ray 11/24/19 15:22 IMPRESSION: 1. Partially visualized nasogastric tube, tip overlies the fundus -proximal body of the stomach. Assessment & Plan - Diagnosis (1) LV dysfunction Is this a current diagnosis for this admission?: Yes Plan: Thoracic echocardiogram with evidence of left ventricular dysfunction with ejection fraction estimated at 35 to 40% Does not clear if patient has prior history of this In the context of ongoing illness with sepsis and bacteremia this may be sepsis induced LV dysfunction Nevertheless his echo needs to be followed and should be repeated if he gets better. He may require ischemic evaluation for LV dysfunction etiology. For the moment we will have to watch volume status and pursue guideline directed medical therapy including beta-blockade and DELILAH inhibitor as feasible but multiple medical problems and ongoing illness limit this significantly. (2) Mitral regurgitation Qualifiers: Cardiac valve disease etiology: nonrheumatic Qualified Code(s): I34.0 - Nonrheumatic mitral (valve) insufficiency Is this a current diagnosis for this admission?: Yes Plan: Moderate mitral regurgitation This is in the setting of sepsis induced LV dysfunction. He may have underlying dilated cardiomyopathy that was not diagnosed or followed. (3) Elevated troponin Is this a current diagnosis for this admission?: Yes Plan: Multi-factorial. Ongoing sepsis Profound thrombocytopenia limits therapy significantly. Ischemic evaluation later if feasible. This is especially necessary given LV dysfunction and especially if LV function does not improve after correction of sepsis. Repeat echocardiogram should be performed later once the patient is better. (4) MSSA bacteremia Is this a current diagnosis for this admission?: Yes Plan: Positive bacteremia with urine culture also positive. May require transesophageal echocardiogram based on clinical course. Presently being managed with antibiotics. Will follow.
[2019-11-25 12:06] LABS: ANION GAP 9 (5-19); BLOOD UREA NITROGEN 93 mg/dL (7-20); CALCIUM 7.3 mg/dL (8.4-10.2); CARBON DIOXIDE 22 mmol/L (22-30); CHLORIDE 109 mmol/L (98-107); GLUCOSE 322 mg/dL (75-110); POTASSIUM 3.5 mmol/L (3.6-5.0)
[2019-11-25 12:20] LABS: PREALBUMIN < 3.0 mg/dL (17.6-36.0)
[2019-11-25] MEDS ORDERED: DEXTROSE 5%-WATER 250 ML with VASOPRESSIN 100 UNIT IV PRN ×2 (12:29)
[2019-11-25] MEDS ORDERED: NAFCILLIN SODIUM 2 GM in DEXTROSE 5%-WATER 100 ML IV SCH (14:00)
[2019-11-25] MEDS ORDERED: FUROSEMIDE INJ/PF 20 MG/2 ML SDV IV ONE (15:00)
[2019-11-25] MEDS: NORMAL SALINE 250 ML with FUROSEMIDE 250 MG IV PRN ×2 (15:21)
[2019-11-25] MEDS: POTASSIUM CHLORIDE 20 MEQ PACKET NG SCH (15:21)
[2019-11-25 16:22] LABS: APPEARANCE,URINE CLOUDY; BILIRUBIN,URINE NEGATIVE (NEGATIVE); COLOR,URINE AMBER; GLUCOSE, URINE 50 mg/dL (NEGATIVE); KETONES,URINE NEGATIVE (NEGATIVE); LEUKOCYTE ESTERASE,URINE NEGATIVE (NEGATIVE); NITRITE,URINE NEGATIVE (NEGATIVE); PROTEIN,URINE 30 mg/dL (NEGATIVE); URINE SPECIFIC GRAVITY 1.019
[2019-11-25] MEDS: NAFCILLIN SODIUM 2 GM in DEXTROSE 5%-WATER 100 ML IV SCH ×2 (16:50→20:30)
[2019-11-25] MEDS ORDERED: POTASSIUM PHOS,M-BASIC-D-BASIC 15 MMOL in NORMAL SALINE 250 ML IV ONE (17:46)
[2019-11-25] MEDS ORDERED: VANCOMYCIN HCL 1,250 MG in DEXTROSE 5%-WATER 250 ML IV SCH (18:00)
--- NOTE | 2019-11-25 18:26 | PDOC CRITICAL CARE PROG REPORT ---
General Date:: 11/25/19 ICU Day:: 2 Hospital Day:: 2 Resuscitation Status: Full Code Events in the past 12 to 24 Hours:: This 79-year-old -[place] male presented to [facility] emergency department on 11/24/2019 via EMS for altered mental status/unresponsiveness. Per the patient's , he has been bedridden for several months after sustaining multiple falls. He also has had dark stools for the past several days. In the emergency department, he was found to be unresponsive and bradycardic. He did receive blood transfusions and was noted to become more responsive. Of note, the patient has advanced dementia at base line. He was admitted to the ICU for shock, NOS. ER evaluation identified elevation of creatine kinase, raising concern for rhabdomyolysis. 11/24: Blood cultures was added for MSSA. Notably, urine culture is also positive for S. aureus, raising concern for the possibility of endocarditis. No obvious vegetations on 2D echo. He is on Zosyn/vancomycin for empiric antibiot ic therapy. He is currently on dopamine, norepinephrine and vasopressin infusions. He is quite somnolent but arousable to noxious stimuli. He perseverates and says "oh, yeah" to everything. He is on 4 LPM via nasal cannula. Laboratory evaluation revealed elevated troponins which have peaked and are now downtrending. The creatine kinase was elevated but did not exceed the threshold for lashaun elisha rhabdomyolysis, compatible more with muscle injury. Review of systems relevant to events:: Neurologic: Altered mental status Cardiovascular: Shock, bradycardia Genitourinary: Urinary tract infection Hematologic: Pancytopenia, MSSA bacteremia Reason for ICU Addmission:: Shock (NOS), MARY 2/2 rhabdomyolysis, pneumonia - Medications: Medications reviewed and adjusted accordingly: Yes Vasopressors:: Dopamine Norepinephrine Vasopressin Physical Exam Vital Signs: Temp Pulse Resp BP Pulse Ox 98.8 F 63 17 99/47 L 99 11/25/19 08:00 11/25/19 08:00 11/25/19 08:00 11/25/19 08:00 11/25/19 08:00 Intake & Output 11/24/19 11/25/19 11/26/19 06:59 06:59 06:59 Intake Total 0214 8182 1010 Output Total 591 557 70 Balance 4455 5959 940 Weight 79.7 kg 83.8 kg Weight/Height Weight 83.8 kg Height 1.83 m General appearance: PRESENT: no acute distress, well-developed, well-nourished Head exam: PRESENT: atraumatic, normocephalic Eye exam: PRESENT: conjunctiva pink, EOMI, PERRLA. ABSENT: scleral icterus Mouth exam: PRESENT: moist, tongue midline Neck exam: ABSENT: carotid bruit, JVD, lymphadenopathy, thyromegaly Respiratory exam: PRESENT: clear to auscultation jeaneth. ABSENT: rales, rhonchi, wheezes Cardiovascular exam: PRESENT: RRR, systolic murmur. ABSENT: diastolic murmur, rubs Pulses: PRESENT: normal dorsalis pedis pul GI/Abdominal exam: PRESENT: normal bowel sounds, soft. ABSENT: distended, guarding, mass, organolmegaly, rebound, tenderness Extremities exam: PRESENT: full ROM. ABSENT: calf tenderness, clubbing, pedal edema Neurological exam: PRESENT: altered, reflexes normal, CN II-XII grossly intact. ABSENT: motor sensory deficit Psychiatric exam: ABSENT: agitated, anxious Skin exam: PRESENT: abrasion - Right pretibial, dry, warm. ABSENT: cyanosis, rash Tubes/Lines: PRESENT: Central Line - Left femoral (11/22) Laboratory/Radiographs Laboratory Results: 11/24/19 11/24/19 11/24/19 10:51 13:48 14:50 Retic Count (auto) Carbonic Acid 0.98 L HCO3/H2CO3 Ratio 20:1 ABG pH 7.41 ABG pCO2 32.6 L ABG pO2 125.5 H ABG HCO3 20.0 ABG O2 Saturation 98.5 H ABG Base Excess -4.1 FiO2 4L Sodium 142.1 Potassium 3.9 D Chloride 111 H Carbon Dioxide 21 L Anion Gap 10 BUN 82 H Creatinine 3.38 H Est GFR ( Amer) 21 L Glucose 159 H Lactic Acid Calcium 7.1 L Magnesium Vitamin B12 Folate Urine Color DARK YELLOW Urine Appearance CLOUDY Urine pH 5.0 Ur Specific Thebes 1.021 Urine Protein 30 H Urine Glucose (UA) NEGATIVE Urine Ketones NEGATIVE Urine Blood LARGE H Urine Nitrite NEGATIVE Ur Leukocyte Esterase NEGATIVE Urine WBC (Auto) 7 Urine RBC (Auto) 4 11/24/19 11/24/19 11/24/19 18:45 18:45 18:45 Retic Count (auto) 0.23 L Carbonic Acid HCO3/H2CO3 Ratio ABG pH ABG pCO2 ABG pO2 ABG HCO3 ABG O2 Saturation ABG Base Excess FiO2 Sodium Potassium Chloride Carbon Dioxide Anion Gap BUN Creatinine Est GFR ( Amer) Glucose Lactic Acid Calcium Magnesium Vitamin B12 > 1000.0 H Folate 6.76 Urine Color YELLOW Urine Appearance CLOUDY Urine pH 5.0 Ur Specific Thebes 1.019 Urine Protein 30 H Urine Glucose (UA) NEGATIVE Urine Ketones NEGATIVE Urine Blood LARGE H Urine Nitrite NEGATIVE Ur Leukocyte Esterase NEGATIVE Urine WBC (Auto) 7 Urine RBC (Auto) 4 11/24/19 11/25/19 11/25/19 22:13 01:17 01:45 Retic Count (auto) Carbonic Acid HCO3/H2CO3 Ratio ABG pH ABG pCO2 ABG pO2 ABG HCO3 ABG O2 Saturation ABG Base Excess FiO2 Sodium 143.0 Potassium 3.5 L Chloride 112 H Carbon Dioxide 21 L Anion Gap 10 BUN 87 H Creatinine 3.14 H Est GFR ( Amer) 23 L Glucose 171 H Lactic Acid 2.9 H Calcium 7.0 L* Magnesium Vitamin B12 Folate Urine Color ARNALDO Urine Appearance CLOUDY Urine pH 5.0 Ur Specific Thebes 1.018 Urine Protein 30 H Urine Glucose (UA) NEGATIVE Urine Ketones NEGATIVE Urine Blood LARGE H Urine Nitrite NEGATIVE Ur Leukocyte Esterase NEGATIVE Urine WBC (Auto) 2 Urine RBC (Auto) 0 11/25/19 04:15 Retic Count (auto) Carbonic Acid HCO3/H2CO3 Ratio ABG pH ABG pCO2 ABG pO2 ABG HCO3 ABG O2 Saturation ABG Base Excess FiO2 Sodium 142.4 Potassium 3.4 L Chloride 112 H Carbon Dioxide 21 L Anion Gap 9 BUN 88 H Creatinine 3.07 H Est GFR ( Amer) 24 L Glucose 180 H Lactic Acid Calcium 7.0 L* Magnesium 2.3 Vitamin B12 Folate Urine Color Urine Appearance Urine pH Ur Specific Thebes Urine Protein Urine Glucose (UA) Urine Ketones Urine Blood Urine Nitrite Ur Leukocyte Esterase Urine WBC (Auto) Urine RBC (Auto) 11/23/19 18:45 Blood Blood Culture (PCR) - Final Staphylococcus Aureus 11/23/19 18:45 Blood Blood Culture - Final Staphylococcus Aureus 11/23/19 17:41 Blood Blood Culture (PCR) - Final Staphylococcus Aureus 11/23/19 17:41 Blood Blood Culture - Final Staphylococcus Aureus 11/23/19 17:41 Catheterized Urine Urine Culture - Final Staphylococcus Aureus 11/23/19 11/23/19 11/24/19 17:41 17:41 00:28 Creatine Kinase 4086 H 5523 H CK-MB (CK-2) Troponin I 0.170 NT-Pro-B Natriuret Pep 11/24/19 11/24/19 11/24/19 00:28 03:20 03:20 Creatine Kinase CK-MB (CK-2) Troponin I 0.231 0.240 NT-Pro-B Natriuret Pep 1070 H 11/24/19 11/24/19 11/24/19 06:32 06:32 11:00 Creatine Kinase 3765 H CK-MB (CK-2) 23.10 H Troponin I 0.375 NT-Pro-B Natriuret Pep 11/24/19 11/24/19 11/24/19 14:50 18:45 22:13 Creatine Kinase CK-MB (CK-2) Troponin I 0.569 0.699 0.750 NT-Pro-B Natriuret Pep 6100 H 11/25/19 04:15 Creatine Kinase CK-MB (CK-2) Troponin I 0.743 NT-Pro-B Natriuret Pep Impressions: Chest CT 11/23/19 20:09 IMPRESSION: Bibasilar airspace disease and adjacent effusions. Pneumonia could have this appearance. Given bibasilar distribution, aspiration is a consideration. No high-grade bowel obstruction. Moderate hard stool within the colon. Acute intertrochanteric fracture left femur. Study is degraded by artifact from the patient's arms and motion. Additionally given stranding within all the imaged fat, tissue planes are difficult to discern.. Head CT 11/23/19 20:09 IMPRESSION: Imaging is degraded by patient motion, with resultant artifact. The best possible images were obtained. No acute intracranial process. Age-related involutional changes are identified. Presumed old small vessel ischemic changes are seen predominantly in a periventricular distribution.. The cause of the patient's metal status change is not identified on this examination. Abdomen/Pelvis CT 11/23/19 20:10 IMPRESSION: Bibasilar airspace disease and adjacent effusions. Pneumonia could have this appearance. Given bibasilar distribution, aspiration is a consideration. No high-grade bowel obstruction. Moderate hard stool within the colon. Acute intertrochanteric fracture left femur. Study is degraded by artifact from the patient's arms and motion. Additionally given stranding within all the imaged fat, tissue planes are difficult to discern.. Cervical Spine CT 11/23/19 22:17 IMPRESSION: No acute fracture or subluxation of the cervical spine. Femur X-Ray 11/23/19 22:43 IMPRESSION: Intertrochanteric fracture. copyright 2010 [employer]- All Rights Reserved Pelvis X-Ray 11/23/19 22:43 IMPRESSION: Intertrochanteric fracture of the left hip. copyright 2010 [employer]- All Rights Reserved Chest X-Ray 11/24/19 04:00 IMPRESSION: Right middle lobe peripheral opacification similar to that seen on comparison CT imaging. No acute findings. KUB X-Ray 11/24/19 15:22 IMPRESSION: 1. Partially visualized nasogastric tube, tip overlies the fundus -proximal body of the stomach. All labs, radiographs, diagnostic studies and EKGs were personally reviewed: Yes In addition, reports of radiographic and diagnostic studies were read: Yes Assessment and Plan - Diagnosis (1) Septic shock Is this a current diagnosis for this admission?: Yes Plan: Continue IV fluids (currently on LR at 200 mL/h). Titrate vasopressors to maintain MAP 65: Wean norepinephrine as tolerated; titrate dopamine; continue vasopressin. (2) MSSA bacteremia Is this a current diagnosis for this admission?: Yes Plan: Continue current empiric Zosyn/vancomycin until all culture/sensitivity data have finalized. If MSSA is the only identified pathogen, will change to nafcillin 2 g IV every 4 hours. (3) Cardiomyopathy Qualifiers: Cardiomyopathy type: unspecified Qualified Code(s): I42.9 - Cardiomyopathy, unspecified Is this a current diagnosis for this admission?: Yes Plan: LVEF 35-40% on 2D echo (11/23) with global hypokinesis, grade 2/4 diastolic dysfunction, moderate mitral regurgitation, moderate tricuspid regurgitation, pulmonary hypertension. (4) Elevated troponin Is this a current diagnosis for this admission?: Yes Plan: Cardiology input appreciated. On aspirin. Profound thrombocytopenia contraindicates initiation of heparin infusion. (5) Acute kidney injury Is this a current diagnosis for this admission?: Yes Plan: Start furosemide infusion. (6) Pancytopenia Is this a current diagnosis for this admission?: Yes Plan: * Reticulocyte count 0.007. * Vitamin B12 high. Folate within normal limits. * Check prealbumin. * Check VINICIO, rheumatoid factor * Check HIV, EBV, hepatitis panels. * Check leukemia/lymphoma panel by flow cytometry. * If the patient does not begin improving with initiation of nutrition and treatment for his MSSA bacteremia, hematology consultation will be needed. (7) Diabetic foot ulcers Qualifiers: Diabetic foot ulcer location: midfoot Diabetes mellitus type: type 2 Laterality: right Non-pressure ulcer stage: limited to breakdown of skin Qualified Code(s): E11.621 - Type 2 diabetes mellitus with foot ulcer; L97.411 - Non-pressure chronic ulcer of right heel and midfoot limited to breakdown of skin Is this a current diagnosis for this admission?: Yes (8) Diabetes mellitus type 2 in nonobese Is this a current diagnosis for this admission?: Yes Plan: Accu-Cheks every 6 hours. Sliding scale insulin coverage. (9) Intertrochanteric fracture of left femur Qualifiers: Encounter type: subsequent encounter Fracture type: closed Fracture alignment: nondisplaced Fracture healing: with routine healing Qualified Code(s): S72.145D - Nondisplaced intertrochanteric fracture of left femur, subsequent encounter for closed fracture with routine healing Is this a current diagnosis for this admission?: Yes Plan: Orthopedic surgery input appreciated. Critical Time Critical Time (minutes): 120 Level of Care: ICU -: 1. The care of a critical patient is a dynamic process. 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 The timeframe for treatments given in order is not necessarily the actual time these treatments may have been done. 2. This patient requires critical care secondary to ongoing requirements for therapy not offered or safe outside the critical care environment. Transfer to a lower level of care will result in altered life or limb morbidity and mortality. 3. Multidisciplinary rounds completed. 4. ABCDE bundle addressed.
[2019-11-25 18:42] LABS: APPEARANCE,URINE TURBID; BILIRUBIN,URINE NEGATIVE (NEGATIVE); CALCIUM OXALATE CRYSTALS,URINE MODERATE /HPF; COLOR,URINE AMBER; GLUCOSE, URINE NEGATIVE (NEGATIVE); KETONES,URINE NEGATIVE (NEGATIVE); LEUKOCYTE ESTERASE,URINE NEGATIVE (NEGATIVE); NITRITE,URINE NEGATIVE (NEGATIVE); PROTEIN,URINE NEGATIVE (NEGATIVE); URINE SPECIFIC GRAVITY 1.013; UROBILINOGEN,URINE NEGATIVE mg/dL (<2.0)
[2019-11-25] MEDS ORDERED: DEXTROSE 5%-WATER 250 ML with PHENYLEPHRINE HCL 40 MG IV PRN ×2 (18:51)
[2019-11-25 18:54] LABS: ANION GAP 9 (5-19); BLOOD UREA NITROGEN 95 mg/dL (7-20); CALCIUM 7.2 mg/dL (8.4-10.2); CARBON DIOXIDE 22 mmol/L (22-30); CHLORIDE 110 mmol/L (98-107); GLUCOSE 230 mg/dL (75-110); POTASSIUM 3.9 mmol/L (3.6-5.0)
[2019-11-25 19:12] LABS: ARTERIAL BLOOD BASE EXCESS -4.6 mmol/L; ARTERIAL BLOOD H2CO3 0.93 mmol/L (1.05-1.35); ARTERIAL BLOOD HCO3 19.2 mmol/L (20-24); ARTERIAL BLOOD PCO2 30.8 mmHg (35-45); ARTERIAL BLOOD PH 7.41 (7.35-7.45); ARTERIAL BLOOD PO2 105.3 mmHg (80-100); ARTERIAL BLOOD TOTAL CO2 20.1 mmol/L (23-27)
[2019-11-25 19:15] LABS: ARTERIAL BLOOD FIO2 4 L
[2019-11-25] MEDS: DOPAMINE HCL/DEXTROSE 5%-WATER 800 MG/250 ML RTUINJ IV PRN (21:33)
[2019-11-26] MEDS: NAFCILLIN SODIUM 2 GM in DEXTROSE 5%-WATER 100 ML IV SCH ×6 (01:25→21:09)
[2019-11-26] MEDS: INSULIN REG, HUMAN 100 UNIT/ML 3 ML VIAL (PYX) SUBCUT SCH ×4 (01:25→17:06)
[2019-11-26] MEDS: POTASSIUM CHLORIDE 20 MEQ PACKET NG SCH ×3 (01:26→21:12)
[2019-11-26 02:10] LABS: ANION GAP 11 (5-19); BLOOD UREA NITROGEN 96 mg/dL (7-20); CARBON DIOXIDE 19 mmol/L (22-30); CHLORIDE 111 mmol/L (98-107); GLUCOSE 231 mg/dL (75-110); POTASSIUM 3.3 mmol/L (3.6-5.0)
[2019-11-26] MEDS ORDERED: CALCIUM GLUCONATE 1000 MG/10 ML INJ IV ONE (05:40)
[2019-11-26] MEDS ORDERED: SODIUM BICARBONATE 8.4% INJ 50 MEQ/50 ML DISP.SYRIN IV ONE (05:41)
[2019-11-26] MEDS ORDERED: POTASSI CL 20 MEQ/50 ML RIDER 20 MEQ/50 ML RTUPB IV SCH (05:45)
[2019-11-26] MEDS ORDERED: CALCIUM GLUCONATE 1 GM/NS 50 ML RTU IV ONE (06:00)
[2019-11-26 06:33] LABS: AMORPHOUS SEDIMENT,URINE TRACE /HPF; APPEARANCE,URINE CLEAR; BILIRUBIN,URINE NEGATIVE (NEGATIVE); COLOR,URINE YELLOW; GLUCOSE, URINE NEGATIVE (NEGATIVE); KETONES,URINE NEGATIVE (NEGATIVE); LEUKOCYTE ESTERASE,URINE NEGATIVE (NEGATIVE); NITRITE,URINE NEGATIVE (NEGATIVE); PROTEIN,URINE NEGATIVE (NEGATIVE); UROBILINOGEN,URINE NEGATIVE mg/dL (<2.0)
[2019-11-26 06:39] LABS: HEMATOCRIT 28.3 % (37.9-51.0); HEMOGLOBIN 9.7 g/dL (13.5-17.0); MEAN CORPUSCULAR HEMOGLOBIN 29.5 pg (27.0-33.4); MEAN CORPUSCULAR HGB CONC 34.4 g/dL (32.0-36.0); MEAN CORPUSCULAR VOLUME 86 fl (80-97); RED BLOOD COUNT 3.29 10^6/uL (4.35-5.55); RED CELL DISTRIBUTION WIDTH 15.6 % (11.5-14.0); WHITE BLOOD COUNT 5.2 10^3/uL (4.0-10.5)
[2019-11-26 06:54] LABS: ANION GAP 8 (5-19); BLOOD UREA NITROGEN 104 mg/dL (7-20); CALCIUM 7.3 mg/dL (8.4-10.2); CARBON DIOXIDE 23 mmol/L (22-30); CHLORIDE 111 mmol/L (98-107); GLUCOSE 218 mg/dL (75-110); POTASSIUM 3.6 mmol/L (3.6-5.0)
[2019-11-26 07:24] LABS: ABSOLUTE LYMPHOCYTES# (MANUAL) 0.2 10^3/uL (0.5-4.7); ABSOLUTE MONOCYTES # (MANUAL) 0.2 10^3/uL (0.1-1.4); BAND NEUTROPHILS % (MANUAL) 3 % (3-5); BASOPHILS % (MANUAL) 0 % (0-2); EOSINOPHILS % (MANUAL) 0 % (0-6); LYMPHOCYTES % (MANUAL) 3 % (13-45); MONOCYTES % (MANUAL) 3 % (3-13); SEGMENTED NEUTROPHILS % (MAN) 91 % (42-78); TOTAL CELLS COUNTED 100
[2019-11-26 07:27] LABS: ANISOCYTOSIS SLIGHT; BURR CELLS 2+
[2019-11-26 07:28] LABS: PLATELET COMMENT DECREASED
[2019-11-26 07:31] LABS: PLATELET COUNT 11 10^3/uL (150-450)
[2019-11-26] MEDS: DOPAMINE HCL/DEXTROSE 5%-WATER 800 MG/250 ML RTUINJ IV PRN (09:21)
[2019-11-26] MEDS: PANTOPRAZOLE SODIUM 40 MG VIAL IV SCH (09:21)
[2019-11-26] MEDS ORDERED: ALBUTEROL SULFATE 0.083% NEB 2.5 MG/3 ML AMPUL NEB ONE (10:35)
[2019-11-26 11:42] LABS: ANION GAP 11 (5-19); BLOOD UREA NITROGEN 101 mg/dL (7-20); CARBON DIOXIDE 20 mmol/L (22-30); CHLORIDE 110 mmol/L (98-107); GLUCOSE 183 mg/dL (75-110); POTASSIUM 3.9 mmol/L (3.6-5.0)
[2019-11-26 11:54] LABS: CALCIUM 6.6 mg/dL (8.4-10.2)
[2019-11-26] MEDS ORDERED: ALBUTEROL SULFATE 0.083% NEB 2.5 MG/3 ML AMPUL NEB SCH (14:00)
[2019-11-26] MEDS ORDERED: CALCIUM GLUC IN NACL, ISO-OSM 1 GM/50 ML RTUPB IV ONE (16:00)
--- NOTE | 2019-11-26 16:09 | RADIOLOGY REPORT (SQ) ---
EXAM DESCRIPTION: FOREARM RIGHT; HUMERUS RIGHT IMAGES COMPLETED DATE/TIME: 11/26/2019 3:23 pm REASON FOR STUDY: pain; pain, fall COMPARISON: None. NUMBER OF VIEWS: Four views. TECHNIQUE: Two radiographic images acquired of the right humerus and right forearm, including elbow and wrist in at least one projection. LIMITATIONS: None. FINDINGS: MINERALIZATION: Normal. BONES: No acute fracture. No worrisome bone lesions. SOFT TISSUES: Vascular calcifications. OTHER: Advanced elbow osteoarthritis. IMPRESSION: No fracture. TECHNICAL DOCUMENTATION: JOB ID: [id number] 2010 [employer]- All Rights Reserved Reading location - IP/workstation name: [email or web address]
--- NOTE | 2019-11-26 16:09 | RADIOLOGY REPORT (SQ) ---
EXAM DESCRIPTION: FOREARM RIGHT; HUMERUS RIGHT IMAGES COMPLETED DATE/TIME: 11/26/2019 3:23 pm REASON FOR STUDY: pain; pain, fall COMPARISON: None. NUMBER OF VIEWS: Four views. TECHNIQUE: Two radiographic images acquired of the right humerus and right forearm, including elbow and wrist in at least one projection. LIMITATIONS: None. FINDINGS: MINERALIZATION: Normal. BONES: No acute fracture. No worrisome bone lesions. SOFT TISSUES: Vascular calcifications. OTHER: Advanced elbow osteoarthritis. IMPRESSION: No fracture. TECHNICAL DOCUMENTATION: JOB ID: [id number] 2010 [employer] All Rights Reserved Reading location - IP/workstation name: [email or web address]
[2019-11-26 17:10] LABS: HEMATOCRIT 26.9 % (37.9-51.0); HEMOGLOBIN 9.3 g/dL (13.5-17.0); MEAN CORPUSCULAR HEMOGLOBIN 29.2 pg (27.0-33.4); MEAN CORPUSCULAR HGB CONC 34.5 g/dL (32.0-36.0); MEAN CORPUSCULAR VOLUME 85 fl (80-97); RED BLOOD COUNT 3.18 10^6/uL (4.35-5.55); RED CELL DISTRIBUTION WIDTH 15.6 % (11.5-14.0); WHITE BLOOD COUNT 5.9 10^3/uL (4.0-10.5)
[2019-11-26 17:30] LABS: PLATELET COUNT 10 10^3/uL (150-450)
[2019-11-26] MEDS ORDERED: NORMAL SALINE 250 ML IV PRN (17:34)
[2019-11-26] MEDS: NORMAL SALINE 250 ML with FUROSEMIDE 250 MG IV PRN ×2 (18:17)
--- NOTE | 2019-11-26 19:57 | PDOC CRITICAL CARE PROG REPORT ---
General Date:: 11/26/19 ICU Day:: 3 Hospital Day:: 3 Resuscitation Status: Full Code Events in the past 12 to 24 Hours:: This 79-year-old -French male presented to [facility] emergency department on 11/24/2019 via EMS for altered mental status/unresponsiveness. Per the patient's , he has been bedridden for several months after sustaining multiple falls. He also has had dark stools for the past several days. In the emergency department, he was found to be unresponsive and bradycardic. He did receive blood transfusions and was noted to become more responsive. Of note, the patient has advanced dementia at base line. He was admitted to the ICU for shock, NOS. ER evaluation identified elevation of creatine kinase, raising concern for rhabdomyolysis. 11/24: Blood cultures was positive for MSSA. Notably, urine culture is also positive for S. aureus, raising concern for the possibility of endocarditis. No obvious vegetations on 2D echo. He is on Zosyn/vancomycin for empiric antib iotic therapy. He is currently on dopamine, norepinephrine and vasopressin infusions. He is quite somnolent but arousable to noxious stimuli. He perseverates and says "oh, yeah" to everything. He is on 4 LPM via nasal cannula. Laboratory evaluation revealed elevated troponins which have peaked and are now downtrending. The creatine kinase was elevated but did not exceed the threshold for lashaun elisha rhabdomyolysis, compatible more with muscle injury. 11/25: On nafcillin 2 g IV every 4 hours for MSSA bacteremia. Repeat cultures pending. No obvious vegetations on 2D echo. He is on room air. He is currently on dopamine and vasopressin. Off norepinephrine. Easily arousable. Advanced dementia. Cheynes-Fowler respirations. Review of systems relevant to events:: Neurologic: Altered mental status Cardiovascular: Shock, bradycardia Genitourinary: Urinary tract infection Hematologic: Pancytopenia, MSSA bacteremia Reason for ICU Addmission:: Shock (NOS), MARY 2/2 rhabdomyolysis, pneumonia - Medications: Medications reviewed and adjusted accordingly: Yes Vasopressors:: Dopamine Vasopressin Physical Exam Vital Signs: Temp Pulse Resp BP Pulse Ox 97.5 F 67 16 113/55 L 94 11/26/19 08:00 11/26/19 08:00 11/26/19 08:00 11/26/19 08:00 11/26/19 08:00 Intake & Output 11/25/19 11/26/19 11/27/19 06:59 06:59 06:59 Intake Total 5757 1971 420 Output Total 551 1419 215 Balance 5205 552 205 Weight 83.8 kg 88.6 kg Weight/Height Weight 88.6 kg Height 1.83 m General appearance: PRESENT: no acute distress, well-developed, well-nourished Head exam: PRESENT: atraumatic, normocephalic Eye exam: PRESENT: conjunctiva pink, EOMI, PERRLA. ABSENT: scleral icterus Mouth exam: PRESENT: moist, tongue midline Neck exam: ABSENT: carotid bruit, JVD, lymphadenopathy, thyromegaly Respiratory exam: PRESENT: clear to auscultation jeaneth, unlabored - Cheynes-Fowler respirations. ABSENT: rales, rhonchi, wheezes Cardiovascular exam: PRESENT: bradycardia, RRR, systolic murmur. ABSENT: ginny stolic murmur, rubs Pulses: PRESENT: normal dorsalis pedis pul GI/Abdominal exam: PRESENT: normal bowel sounds, soft. ABSENT: distended, guarding, mass, organolmegaly, rebound, tenderness Extremities exam: PRESENT: full ROM, pedal edema. ABSENT: calf tenderness, clubbing Musculoskeletal exam: PRESENT: normal inspection. ABSENT: deformity Neurological exam: PRESENT: altered, reflexes normal, CN II-XII grossly intact. ABSENT: motor sensory deficit Psychiatric exam: ABSENT: agitated, anxious Skin exam: PRESENT: other - Right diabetic foot ulcer. Left foot deep tissue injuries. Tubes/Lines: PRESENT: Central Line - Left femoral Laboratory/Radiographs Laboratory Results: 11/26/19 06:16 11/26/19 06:16 11/25/19 11/25/19 11/25/19 09:48 09:48 09:48 WBC 2.8 L RBC 3.08 L Hgb 8.9 L Hct 26.7 L MCV 87 MCH 28.8 MCHC 33.3 RDW 15.6 H Plt Count 14 L* D Seg Neutrophils % Not Reportable Carbonic Acid HCO3/H2CO3 Ratio ABG pH ABG pCO2 ABG pO2 ABG HCO3 ABG O2 Saturation ABG Base Excess FiO2 Sodium 140.4 Potassium 3.4 L Chloride 108 H Carbon Dioxide 24 Anion Gap 8 BUN 91 H Creatinine 3.16 H Est GFR ( Amer) 23 L Glucose 352 H Lactic Acid 2.1 Calcium 7.1 L Ionized Calcium Funmi Phosphorus Magnesium 2.3 Prealbumin Urine Color Urine Appearance Urine pH Ur Specific Smoot Urine Protein Urine Glucose (UA) Urine Ketones Urine Blood Urine Nitrite Ur Leukocyte Esterase Urine WBC (Auto) Urine RBC (Auto) 11/25/19 11/25/19 11/25/19 09:48 11:24 11:24 WBC RBC Hgb Hct MCV MCH MCHC RDW Plt Count Seg Neutrophils % Carbonic Acid HCO3/H2CO3 Ratio ABG pH ABG pCO2 ABG pO2 ABG HCO3 ABG O2 Saturation ABG Base Excess FiO2 Sodium 139.7 Potassium 3.5 L Chloride 109 H Carbon Dioxide 22 Anion Gap 9 BUN 93 H Creatinine 3.09 H Est GFR ( Amer) 24 L Glucose 322 H Lactic Acid Calcium 7.3 L Ionized Calcium Funmi Phosphorus 6.1 H Magnesium Prealbumin < 3.0 L Urine Color ARNALDO Urine Appearance SLIGHTLY-CLOUDY Urine pH 5.0 Ur Specific Smoot 1.021 Urine Protein 30 H Urine Glucose (UA) NEGATIVE Urine Ketones NEGATIVE Urine Blood LARGE H Urine Nitrite NEGATIVE Ur Leukocyte Esterase NEGATIVE Urine WBC (Auto) 4 Urine RBC (Auto) 1 11/25/19 11/25/19 11/25/19 15:11 18:17 18:18 WBC RBC Hgb Hct MCV MCH MCHC RDW Plt Count Seg Neutrophils % Carbonic Acid HCO3/H2CO3 Ratio ABG pH ABG pCO2 ABG pO2 ABG HCO3 ABG O2 Saturation ABG Base Excess FiO2 Sodium 141.0 Potassium 3.9 Chloride 110 H Carbon Dioxide 22 Anion Gap 9 BUN 95 H Creatinine 3.15 H Est GFR ( Amer) 23 L Glucose 230 H Lactic Acid Calcium 7.2 L Ionized Calcium Funmi Phosphorus Magnesium Prealbumin Urine Color ARNALDO ARNALDO Urine Appearance CLOUDY TURBID Urine pH 5.0 5.0 Ur Specific Smoot 1.019 1.013 Urine Protein 30 H NEGATIVE Urine Glucose (UA) 50 H NEGATIVE Urine Ketones NEGATIVE NEGATIVE Urine Blood LARGE H LARGE H Urine Nitrite NEGATIVE NEGATIVE Ur Leukocyte Esterase NEGATIVE NEGATIVE Urine WBC (Auto) 5 5 Urine RBC (Auto) 5 3 11/25/19 11/25/19 11/26/19 19:00 21:08 01:47 WBC RBC Hgb Hct MCV MCH MCHC RDW Plt Count Seg Neutrophils % Carbonic Acid 0.93 L HCO3/H2CO3 Ratio 20:1 ABG pH 7.41 ABG pCO2 30.8 L ABG pO2 105.3 H ABG HCO3 19.2 L ABG O2 Saturation 98.0 ABG Base Excess -4.6 FiO2 4 L Sodium 140.5 Potassium 3.3 L Chloride 111 H Carbon Dioxide 19 L Anion Gap 11 BUN 96 H Creatinine 2.67 H Est GFR ( Amer) 28 L Glucose 231 H Lactic Acid 1.9 Calcium 7.0 L* Ionized Calcium Funmi Phosphorus Magnesium Prealbumin Urine Color Urine Appearance Urine pH Ur Specific Smoot Urine Protein Urine Glucose (UA) Urine Ketones Urine Blood Urine Nitrite Ur Leukocyte Esterase Urine WBC (Auto) Urine RBC (Auto) 11/26/19 11/26/19 11/26/19 01:47 05:31 06:16 WBC RBC Hgb Hct MCV MCH MCHC RDW Plt Count Seg Neutrophils % Carbonic Acid HCO3/H2CO3 Ratio ABG pH ABG pCO2 ABG pO2 ABG HCO3 ABG O2 Saturation ABG Base Excess FiO2 Sodium Potassium Chloride Carbon Dioxide Anion Gap BUN Creatinine Est GFR ( Amer) Glucose Lactic Acid 1.8 1.6 Calcium Ionized Calcium Funmi Phosphorus Magnesium Prealbumin Urine Color YELLOW Urine Appearance CLEAR Urine pH 5.0 Ur Specific Smoot 1.010 Urine Protein NEGATIVE Urine Glucose (UA) NEGATIVE Urine Ketones NEGATIVE Urine Blood LARGE H Urine Nitrite NEGATIVE Ur Leukocyte Esterase NEGATIVE Urine WBC (Auto) 16 Urine RBC (Auto) 52 11/26/19 11/26/19 11/26/19 06:16 06:16 06:16 WBC 5.2 RBC 3.29 L Hgb 9.7 L Hct 28.3 L MCV 86 MCH 29.5 MCHC 34.4 RDW 15.6 H Plt Count 11 L* Seg Neutrophils % Not Reportable Carbonic Acid HCO3/H2CO3 Ratio ABG pH ABG pCO2 ABG pO2 ABG HCO3 ABG O2 Saturation ABG Base Excess FiO2 Sodium 141.9 Potassium 3.6 Chloride 111 H Carbon Dioxide 23 Anion Gap 8 BUN 104 H Creatinine 2.96 H Est GFR ( Amer) 25 L Glucose 218 H Lactic Acid Calcium 7.3 L Ionized Calcium Funmi 1.09 L Phosphorus 5.0 H Magnesium 2.4 H Prealbumin Urine Color Urine Appearance Urine pH Ur Specific Smoot Urine Protein Urine Glucose (UA) Urine Ketones Urine Blood Urine Nitrite Ur Leukocyte Esterase Urine WBC (Auto) Urine RBC (Auto) 11/25/19 14:15 Blood Blood Culture (PCR) - Final Staphylococcus Aureus 11/24/19 14:47 Sputum Gram Stain - Final 11/24/19 14:47 Sputum Sputum Culture - Final 11/23/19 18:45 Blood Blood Culture (PCR) - Final Staphylococcus Aureus 11/23/19 18:45 Blood Blood Culture - Final Staphylococcus Aureus 11/23/19 17:41 Blood Blood Culture (PCR) - Final Staphylococcus Aureus 11/23/19 17:41 Blood Blood Culture - Final Staphylococcus Aureus 11/23/19 17:41 Catheterized Urine Urine Culture - Final Staphylococcus Aureus 11/23/19 11/23/19 11/24/19 17:41 17:41 00:28 Creatine Kinase 4086 H 5523 H CK-MB (CK-2) Troponin I 0.170 NT-Pro-B Natriuret Pep 11/24/19 11/24/19 11/24/19 00:28 03:20 03:20 Creatine Kinase CK-MB (CK-2) Troponin I 0.231 0.240 NT-Pro-B Natriuret Pep 1070 H 11/24/19 11/24/19 11/24/19 06:32 06:32 11:00 Creatine Kinase 3765 H CK-MB (CK-2) 23.10 H Troponin I 0.375 NT-Pro-B Natriuret Pep 11/24/19 11/24/19 11/24/19 14:50 18:45 22:13 Creatine Kinase CK-MB (CK-2) Troponin I 0.569 0.699 0.750 NT-Pro-B Natriuret Pep 6100 H 11/25/19 04:15 Creatine Kinase CK-MB (CK-2) Troponin I 0.743 NT-Pro-B Natriuret Pep Impressions: Chest CT 11/23/19 20:09 IMPRESSION: Bibasilar airspace disease and adjacent effusions. Pneumonia could have this appearance. Given bibasilar distribution, aspiration is a consideration. No high-grade bowel obstruction. Moderate hard stool within the colon. Acute intertrochanteric fracture left femur. Study is degraded by artifact from the patient's arms and motion. Additionally given stranding within all the imaged fat, tissue planes are difficult to discern.. Head CT 11/23/19 20:09 IMPRESSION: Imaging is degraded by patient motion, with resultant artifact. The best possible images were obtained. No acute intracranial process. Age-related involutional changes are identified. Presumed old small vessel ischemic changes are seen predominantly in a periventricular distribution.. The cause of the patient's metal status change is not identified on this examination. Abdomen/Pelvis CT 11/23/19 20:10 IMPRESSION: Bibasilar airspace disease and adjacent effusions. Pneumonia could have this appearance. Given bibasilar distribution, aspiration is a consideration. No high-grade bowel obstruction. Moderate hard stool within the colon. Acute intertrochanteric fracture left femur. Study is degraded by artifact from the patient's arms and motion. Additionally given stranding within all the imaged fat, tissue planes are difficult to discern.. Cervical Spine CT 11/23/19 22:17 IMPRESSION: No acute fracture or subluxation of the cervical spine. Femur X-Ray 11/23/19 22:43 IMPRESSION: Intertrochanteric fracture. copyright 2010 [employer]- All Rights Reserved Pelvis X-Ray 11/23/19 22:43 IMPRESSION: Intertrochanteric fracture of the left hip. copyright 2010 [employer]- All Rights Reserved Chest X-Ray 11/24/19 04:00 IMPRESSION: Right middle lobe peripheral opacification similar to that seen on comparison CT imaging. No acute findings. KUB X-Ray 11/24/19 15:22 IMPRESSION: 1. Partially visualized nasogastric tube, tip overlies the fundus -proximal body of the stomach. All labs, radiographs, diagnostic studies and EKGs were personally reviewed: Yes In addition, reports of radiographic and diagnostic studies were read: Yes Assessment and Plan - Diagnosis (1) Cardiomyopathy Qualifiers: Cardiomyopathy type: unspecified Qualified Code(s): I42.9 - Cardiomyopathy, unspecified Is this a current diagnosis for this admission?: Yes Plan: LVEF 35-40% on 2D echo (11/23) with global hypokinesis, grade 2/4 diastolic dysfunction, moderate mitral regurgitation, moderate tricuspid regurgitation, pulmonary hypertension. At this point, the patient's bradycardia, hypotension and elevation in troponin raise concern for post VA pump failure. May need to consider addition of an inotropic agent (dobutamine or milrinone). (2) MSSA bacteremia Is this a current diagnosis for this admission?: Yes Plan: Continue current empiric Zosyn/vancomycin until all culture/sensitivity data have finalized. Switched to nafcillin 2 g IV every 4 hours on 11/25/2019. (3) Pancytopenia Is this a current diagnosis for this admission?: Yes Plan: * With interim improvement in WBC count and hemoglobin, now with isolated profound thrombocytopenia, it appears that this patient's pancytopenia was likely related to severe malnutrition and sepsis. * Reticulocyte count 0.007. * Vitamin B12 high. Folate within normal limits. * Prealbumin was below the detectable limit. * VINICIO, rheumatoid factor pending * HIV negative. EBV, hepatitis panels pending. * Leukemia/lymphoma panel by flow cytometry pending. * If the patient does not begin improving with initiation of nutrition and treatment for his MSSA bacteremia, hematology consultation will be needed. (4) Elevated troponin Is this a current diagnosis for this admission?: Yes (5) Acute kidney injury Is this a current diagnosis for this admission?: Yes Plan: On furosemide infusion. Wean as tolerated (maintain urine output 60 mL/h). (6) Diabetic foot ulcers Qualifiers: Diabetic foot ulcer location: midfoot Diabetes mellitus type: type 2 Laterality: right Non-pressure ulcer stage: limited to breakdown of skin Qualified Code(s): E11.621 - Type 2 diabetes mellitus with foot ulcer; L97.411 - Non-pressure chronic ulcer of right heel and midfoot limited to breakdown of skin Is this a current diagnosis for this admission?: Yes (7) Diabetes mellitus type 2 in nonobese Is this a current diagnosis for this admission?: Yes (8) Intertrochanteric fracture of left femur Qualifiers: Encounter type: subsequent encounter Fracture type: closed Fracture alignment: nondisplaced Fracture healing: with routine healing Qualified Code(s): S72.145D - Nondisplaced intertrochanteric fracture of left femur, subsequent encounter for closed fracture with routine healing Is this a current diagnosis for this admission?: Yes (10) Septic shock Is this a current diagnosis for this admission?: Yes Plan: With normalization in his serum lactate level, it appears that the patient's septic shock has resolved. However, he remains on vasopressors, likely revealing his underlying cardiomyopathy. Critical Time Critical Time (minutes): 90 Level of Care: ICU -: 1. The care of a critical patient is a dynamic process. This note is a sales representative aircraft synopsis but static in nature. The timeframe for treatments given in order is not necessarily the actual time these treatments may have been done. 2. This patient requires critical care secondary to ongoing requirements for therapy not offered or safe outside the critical care environment. Transfer to a lower level of care will result in altered life or limb morbidity and mortality. 3. Multidisciplinary rounds completed. 4. ABCDE bundle addressed.
[2019-11-27] MEDS: INSULIN REG, HUMAN 100 UNIT/ML 3 ML VIAL (PYX) SUBCUT SCH ×4 (00:09→17:49)
[2019-11-27] MEDS: NAFCILLIN SODIUM 2 GM in DEXTROSE 5%-WATER 100 ML IV SCH ×6 (00:10→19:58)
[2019-11-27] MEDS: DOPAMINE HCL/DEXTROSE 5%-WATER 800 MG/250 ML RTUINJ IV PRN ×2 (00:13→19:55)
[2019-11-27] MEDS: DEXTROSE 5%-WATER 250 ML with VASOPRESSIN 100 UNIT IV PRN ×2 (00:14)
--- NOTE | 2019-11-27 02:48 | EKG REPORT ---
SEVERITY:- ABNORMAL ECG - SINUS BRADYCARDIA BORDERLINE LEFT AXIS DEVIATION LOW VOLTAGE IN FRONTAL LEADS BORDERLINE PROLONGED QT INTERVAL : Confirmed by: Ben Rae MD 27-Nov-2019 02:47:51
--- NOTE | 2019-11-27 02:49 | EKG REPORT ---
SEVERITY:- ABNORMAL ECG - SINUS RHYTHM SINUS PAUSE/ARREST WITH ATRIAL ESCAPE NONSPECIFIC INTRAVENTRICULAR CONDUCTION DELAY LOW VOLTAGE THROUGHOUT : Confirmed by: Ben Rae MD 27-Nov-2019 02:48:46
[2019-11-27 04:55] LABS: INTERNATIONAL RATION (INR) 1.17; PROTHROMBIN TIME 15.1 SEC (11.4-15.4)
[2019-11-27 04:57] LABS: PARTIAL THROMBOPLASTIN TIME 51.6 SEC (23.5-35.8)
[2019-11-27 05:07] LABS: ALBUMIN 1.6 g/dL (3.5-5.0); ALKALINE PHOSPHATASE 108 U/L (38-126); ANION GAP 10 (5-19); ASPARTATE AMINO TRANSFERASE 266 U/L (17-59); BILIRUBIN,DIRECT 2.9 mg/dL (0.0-0.4); BILIRUBIN,TOTAL 3.6 mg/dL (0.2-1.3); BLOOD UREA NITROGEN 112 mg/dL (7-20); CALCIUM 7.3 mg/dL (8.4-10.2); CARBON DIOXIDE 23 mmol/L (22-30); CHLORIDE 110 mmol/L (98-107); GLUCOSE 166 mg/dL (75-110); POTASSIUM 3.7 mmol/L (3.6-5.0); TOTAL PROTEIN 3.9 g/dL (6.3-8.2)
[2019-11-27 05:26] LABS: D-DIMER 15.4 ug/mL (0.00-0.50)
[2019-11-27] MEDS ORDERED: CALCIUM GLUC IN NACL, ISO-OSM 1 GM/50 ML RTUPB IV ONE (05:31)
[2019-11-27 06:54] LABS: APPEARANCE,URINE SLIGHTLY-CLOUDY; BILIRUBIN,URINE NEGATIVE (NEGATIVE); COLOR,URINE YELLOW; GLUCOSE, URINE 50 mg/dL (NEGATIVE); HEMATOCRIT 25.5 % (37.9-51.0); HEMOGLOBIN 8.8 g/dL (13.5-17.0); KETONES,URINE NEGATIVE (NEGATIVE); LEUKOCYTE ESTERASE,URINE NEGATIVE (NEGATIVE); MEAN CORPUSCULAR HEMOGLOBIN 29.4 pg (27.0-33.4); MEAN CORPUSCULAR HGB CONC 34.5 g/dL (32.0-36.0); MEAN CORPUSCULAR VOLUME 85 fl (80-97); NITRITE,URINE NEGATIVE (NEGATIVE); PROTEIN,URINE NEGATIVE (NEGATIVE); RED BLOOD COUNT 2.99 10^6/uL (4.35-5.55); RED CELL DISTRIBUTION WIDTH 15.4 % (11.5-14.0); URINE SPECIFIC GRAVITY 1.011; UROBILINOGEN,URINE NEGATIVE mg/dL (<2.0); WHITE BLOOD COUNT 5.5 10^3/uL (4.0-10.5)
[2019-11-27 07:30] LABS: ABSOLUTE LYMPHOCYTES# (MANUAL) 0.3 10^3/uL (0.5-4.7); ABSOLUTE MONOCYTES # (MANUAL) 0.1 10^3/uL (0.1-1.4); BASOPHILS % (MANUAL) 0 % (0-2); EOSINOPHILS % (MANUAL) 0 % (0-6); LYMPHOCYTES % (MANUAL) 6 % (13-45); MONOCYTES % (MANUAL) 1 % (3-13); PLATELET COMMENT DECREASED; SEGMENTED NEUTROPHILS % (MAN) 93 % (42-78); TOTAL CELLS COUNTED 100
[2019-11-27 07:31] LABS: ANISOCYTOSIS SLIGHT
[2019-11-27 07:32] LABS: POLYCHROMASIA SLIGHT
[2019-11-27 07:33] LABS: TARGET CELLS SLIGHT
[2019-11-27 07:34] LABS: SCHISTOCYTES SLIGHT
[2019-11-27 07:37] LABS: OVALOCYTES SLIGHT
[2019-11-27 07:38] LABS: PLATELET COUNT 9 10^3/uL (150-450)
[2019-11-27] MEDS ORDERED: NORMAL SALINE 250 ML IV PRN ×4 (08:00→08:22)
[2019-11-27] MEDS ORDERED: ACETAMINOPHEN 1000 MG PO PRN (08:02)
[2019-11-27] MEDS ORDERED: FLUCONAZOLE 400 MG/NS RTU 400 MG/200 ML RTUPB IV ONE (08:30)
--- NOTE | 2019-11-27 08:49 | RADIOLOGY REPORT (SQ) ---
EXAM DESCRIPTION: CLAVICLE RIGHT IMAGES COMPLETED DATE/TIME: 11/27/2019 8:30 am REASON FOR STUDY: r/o fracture of Right clavicle COMPARISON: None. NUMBER OF VIEWS: Two views. TECHNIQUE: Frontal and angled images were acquired of the right clavicle. LIMITATIONS: None. FINDINGS: MINERALIZATION: Decreased. BONES: No acute fracture or dislocation. Glenohumeral and acromioclavicular osteoarthropathy. Decre ased subacromial space compatible with chronic rotator cuff loss. Globular calcific densities within the expected location of the supraspinatus, likely calcific tendinosis. SOFT TISSUES: No obvious swelling or foreign body. OTHER: No other significant finding. IMPRESSION: 1. No evidence of acute bony abnormality. 2. 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 TECHNICAL DOCUMENTATION: JOB ID: [id number] 2010 [employer]- All Rights Reserved Reading location - IP/workstation name: [email or web address]
[2019-11-27] MEDS: PANTOPRAZOLE SODIUM 40 MG VIAL IV SCH (09:25)
[2019-11-27] MEDS: CHOLECALCIFEROL (D3) 1,000 UNIT (25 MCG) TABLET NG SCH (09:28)
[2019-11-27] MEDS: MEMANTINE HCL 10 MG TABLET NG SCH ×2 (09:29→17:49)
[2019-11-27] MEDS: DONEPEZIL HCL 5 MG TABLET NG SCH (09:29)
[2019-11-27] MEDS ORDERED: (PENDING PHARMACY ID) (Omega-3 Fatty Acids/Fish Oil [Fish Oil 1,000 Mg Capsule] 1,000 MG) PO SCH (10:00)
[2019-11-27] MEDS ORDERED: OMEGA-3 ACID ETHYL ESTERS 1 GM CAPSULE PO SCH (10:00)
[2019-11-27] MEDS ORDERED: (PENDING PHARMACY ID) (Donepezil Hcl [Donepezil Hcl] 10 MG) PO SCH (10:00)
[2019-11-27] MEDS ORDERED: MEMANTINE HCL 10 MG TABLET PO SCH (10:00)
[2019-11-27] MEDS ORDERED: DONEPEZIL HCL 5 MG TABLET PO SCH (10:00)
[2019-11-27] MEDS ORDERED: CHOLECALCIFEROL (D3) 1,000 UNIT (25 MCG) TABLET PO SCH (10:00)
[2019-11-27 13:09] LABS: PATH REVIEW PATHOLOGIST REVIEWED
--- NOTE | 2019-11-27 14:09 | RADIOLOGY REPORT (SQ) ---
EXAM DESCRIPTION: VENOUS UNILATERAL UPPER IMAGES COMPLETED DATE/TIME: 11/27/2019 1:42 pm REASON FOR STUDY: RUE swelling COMPARISON: None. TECHNIQUE: Dynamic and static mejía scale and color images acquired of the right arm venous system. S elected spectral images acquired with additional compression and augmentation maneuvers. The contrala teral subclavian vein and internal jugular vein were also imaged. Images stored on PACS. LIMITATIONS: None. FINDINGS: INTERNAL JUGULAR VEIN: Normal phasicity, compression, augmentation. No visualized echogeni c material on mejía scale. No defects on color images. Comparison opposite side normal. SUBCLAVIAN VEIN: Normal compression, augmentation. No visualized echogenic material on mejía scale. No defects on color images. AXILLARY VEIN: Normal compression, augmentation. No visualized echogenic material on mejía scale. No d efects on color images. BRACHIAL VEIN: Normal compression, augmentation. No visualized echogenic material on mejía scale. No d efects on color images. BASILIC VEIN: Normal compression, augmentation. No visualized echogenic material on mejía scale. No de fects on color images. CEPHALIC VEIN: Normal compression, augmentation. No visualized echogenic material on mejía scale. No d efects on color images. OTHER: No other significant finding. IMPRESSION: 1. NO EVIDENCE DVT OR SVT RIGHT ARM. TECHNICAL DOCUMENTATION: JOB ID: [id number] 2010 [employer]- All Rights Reserved Reading location - IP/workstation name: [email or web address]
[2019-11-27 16:37] LABS: ANTINUCLEAR ANTIBODIES Positive (Negative)
[2019-11-27 16:39] LABS: HEMATOCRIT 25.6 % (37.9-51.0); HEMOGLOBIN 8.8 g/dL (13.5-17.0); MEAN CORPUSCULAR HEMOGLOBIN 29.5 pg (27.0-33.4); MEAN CORPUSCULAR HGB CONC 34.4 g/dL (32.0-36.0); MEAN CORPUSCULAR VOLUME 86 fl (80-97); RED BLOOD COUNT 2.99 10^6/uL (4.35-5.55); RED CELL DISTRIBUTION WIDTH 15.8 % (11.5-14.0); WHITE BLOOD COUNT 5.8 10^3/uL (4.0-10.5)
[2019-11-27 18:31] LABS: PLATELET COUNT 65 10^3/uL (150-450)
[2019-11-27 18:39] LABS: ABSOLUTE LYMPHOCYTES# (MANUAL) 0.5 10^3/uL (0.5-4.7); ABSOLUTE MONOCYTES # (MANUAL) 0.1 10^3/uL (0.1-1.4); BAND NEUTROPHILS % (MANUAL) 1 % (3-5); BASOPHILS % (MANUAL) 0 % (0-2); EOSINOPHILS % (MANUAL) 1 % (0-6); LYMPHOCYTES % (MANUAL) 8 % (13-45); MONOCYTES % (MANUAL) 2 % (3-13); SEGMENTED NEUTROPHILS % (MAN) 87 % (42-78); TOTAL CELLS COUNTED 100
[2019-11-27 18:40] LABS: PLATELET COMMENT DECREASED
[2019-11-27 18:43] LABS: OVALOCYTES 1+; TARGET CELLS SLIGHT; TEAR DROP CELLS 1+
[2019-11-27] MEDS ORDERED: ATORVASTATIN CALCIUM 20 MG TABLET PO SCH (22:00)
[2019-11-27] MEDS ORDERED: ATORVASTATIN CALCIUM 80 MG TABLET PO SCH (22:00)
[2019-11-27] MEDS: FUROSEMIDE INJ/PF 40 MG/4 ML SDV IV SCH (23:19)
[2019-11-27] MEDS: ATORVASTATIN CALCIUM 80 MG TABLET NG SCH (23:19)
[2019-11-28] MEDS: NAFCILLIN SODIUM 2 GM in DEXTROSE 5%-WATER 100 ML IV SCH ×6 (00:28→22:58)
[2019-11-28] MEDS: INSULIN REG, HUMAN 100 UNIT/ML 3 ML VIAL (PYX) SUBCUT SCH ×4 (00:29→17:48)
[2019-11-28 05:00] LABS: ANION GAP 8 (5-19); CALCIUM 7.6 mg/dL (8.4-10.2); CARBON DIOXIDE 27 mmol/L (22-30); CHLORIDE 107 mmol/L (98-107); GLUCOSE 184 mg/dL (75-110); PHOSPHORUS 4.3 mg/dL (2.5-4.5)
[2019-11-28 05:01] LABS: HEMATOCRIT 25.9 % (37.9-51.0); HEMOGLOBIN 8.9 g/dL (13.5-17.0); MEAN CORPUSCULAR HEMOGLOBIN 29.1 pg (27.0-33.4); MEAN CORPUSCULAR HGB CONC 34.3 g/dL (32.0-36.0); MEAN CORPUSCULAR VOLUME 85 fl (80-97); RED BLOOD COUNT 3.06 10^6/uL (4.35-5.55); RED CELL DISTRIBUTION WIDTH 15.7 % (11.5-14.0); WHITE BLOOD COUNT 4.9 10^3/uL (4.0-10.5)
[2019-11-28 05:11] LABS: BLOOD UREA NITROGEN 123 mg/dL (7-20)
[2019-11-28 05:35] LABS: PLATELET COUNT 47 10^3/uL (150-450)
[2019-11-28 05:37] LABS: ABSOLUTE LYMPHOCYTES# (MANUAL) 0.2 10^3/uL (0.5-4.7); ABSOLUTE MONOCYTES # (MANUAL) 0.1 10^3/uL (0.1-1.4); BAND NEUTROPHILS % (MANUAL) 2 % (3-5); BASOPHILS % (MANUAL) 0 % (0-2); EOSINOPHILS % (MANUAL) 1 % (0-6); LYMPHOCYTES % (MANUAL) 5 % (13-45); MONOCYTES % (MANUAL) 2 % (3-13); SEGMENTED NEUTROPHILS % (MAN) 90 % (42-78); TOTAL CELLS COUNTED 100
[2019-11-28 05:38] LABS: HEPATITS B SURFACE ANTIGEN Negative (Negative)
[2019-11-28 05:39] LABS: ANISOCYTOSIS 2+; BURR CELLS 4+; OVALOCYTES 1+; PLATELET COMMENT DECREASED; POIKILOCYTOSIS 2+; SCHISTOCYTES SLIGHT; TOXIC GRANULATION 1+
[2019-11-28 06:01] LABS: APPEARANCE,URINE CLEAR; BILIRUBIN,URINE NEGATIVE (NEGATIVE); COLOR,URINE YELLOW; GLUCOSE, URINE NEGATIVE (NEGATIVE); KETONES,URINE NEGATIVE (NEGATIVE); LEUKOCYTE ESTERASE,URINE NEGATIVE (NEGATIVE); NITRITE,URINE NEGATIVE (NEGATIVE); PROTEIN,URINE NEGATIVE (NEGATIVE); UROBILINOGEN,URINE NEGATIVE mg/dL (<2.0)
[2019-11-28 08:20] LABS: HEPATITIS C VIRUS ANTIBODY 0.2 s/co ratio (0.0-0.9)
[2019-11-28 08:21] LABS: EPSTEIN BARR NUCLEAR AG IGG AB 92.6 U/mL (0.0-17.9); EPSTEIN BARR VCA IGG AB >600.0 U/mL (0.0-17.9); EPSTEIN BARR VCA IGM AB <36.0 U/mL (0.0-35.9)
--- NOTE | 2019-11-28 08:56 | PDOC CRITICAL CARE PROG REPORT ---
General Date:: 11/28/19 ICU Day:: 4 Hospital Day:: 4 Resuscitation Status: Full Code Events in the past 12 to 24 Hours:: We have made little progress in weaning dopamine and vasopressin. Review of systems relevant to events:: CV, neurological, orthopedic Reason for ICU Addmission:: Shock (NOS), MARY 2/2 rhabdomyolysis, pneumonia - Medications: Medications reviewed and adjusted accordingly: Yes Vasopressors:: Vasopressin, dopamine. Sedation:: None Physical Exam Vital Signs: Temp Pulse Resp BP Pulse Ox 96.1 F L 54 L 13 113/58 L 95 11/28/19 06:00 11/28/19 07:00 11/28/19 06:39 11/28/19 06:39 11/28/19 06:39 Intake & Output 11/27/19 11/28/19 11/29/19 06:59 06:59 06:59 Intake Total 912 1376 156 Output Total 2990 4135 Balance -3076 -0041 156 Weight 82.7 kg 83 kg Weight/Height Weight 83 kg Height 6 ft General appearance: PRESENT: no acute distress, thin Head exam: PRESENT: atraumatic, normocephalic Eye exam: PRESENT: conjunctiva pink, EOMI, PERRLA. ABSENT: scleral icterus Ear exam: PRESENT: normal external ear exam Mouth exam: PRESENT: moist, tongue midline Respiratory exam: PRESENT: clear to auscultation jeaneth. ABSENT: rales, rhonchi, wheezes Cardiovascular exam: PRESENT: RRR. ABSENT: diastolic murmur, rubs, systolic murmur GI/Abdominal exam: PRESENT: normal bowel sounds, soft. ABSENT: distended, guarding, mass, organolmegaly, rebound, tenderness Rectal exam: PRESENT: deferred Gentrourinary exam: PRESENT: indwelling catheter Extremities exam: PRESENT: other - No external rotation noted. Musculoskeletal exam: PRESENT: tenderness Neurological exam: PRESENT: altered, awake, CN II-XII grossly intact, other - Sleepy Skin exam: PRESENT: normal color Laboratory/Radiographs Laboratory Results: 11/28/19 04:03 11/28/19 04:03 11/26/19 11/27/19 11/28/19 20:16 16:14 04:03 WBC 5.8 RBC 2.99 L Hgb 8.8 L Hct 25.6 L MCV 86 MCH 29.5 MCHC 34.4 RDW 15.8 H Plt Count 65 L D Seg Neutrophils % Not Reportable Sodium 141.8 Potassium 3.0 L* Chloride 107 Carbon Dioxide 27 Anion Gap 8 BUN 123 H Creatinine 2.60 H Est GFR ( Amer) 29 L Glucose 184 H Calcium 7.6 L Phosphorus 4.3 Magnesium 2.5 H Urine Color Urine Appearance Urine pH Ur Specific [place] Urine Protein Urine Glucose (UA) Urine Ketones Urine Blood Urine Nitrite Ur Leukocyte Esterase Urine WBC (Auto) Urine RBC (Auto) Blood Type A POSITIVE Antibody Screen POSITIVE 11/28/19 11/28/19 04:03 05:34 WBC 4.9 RBC 3.06 L Hgb 8.9 L Hct 25.9 L MCV 85 MCH 29.1 MCHC 34.3 RDW 15.7 H Plt Count 47 L Seg Neutrophils % Not Reportable Sodium Potassium Chloride Carbon Dioxide Anion Gap BUN Creatinine Est GFR ( Amer) Glucose Calcium Phosphorus Magnesium Urine Color YELLOW Urine Appearance CLEAR Urine pH 5.0 Ur Specific [place] 1.010 Urine Protein NEGATIVE Urine Glucose (UA) NEGATIVE Urine Ketones NEGATIVE Urine Blood LARGE H Urine Nitrite NEGATIVE Ur Leukocyte Esterase NEGATIVE Urine WBC (Auto) 6 Urine RBC (Auto) 3 Blood Type Antibody Screen 11/25/19 14:15 Blood Blood Culture (PCR) - Final Staphylococcus Aureus 11/25/19 16:10 Blood Blood Culture (PCR) - Final Staphylococcus Aureus 11/23/19 11/23/19 11/24/19 17:41 17:41 00:28 Creatine Kinase 4086 H 5523 H CK-MB (CK-2) Troponin I 0.170 NT-Pro-B Natriuret Pep 11/24/19 11/24/19 11/24/19 00:28 03:20 03:20 Creatine Kinase CK-MB (CK-2) Troponin I 0.231 0.240 NT-Pro-B Natriuret Pep 1070 H 11/24/19 11/24/19 11/24/19 06:32 06:32 11:00 Creatine Kinase 3765 H CK-MB (CK-2) 23.10 H Troponin I 0.375 NT-Pro-B Natriuret Pep 11/24/19 11/24/19 11/24/19 14:50 18:45 22:13 Creatine Kinase CK-MB (CK-2) Troponin I 0.569 0.699 0.750 NT-Pro-B Natriuret Pep 6100 H 11/25/19 11/26/19 04:15 11:10 Creatine Kinase CK-MB (CK-2) Troponin I 0.743 0.381 NT-Pro-B Natriuret Pep Impressions: Chest CT 11/23/19 20:09 IMPRESSION: Bibasilar airspace disease and adjacent effusions. Pneumonia could have this appearance. Given bibasilar distribution, aspiration is a consideration. No high-grade bowel obstruction. Moderate hard stool within the colon. Acute intertrochanteric fracture left femur. Study is degraded by artifact from the patient's arms and motion. Additionally given stranding within all the imaged fat, tissue planes are difficult to discern.. Head CT 11/23/19 20:09 IMPRESSION: Imaging is degraded by patient motion, with resultant artifact. The best possible images were obtained. No acute intracranial process. Age-related involutional changes are identified. Presumed old small vessel ischemic changes are seen predominantly in a periventricular distribution.. The cause of the patient's metal status change is not identified on this examination. Abdomen/Pelvis CT 11/23/19 20:10 IMPRESSION: Bibasilar airspace disease and adjacent effusions. Pneumonia could have this appearance. Given bibasilar distribution, aspiration is a consideration. No high-grade bowel obstruction. Moderate hard stool within the colon. Acute intertrochanteric fracture left femur. Study is degraded by artifact from the patient's arms and motion. Additionally given stranding within all the imaged fat, tissue planes are difficult to discern.. Cervical Spine CT 11/23/19 22:17 IMPRESSION: No acute fracture or subluxation of the cervical spine. Femur X-Ray 11/23/19 22:43 IMPRESSION: Intertrochanteric fracture. copyright 2010 [employer]- All Rights Reserved Pelvis X-Ray 11/23/19 22:43 IMPRESSION: Intertrochanteric fracture of the left hip. copyright 2010 [employer]- All Rights Reserved Chest X-Ray 11/24/19 04:00 IMPRESSION: Right middle lobe peripheral opacification similar to that seen on comparison CT imaging. No acute findings. KUB X-Ray 11/24/19 15:22 IMPRESSION: 1. Partially visualized nasogastric tube, tip overlies the fundus -proximal body of the stomach. Forearm X-Ray 11/26/19 00:00 IMPRESSION: No fracture. Humerus X-Ray 11/26/19 00:00 IMPRESSION: No fracture. Venous Doppler Study 11/27/19 00:00 IMPRESSION: 1. NO EVIDENCE DVT OR SVT RIGHT ARM. Clavicle X-Ray 11/27/19 07:51 IMPRESSION: 1. No evidence of acute bony abnormality. 2. 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 All labs, radiographs, diagnostic studies and EKGs were personally reviewed: Yes In addition, reports of radiographic and diagnostic studies were read: Yes Assessment and Plan - Diagnosis (1) Dementia Qualifiers: Dementia type: Alzheimer's disease Is this a current diagnosis for this admission?: Yes Plan: Awake but not oriented. Back on aricept and namenda (2) Acute kidney injury Is this a current diagnosis for this admission?: Yes Plan: Improved with CR 2.6. (3) Cardiomyopathy Qualifiers: Cardiomyopathy type: ischemic Qualified Code(s): I25.5 - Ischemic cardiomyopathy Is this a current diagnosis for this admission?: Yes Plan: Likely contributing to his continued need for pressors. Start midodrine (4) Diabetic foot ulcers Qualifiers: Diabetic foot ulcer location: midfoot Diabetes mellitus type: type 2 Laterality: right Non-pressure ulcer stage: limited to breakdown of skin Qualified Code(s): E11.621 - Type 2 diabetes mellitus with foot ulcer; L97.411 - Non-pressure chronic ulcer of right heel and midfoot limited to breakdown of skin Is this a current diagnosis for this admission?: Yes Plan: Unchanged (5) Intertrochanteric fracture of left femur Qualifiers: Encounter type: subsequent encounter Fracture type: closed Fracture alignment: nondisplaced Fracture healing: with routine healing Qualified Code(s): S72.145D - Nondisplaced intertrochanteric fracture of left femur, subsequent encounter for closed fracture with routine healing Is this a current diagnosis for this admission?: Yes Plan: NV exam intact. (6) MSSA bacteremia Is this a current diagnosis for this admission?: Yes (7) Rhabdomyolysis Qualifiers: Rhabdomyolysis type: non-traumatic Qualified Code(s): M62.82 - Rhabdo myolysis Is this a current diagnosis for this admission?: Yes (8) Septic shock Is this a current diagnosis for this admission?: Yes Plan: BC still positive. (9) Diabetes mellitus type 2 in nonobese Is this a current diagnosis for this admission?: Yes Plan: Controlled (10) Hypokalemia Is this a current diagnosis for this admission?: Yes Plan: Likely due to lasix use. Replacements ordered for today. Plan Summary: So far stable with weaning of dopamine. Start midodrine. Critical Time Critical Time (minutes): 35 Level of Care: ICU Anticipated discharge: Home with Homehealth Anticipated DC Timeframe: Other -: 1. The care of a critical patient is a dynamic process. This note is a hotel services sales representative synopsis but static in nature. The timeframe for treatments given in order is not necessarily the actual time these treatments may have been done. 2. This patient requires critical care secondary to ongoing requirements for therapy not offered or safe outside the critical care environment. Transfer to a lower level of care will result in altered life or limb morbidity and mortality. 3. Multidisciplinary rounds completed. 4. ABCDE bundle addressed.
[2019-11-28] MEDS: MEMANTINE HCL 10 MG TABLET NG SCH ×2 (09:51→17:49)
[2019-11-28] MEDS: MIDODRINE HCL 5 MG TABLET PO SCH ×2 (09:51→17:47)
[2019-11-28] MEDS: CHOLECALCIFEROL (D3) 1,000 UNIT (25 MCG) TABLET NG SCH (09:51)
[2019-11-28] MEDS: FUROSEMIDE INJ/PF 40 MG/4 ML SDV IV SCH ×2 (09:52→23:00)
[2019-11-28] MEDS: DONEPEZIL HCL 5 MG TABLET NG SCH (09:52)
[2019-11-28] MEDS: PANTOPRAZOLE SODIUM 40 MG VIAL IV SCH (09:52)
[2019-11-28] MEDS: POTASSIUM CHLORIDE 20 MEQ PACKET NG SCH ×2 (09:53→23:00)
[2019-11-28] MEDS ORDERED: POTASSIUM CHLORIDE 10 MEQ TABLET.ER PO SCH (10:00)
[2019-11-28 12:32] LABS: PATH REVIEW PATHOLOGIST REVIEWED
--- NOTE | 2019-11-28 16:04 | Progress Note ---
Provider Note Provider Note: I've spoken with Phyllis Rincon, patient's , and updated her on condition. I also said that [facility] will be calling to discuss options regarding potential end of life care. Mrs Rincon was accepting of this and a SNF for placement.
[2019-11-28] MEDS: DEXTROSE 5%-WATER 250 ML with VASOPRESSIN 100 UNIT IV PRN ×2 (16:29)
[2019-11-28] MEDS: RINGERS SOLUTION,LACTATED 1,000 ML IV PRN (16:30)
[2019-11-28] MEDS: PHARMACY COMMUNICATION ORDER MC SCH (18:09)
[2019-11-28] MEDS: ATORVASTATIN CALCIUM 80 MG TABLET NG SCH (23:01)
--- NOTE | 2019-11-29 00:46 | RADIOLOGY REPORT (SQ) ---
EXAM DESCRIPTION: XR CHEST 1 VIEW COMPLETED DATE/TME: 11/28/2019 00:00 CLINICAL HISTORY: 79 years, Male, tube NG placement COMPARISON: 11/24/2019 chest NUMBER OF VIEWS: 2 TECHNIQUE: Frontal views of the chest LIMITATIONS: None. FINDINGS: The heart size is stable. Osteopenia. The enteric tube is coiled in the esophagus. Adjustment recommended. Worsening airspace opacity of the right lung base. Probable small left effusion. No pneumothorax. Postsurgical change left shoulder. IMPRESSION: Tip of the enteric tube coiled in the esophagus. Adjustment recommended. Worsening airspace opacity right lung base copyright 2010 [employer]- All Rights Reserved
[2019-11-29] MEDS: INSULIN REG, HUMAN 100 UNIT/ML 3 ML VIAL (PYX) SUBCUT SCH ×4 (01:25→17:19)
[2019-11-29] MEDS: NAFCILLIN SODIUM 2 GM in DEXTROSE 5%-WATER 100 ML IV SCH ×7 (01:29→23:13)
[2019-11-29] MEDS: POTASSI CL 20 MEQ/50 ML RIDER 20 MEQ/50 ML RTUPB IV SCH ×2 (03:24→05:41)
[2019-11-29 06:33] LABS: HEMATOCRIT 21.2 % (37.9-51.0); MEAN CORPUSCULAR HEMOGLOBIN 29.8 pg (27.0-33.4); MEAN CORPUSCULAR HGB CONC 34.8 g/dL (32.0-36.0); MEAN CORPUSCULAR VOLUME 86 fl (80-97); RED BLOOD COUNT 2.48 10^6/uL (4.35-5.55); RED CELL DISTRIBUTION WIDTH 16.2 % (11.5-14.0); WHITE BLOOD COUNT 7.2 10^3/uL (4.0-10.5)
[2019-11-29 06:42] LABS: ALBUMIN 1.8 g/dL (3.5-5.0); ALKALINE PHOSPHATASE 96 U/L (38-126); ANION GAP 8 (5-19); ASPARTATE AMINO TRANSFERASE 179 U/L (17-59); BILIRUBIN,DIRECT 1.6 mg/dL (0.0-0.4); BILIRUBIN,TOTAL 2.1 mg/dL (0.2-1.3); CALCIUM 7.5 mg/dL (8.4-10.2); CARBON DIOXIDE 27 mmol/L (22-30); CHLORIDE 110 mmol/L (98-107); GLUCOSE 144 mg/dL (75-110); TOTAL PROTEIN 4.4 g/dL (6.3-8.2)
[2019-11-29 06:55] LABS: BLOOD UREA NITROGEN 129 mg/dL (7-20)
[2019-11-29 06:59] LABS: HEMOGLOBIN 7.4 g/dL (13.5-17.0)
[2019-11-29 07:02] LABS: ABSOLUTE LYMPHOCYTES# (MANUAL) 0.7 10^3/uL (0.5-4.7); ABSOLUTE MONOCYTES # (MANUAL) 0.1 10^3/uL (0.1-1.4); BAND NEUTROPHILS % (MANUAL) 2 % (3-5); BASOPHILS % (MANUAL) 0 % (0-2); EOSINOPHILS % (MANUAL) 0 % (0-6); LYMPHOCYTES % (MANUAL) 10 % (13-45); MONOCYTES % (MANUAL) 1 % (3-13); NUCLEATED RED BLOOD CELLS 1 /100 WBC (0); SEGMENTED NEUTROPHILS % (MAN) 87 % (42-78); TOTAL CELLS COUNTED 100
[2019-11-29 07:04] LABS: ANISOCYTOSIS SLIGHT; BURR CELLS 1+; OVALOCYTES SLIGHT; PLATELET COMMENT DECREASED; POIKILOCYTOSIS 1+; SCHISTOCYTES SLIGHT; TOXIC GRANULATION 1+
[2019-11-29 07:05] LABS: PLATELET COUNT 39 10^3/uL (150-450)
--- NOTE | 2019-11-29 07:15 | PDOC CRITICAL CARE PROG REPORT ---
General Date:: 11/29/19 ICU Day:: 5 Hospital Day:: 5 Resuscitation Status: Full Code Events in the past 12 to 24 Hours:: Off presors. Pulled his own central line. Review of systems relevant to events:: Neurological, CV. Reason for ICU Addmission:: MARY 2/2 rhabdomyolysis, pneumonia - Medications: Medications reviewed and adjusted accordingly: Yes Vasopressors:: None. Vasopressin just turned off. Sedation:: None Physical Exam Vital Signs: Temp Pulse Resp BP Pulse Ox 95.9 F L 56 L 18 118/50 L 100 11/29/19 04:23 11/28/19 19:00 11/29/19 06:07 11/29/19 06:07 11/29/19 06:07 Intake & Output 11/28/19 11/29/19 11/30/19 06:59 06:59 06:59 Intake Total 1376 1732 Output Total 4135 3125 Balance -5009 -1393 Weight 83 kg 78.9 kg Weight/Height Weight 78.9 kg Height 6 ft General appearance: PRESENT: no acute distress, thin Head exam: PRESENT: atraumatic, normocephalic Eye exam: PRESENT: conjunctiva pink, PERRLA. ABSENT: scleral icterus Ear exam: PRESENT: normal external ear exam Mouth exam: PRESENT: moist, tongue midline Respiratory exam: PRESENT: clear to auscultation jeaneth, decreased breath sounds. ABSENT: rales, rhonchi, wheezes Cardiovascular exam: PRESENT: RRR. ABSENT: diastolic murmur, rubs, systolic murmur GI/Abdominal exam: PRESENT: normal bowel sounds, soft. ABSENT: distended, guarding, mass, organolmegaly, rebound, tenderness Rectal exam: PRESENT: deferred Gentrourinary exam: PRESENT: indwelling catheter Extremities exam: PRESENT: +1 edema Neurological exam: PRESENT: altered, CN II-XII grossly intact Skin exam: PRESENT: dry, intact, warm. ABSENT: cyanosis, rash Laboratory/Radiographs Laboratory Results: 11/29/19 05:48 11/27/19 11/29/19 11/29/19 06:20 03:40 03:40 WBC 5.5 Cancelled RBC 2.99 L Cancelled Hgb 8.8 L Cancelled Hct 25.5 L Cancelled MCV 85 Cancelled MCH 29.4 Cancelled MCHC 34.5 Cancelled RDW 15.4 H Cancelled Plt Count 9 L* Cancelled Seg Neutrophils % Cancelled Sodium Cancelled Potassium Cancelled Chloride Cancelled Carbon Dioxide Cancelled Anion Gap Cancelled BUN Cancelled Creatinine Cancelled Est GFR ( Amer) Cancelled Est GFR (Non-Af Amer) Cancelled Glucose Cancelled Calcium Cancelled Magnesium Cancelled Total Bilirubin Cancelled AST Cancelled Alkaline Phosphatase Cancelled Total Protein Cancelled Albumin Cancelled 11/29/19 05:48 WBC 7.2 RBC 2.48 L Hgb 7.4 L Hct 21.2 L MCV 86 MCH 29.8 MCHC 34.8 RDW 16.2 H Plt Count 39 L Seg Neutrophils % Not Reportable Sodium Potassium Chloride Carbon Dioxide Anion Gap BUN Creatinine Est GFR ( Amer) Est GFR (Non-Af Amer) Glucose Calcium Magnesium Total Bilirubin AST Alkaline Phosphatase Total Protein Albumin 11/25/19 14:15 Blood Blood Culture (PCR) - Final Staphylococcus Aureus 11/25/19 14:15 Blood Blood Culture - Final Staphylococcus Aureus 11/25/19 16:10 Blood Blood Culture (PCR) - Final Staphylococcus Aureus 11/25/19 16:10 Blood Blood Culture - Final Staphylococcus Aureus 11/27/19 04:22 Blood Blood Culture (PCR) - Final Staphylococcus Aureus 11/27/19 05:39 Blood Blood Culture (PCR) - Final Staphylococcus Aureus 11/23/19 11/23/19 11/24/19 17:41 17:41 00:28 Creatine Kinase 4086 H 5523 H CK-MB (CK-2) Troponin I 0.170 NT-Pro-B Natriuret Pep 11/24/19 11/24/19 11/24/19 00:28 03:20 03:20 Creatine Kinase CK-MB (CK-2) Troponin I 0.231 0.240 NT-Pro-B Natriuret Pep 1070 H 11/24/19 11/24/19 11/24/19 06:32 06:32 11:00 Creatine Kinase 3765 H CK-MB (CK-2) 23.10 H Troponin I 0.375 NT-Pro-B Natriuret Pep 11/24/19 11/24/19 11/24/19 14:50 18:45 22:13 Creatine Kinase CK-MB (CK-2) Troponin I 0.569 0.699 0.750 NT-Pro-B Natriuret Pep 6100 H 11/25/19 11/26/19 04:15 11:10 Creatine Kinase CK-MB (CK-2) Troponin I 0.743 0.381 NT-Pro-B Natriuret Pep Impressions: Chest CT 11/23/19 20:09 IMPRESSION: Bibasilar airspace disease and adjacent effusions. Pneumonia could have this appearance. Given bibasilar distribution, aspiration is a consideration. No high-grade bowel obstruction. Moderate hard stool within the colon. Acute intertrochanteric fracture left femur. Study is degraded by artifact from the patient's arms and motion. Additionally given stranding within all the imaged fat, tissue planes are difficult to discern.. Head CT 11/23/19 20:09 IMPRESSION: Imaging is degraded by patient motion, with resultant artifact. The best possible images were obtained. No acute intracranial process. Age-related involutional changes are identified. Presumed old small vessel ischemic changes are seen predominantly in a periventricular distribution.. The cause of the patient's metal status change is not identified on this examination. Abdomen/Pelvis CT 11/23/19 20:10 IMPRESSION: Bibasilar airspace disease and adjacent effusions. Pneumonia could have this appearance. Given bibasilar distribution, aspiration is a consideration. No high-grade bowel obstruction. Moderate hard stool within the colon. Acute intertrochanteric fracture left femur. Study is degraded by artifact from the patient's arms and motion. Additionally given stranding within all the imaged fat, tissue planes are difficult to discern.. Cervical Spine CT 11/23/19 22:17 IMPRESSION: No acute fracture or subluxation of the cervical spine. Femur X-Ray 11/23/19 22:43 IMPRESSION: Intertrochanteric fracture. copyright 2010 [employer]- All Rights Reserved Pelvis X-Ray 11/23/19 22:43 IMPRESSION: Intertrochanteric fracture of the left hip. copyright 2010 [employer]- All Rights Reserved KUB X-Ray 11/24/19 15:22 IMPRESSION: 1. Partially visualized nasogastric tube, tip overlies the fundus -proximal body of the stomach. Forearm X-Ray 11/26/19 00:00 IMPRESSION: No fracture. Humerus X-Ray 11/26/19 00:00 IMPRESSION: No fracture. Venous Doppler Study 11/27/19 00:00 IMPRESSION: 1. NO EVIDENCE DVT OR SVT RIGHT ARM. Clavicle X-Ray 11/27/19 07:51 IMPRESSION: 1. No evidence of acute bony abnormality. 2. 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 Chest X-Ray 11/28/19 00:00 IMPRESSION: Tip of the enteric tube coiled in the esophagus. Adjustment recommended. Worsening airspace opacity right lung base copyright 2011 [employer]- All Rights Reserved All labs, radiographs, diagnostic studies and EKGs were personally reviewed: Yes In addition, reports of radiographic and diagnostic studies were read: Yes Assessment and Plan - Diagnosis (1) Dementia Qualifiers: Dementia type: Alzheimer's disease Is this a current diagnosis for this admission?: Yes Plan: This is an end stage process and Hospice is to talk to today. (2) Acute kidney injury Is this a current diagnosis for this admission?: Yes Plan: Slowly improving but not at baseline. This could be his new baseline. (3) Cardiomyopathy Qualifiers: Cardiomyopathy type: ischemic Qualified Code(s): I25.5 - Ischemic cardiomyopathy Is this a current diagnosis for this admission?: Yes Plan: Seems to be able to come off pressors. (4) Diabetic foot ulcers Qualifiers: Diabetic foot ulcer location: midfoot Diabetes mellitus type: type 2 Laterality: right Non-pressure ulcer stage: limited to breakdown of skin Qualified Code(s): E11.621 - Type 2 diabetes mellitus with foot ulcer; L97.411 - Non-pressure chronic ulcer of right heel and midfoot limited to breakdown of skin Is this a current diagnosis for this admission?: Yes Plan: Unchanged. (5) Intertrochanteric fracture of left femur Qualifiers: Encounter type: subsequent encounter Fracture type: closed Fracture alignment: nondisplaced Fracture healing: with routine healing Qualified Code(s): S72.145D - Nondisplaced intertrochanteric fracture of left femur, subsequent encounter for closed fracture with routine healing Is this a current diagnosis for this admission?: Yes Plan: Conservative treatment for now. (6) MSSA bacteremia Is this a current diagnosis for this admission?: Yes Plan: Continue nafcillin for one week then check new BC before hip repair. (7) Rhabdomyolysis Qualifiers: Rhabdomyolysis type: non-traumatic Qualified Code(s): M62.82 - Rhabdomyolysis Is this a current diagnosis for this admission?: Yes Plan: Improving, check CK level today. (8) Septic shock Is this a current diagnosis for this admission?: Yes Plan: Seems to be resolved (9) Diabetes mellitus type 2 in nonobese Is this a current diagnosis for this admission?: Yes Plan: Controlled (10) Hypokalemia Is this a current diagnosis for this admission?: Yes Plan: Level is still 3.0. Continue to replace. Plan Summary: Hopefully we can keep him off pressors and downgrade soon. Critical Time Critical Time (minutes): 35 Level of Care: ICU Anticipated discharge: SNF Anticipated DC Timeframe: Other -: 1. The care of a critical patient is a dynamic process. This note is a marketing representative synopsis but static in nature. The timeframe for treatments given in order is not necessarily the actual time these treatments may have been done. 2. This patient requires critical care secondary to ongoing requirements for therapy not offered or safe outside the critical care environment. Transfer to a lower level of care will result in altered life or limb morbidity and mortality. 3. Multidisciplinary rounds completed. 4. ABCDE bundle addressed.
[2019-11-29 08:03] LABS: APPEARANCE,URINE CLEAR; BILIRUBIN,URINE NEGATIVE (NEGATIVE); COLOR,URINE YELLOW; GLUCOSE, URINE NEGATIVE (NEGATIVE); KETONES,URINE NEGATIVE (NEGATIVE); LEUKOCYTE ESTERASE,URINE NEGATIVE (NEGATIVE); NITRITE,URINE NEGATIVE (NEGATIVE); PROTEIN,URINE NEGATIVE (NEGATIVE); URINE SPECIFIC GRAVITY 1.011; UROBILINOGEN,URINE NEGATIVE mg/dL (<2.0)
[2019-11-29] MEDS: PANTOPRAZOLE SODIUM 40 MG VIAL IV SCH (11:56)
[2019-11-29] MEDS: FUROSEMIDE INJ/PF 40 MG/4 ML SDV IV SCH ×2 (11:56→22:52)
--- NOTE | 2019-11-29 13:28 | RADIOLOGY REPORT (SQ) ---
EXAM DESCRIPTION: KUB/ABDOMEN (SINGLE VIEW) IMAGES COMPLETED DATE/TIME: 11/29/2019 1:08 pm REASON FOR STUDY: NGT placement COMPARISON: None. NUMBER OF VIEWS: One view. TECHNIQUE: Supine radiographic image of the abdomen acquired. LIMITATIONS: None. FINDINGS: Limited view the abdomen was submitted for NG tube placement. Tip lies in the left upper quadrant. Study is limited by respiratory motion. There is persistent small-bowel distention. IMPRESSION: NG tube has been placed. Tip overlies the left upper quadrant most likely within stomac h. Study is limited by respiratory motion. TECHNICAL DOCUMENTATION: JOB ID: [id number] 2010 [employer]- All Rights Reserved Reading location - IP/workstation name: [email or web address]
[2019-11-29] MEDS: POTASSIUM CHLORIDE 20 MEQ PACKET PO SCH ×2 (13:53→17:19)
[2019-11-29] MEDS: MIDODRINE HCL 5 MG TABLET NG SCH ×2 (13:53→17:19)
[2019-11-29] MEDS: CHOLECALCIFEROL (D3) 1,000 UNIT (25 MCG) TABLET NG SCH (13:53)
[2019-11-29] MEDS: DONEPEZIL HCL 5 MG TABLET NG SCH (13:54)
[2019-11-29] MEDS: MEMANTINE HCL 10 MG TABLET NG SCH ×2 (13:54→17:23)
[2019-11-29] MEDS: RINGERS SOLUTION,LACTATED 1,000 ML IV PRN (15:43)
[2019-11-29] MEDS: PHARMACY COMMUNICATION ORDER MC SCH (17:21)
[2019-11-29] MEDS: ATORVASTATIN CALCIUM 80 MG TABLET NG SCH (22:52)
[2019-11-30] MEDS: NAFCILLIN SODIUM 2 GM in DEXTROSE 5%-WATER 100 ML IV SCH ×3 (00:03→11:23)
[2019-11-30] MEDS ORDERED: MORPHINE SULFATE 10 MG/ML INJ IV PRN (02:40)
[2019-11-30 05:50] LABS: HEMOGLOBIN 8.3 g/dL (13.5-17.0); MEAN CORPUSCULAR HEMOGLOBIN 29.4 pg (27.0-33.4); MEAN CORPUSCULAR HGB CONC 34.6 g/dL (32.0-36.0); MEAN CORPUSCULAR VOLUME 85 fl (80-97); RED BLOOD COUNT 2.83 10^6/uL (4.35-5.55); RED CELL DISTRIBUTION WIDTH 15.9 % (11.5-14.0); WHITE BLOOD COUNT 12.6 10^3/uL (4.0-10.5)
[2019-11-30] MEDS: INSULIN REG, HUMAN 100 UNIT/ML 3 ML VIAL (PYX) SUBCUT SCH ×2 (05:53)
[2019-11-30 06:04] LABS: ANION GAP 9 (5-19); CALCIUM 7.9 mg/dL (8.4-10.2); CARBON DIOXIDE 25 mmol/L (22-30); CHLORIDE 111 mmol/L (98-107); GLUCOSE 191 mg/dL (75-110); POTASSIUM 3.6 mmol/L (3.6-5.0)
[2019-11-30 06:21] LABS: BLOOD UREA NITROGEN 139 mg/dL (7-20)
[2019-11-30 06:38] LABS: PLATELET COUNT 60 10^3/uL (150-450)
[2019-11-30 06:48] LABS: ABSOLUTE LYMPHOCYTES# (MANUAL) 0.4 10^3/uL (0.5-4.7); ABSOLUTE MONOCYTES # (MANUAL) 0.3 10^3/uL (0.1-1.4); BAND NEUTROPHILS % (MANUAL) 4 % (3-5); BASOPHILS % (MANUAL) 0 % (0-2); EOSINOPHILS % (MANUAL) 0 % (0-6); LYMPHOCYTES % (MANUAL) 3 % (13-45); MONOCYTES % (MANUAL) 2 % (3-13); SEGMENTED NEUTROPHILS % (MAN) 91 % (42-78); TOTAL CELLS COUNTED 100
[2019-11-30 06:49] LABS: ANISOCYTOSIS SLIGHT; BURR CELLS 1+; POIKILOCYTOSIS 1+
[2019-11-30 06:50] LABS: PLATELET COMMENT DECREASED; TOXIC GRANULATION SLIGHT
[2019-11-30 06:57] LABS: PLATELET LARGE PRESENT
--- NOTE | 2019-11-30 08:57 | RADIOLOGY REPORT (SQ) ---
EXAM DESCRIPTION: KUB/ABDOMEN (SINGLE VIEW) IMAGES COMPLETED DATE/TIME: 11/30/2019 8:34 am REASON FOR STUDY: verify placement ng COMPARISON: AP view of the abdomen from 11/29/2019. NUMBER OF VIEWS: One view. TECHNIQUE: An AP supine view of the abdomen was obtained. LIMITATIONS: None. FINDINGS: BOWEL GAS PATTERN: No dilated loops of bowel. CALCIFICATIONS: None. SOFT TISSUES: No abnormality. HARDWARE: The tip and side hole of the enteric tube project within the gastric lumen. BONES: No acute findings. OTHER: Pleural and parenchymal opacities in the inferior aspect of the left hemithorax that could rep resent a combination of pleural fluid and atelectasis. IMPRESSION: The tip and side hole of the enteric tube project within the gastric lumen. TECHNICAL DOCUMENTATION: JOB ID: [id number] 2010 [employer]- All Rights Reserved Reading location - IP/workstation name: [email or web address]
[2019-11-30] MEDS: POTASSIUM CHLORIDE 20 MEQ PACKET PO SCH (11:22)
[2019-11-30] MEDS: CHOLECALCIFEROL (D3) 1,000 UNIT (25 MCG) TABLET NG SCH (11:22)
[2019-11-30] MEDS: MEMANTINE HCL 10 MG TABLET NG SCH (11:22)
[2019-11-30] MEDS: ASPIRIN 81 MG TABLET, CHEWABLE PO SCH (11:22)
[2019-11-30] MEDS: DONEPEZIL HCL 5 MG TABLET NG SCH (11:23)
[2019-11-30] MEDS: PANTOPRAZOLE SODIUM 40 MG VIAL IV SCH (11:23)
[2019-11-30] MEDS: MIDODRINE HCL 5 MG TABLET NG SCH (11:23)
[2019-11-30] MEDS: FUROSEMIDE INJ/PF 40 MG/4 ML SDV IV SCH (11:24)
[2019-11-30] MEDS ORDERED: RINGERS SOLUTION,LACTATED 1,000 ML IV PRN (12:15)
--- NOTE | 2019-11-30 12:32 | PDOC CONSULTATION ---
Consultation Consult Date: 11/30/19 Provider Consulted: Estefania AGUDELO Consult reason:: MARY History of Present Illness Admission Date/PCP: 11/23/19 22:[facility] History of Present Illness: FEDERICA HOLLAND is a 79 year old male with a background history of hypertension/diabetes/hyperlipidemia/dementia was admitted with history of altered mental status. He has been to be seen for evaluation of MARY. Initial presentation was that he was in septic shock with accompanying acute rhabdomyolysis and he was growing MSSA bacteremia. Other acute incidents also included acute left intertrochanteric fracture of the femur nondisplaced. Transthoracic echocardiogram showed depressed LVEF of 35-40%/MR/TR with moderate pulmonary hypertension. Patient currently is rather hypersomnolent and not able to respond appropriately to questions. Therefore discussions were done with the treating nurse. Patient has now been transferred from the ICU back to the floor after recovery from septic shock off all pressors. His urine output is improving. His initial admission labs are shown a creatinine of 3+ and now is down to 2.5. Current labs and medications were reviewed. As per chart review the patient as being apparently bedridden for several months with history of sustaining multiple falls as per history gathered from his . He apparently also has been having melena for the past several days prior to his admission. Since admission he has been transfused. Currently patient looks very moribund. He has got bandages covering apparent foot ulcers. Later discussions were done with Nery Tenorio/ hospitalist who has spoken to his and she wants patient to be transitioned to hospice/comfort care only. Past Medical History Cardiac Medical History: Reports: Hyperlipidemia, Hypertension-primary Denies: Atrial Fibrillation, Coronary Artery Disease, Heart Murmur, Myocardial Infarction, Peripheral Vascular Disease Pulmonary Medical History: Denies: Asthma, Pneumonia, Sleep Apnea Neurological Medical History: Denies: Seizures Endocrine Medical History: Reports: Diabetes Mellitus Type 2 Denies: Hyperthyroidism, Hypothyroidism Renal/ Medical History: Reports: Benign Prostatic Hyperplasia Denies: End Stage Renal Disease GI Medical History: Denies: Crohn's Disease, Gastroesophageal Reflux Disease, Hiatal Hernia Musculoskeltal Medical History: Reports: Arthritis - knees Denies: Fibromyalgia, Rheumatoid Arthritis, Systemic Lupus Erythematosus Psychiatric Medical History: Reports: Depression, Post Traumatic Stress Disorder Denies: Bipolar Disorder, Dementia Past Surgical History Past Surgical History: Reports: Orthopedic Surgery - Right shoulder replacement, right knee replacement Denies: Appendectomy, Cholecystectomy, Colostomy, Coronary Artery Bypass Graft, Gastric Bypass Surgery, Herniorrhaphy, Pacemaker, Tonsillectomy Social History Lives with: Spouse/Significant other Smoking Status: Unknown if Ever Smoked Frequency of Alcohol Use: None Hx Recreational Drug Use: No Drugs: None Hx Prescription Drug Abuse: No - Advance Directive Resuscitation Status: Full Code Family History Parental Family History Reviewed: No - Patient unable to contribute. Children Family History Reviewed: No Sibling(s) Family History Reviewed.: No Medication/Allergy Home Medications: Lisinopril [Prinivil 40 mg Tablet] 40 mg PO DAILY 10/07/17 Atorvastatin Calcium [Lipitor 20 mg Tablet] 80 mg PO QHS 02/21/18 Acetaminophen [Pain Relief] 1,000 mg PO BIDP PRN 02/24/18 Donepezil HCl 10 mg PO DAILY 02/24/18 [place]-3 Fatty Acids/Fish Oil [Fish Oil 1,000 mg Capsule] 1,000 mg PO BID 1 04/27/17 Cholecalciferol (Vitamin D3) [Vitamin D3 1000 Unit Tablet] 2,000 unit PO DAILY 11/24/19 Memantine HCl [Namenda 10 mg Tablet] 10 mg PO BID 11/24/19 Allergies/Adverse Reactions: No Known Allergies Allergy (Verified 02/28/18 08:46) Review of Systems ROS unobtainable: Due to mental status - Chart review was done. Physical Exam Vital Signs: Temp Pulse Resp BP Pulse Ox 98.4 F 86 20 134/88 H 97 11/30/19 03:16 11/30/19 03:16 11/30/19 03:16 11/30/19 03:16 11/30/19 03:16 Intake & Output 11/29/19 11/30/19 12/01/19 06:59 06:59 06:59 Intake Total 1823 190 10 Output Total 3652 9715 Balance -1302 -1665 10 Weight 78.9 kg 83.7 kg General appearance: PRESENT: no acute distress, disheveled Exam: Looks very moribund and very poorly. Eye exam: PRESENT: EOMI, PERRLA Mouth exam: PRESENT: moist Neck exam: ABSENT: lymphadenopathy, meningismus, tenderness, thyromegaly, tracheal deviation Respiratory exam: PRESENT: clear to auscultation jeaneth, decreased breath sounds. ABSENT: crackles Cardiovascular exam: PRESENT: +S1, +S2, systolic murmur GI/Abdominal exam: PRESENT: normal bowel sounds, soft. ABSENT: organomegaly, tenderness Extremities exam: PRESENT: pedal edema Neurological exam: PRESENT: altered Skin exam: PRESENT: mottled - Bilateral feet which is covered with the bandages. Results Laboratory Results: 11/30/19 05:09 11/30/19 05:09 11/30/19 11/30/19 05:09 05:09 WBC 12.6 H RBC 2.83 L Hgb 8.3 L Hct 24.0 L MCV 85 MCH 29.4 MCHC 34.6 RDW 15.9 H Plt Count 60 L Seg Neutrophils % Not Reportable Sodium 145.1 H Potassium 3.6 Chloride 111 H Carbon Dioxide 25 Anion Gap 9 BUN 139 H Creatinine 2.57 H Est GFR ( Amer) 29 L Glucose 191 H Calcium 7.9 L 11/27/19 05:39 Blood Blood Culture (PCR) - Final Staphylococcus Aureus 11/27/19 05:39 Blood Blood Culture - Final Staphylococcus Aureus 11/27/19 04:22 Blood Blood Culture (PCR) - Final Staphylococcus Aureus 11/27/19 04:22 Blood Blood Culture - Final Staphylococcus Aureus 11/23/19 11/23/19 11/24/19 17:41 17:41 00:28 Creatine Kinase 4086 H 5523 H CK-MB (CK-2) Troponin I 0.170 NT-Pro-B Natriuret Pep 11/24/19 11/24/19 11/24/19 00:28 03:20 03:20 Creatine Kinase CK-MB (CK-2) Troponin I 0.231 0.240 NT-Pro-B Natriuret Pep 1070 H 11/24/19 11/24/19 11/24/19 06:32 06:32 11:00 Creatine Kinase 3765 H CK-MB (CK-2) 23.10 H Troponin I 0.375 NT-Pro-B Natriuret Pep 11/24/19 11/24/19 11/24/19 14:50 18:45 22:13 Creatine Kinase CK-MB (CK-2) Troponin I 0.569 0.699 0.750 NT-Pro-B Natriuret Pep 6100 H 11/25/19 11/26/19 11/29/19 04:15 11:10 05:48 Creatine Kinase 966 H CK-MB (CK-2) Troponin I 0.743 0.381 NT-Pro-B Natriuret Pep 11/30/19 05:09 Creatine Kinase 600 H CK-MB (CK-2) Troponin I NT-Pro-B Natriuret Pep Impressions: Chest CT 11/23/19 20:09 IMPRESSION: Bibasilar airspace disease and adjacent effusions. Pneumonia could have this appearance. Given bibasilar distribution, aspiration is a consideration. No high-grade bowel obstruction. Moderate hard stool within the colon. Acute intertrochanteric fracture left femur. Study is degraded by artifact from the patient's arms and motion. Additionally given stranding within all the imaged fat, tissue planes are difficult to discern.. Head CT 11/23/19 20:09 IMPRESSION: Imaging is degraded by patient motion, with resultant artifact. The best possible images were obtained. No acute intracranial process. Age-related involutional changes are identified. Presumed old small vessel ischemic changes are seen predominantly in a periventricular distribution.. The cause of the patient's metal status change is not identified on this examination. Abdomen/Pelvis CT 11/23/19 20:10 IMPRESSION: Bibasilar airspace disease and adjacent effusions. Pneumonia could have this appearance. Given bibasilar distribution, aspiration is a consideration. No high-grade bowel obstruction. Moderate hard stool within the colon. Acute intertrochanteric fracture left femur. Study is degraded by artifact from the patient's arms and motion. Additionally given stranding within all the imaged fat, tissue planes are difficult to discern.. Cervical Spine CT 11/23/19 22:17 IMPRESSION: No acute fracture or subluxation of the cervical spine. Femur X-Ray 11/23/19 22:43 IMPRESSION: Intertrochanteric fracture. copyright 2010 [employer]- All Rights Reserved Pelvis X-Ray 11/23/19 22:43 IMPRESSION: Intertrochanteric fracture of the left hip. copyright 2010 [employer]- All Rights Reserved Forearm X-Ray 11/26/19 00:00 IMPRESSION: No fracture. Humerus X-Ray 11/26/19 00:00 IMPRESSION: No fracture. Venous Doppler Study 11/27/19 00:00 IMPRESSION: 1. NO EVIDENCE DVT OR SVT RIGHT ARM. Clavicle X-Ray 11/27/19 07:51 IMPRESSION: 1. No evidence of acute bony abnormality. 2. 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 Chest X-Ray 11/28/19 00:00 IMPRESSION: Tip of the enteric tube coiled in the esophagus. Adjustment recommended. Worsening airspace opacity right lung base copyright 2010 [employer]- All Rights Reserved KUB X-Ray 11/30/19 07:37 IMPRESSION: The tip and side hole of the enteric tube project within the gastric lumen. Assessment & Plan - Diagnosis (1) Septic shock Is this a current diagnosis for this admission?: Yes Plan: Currently recovering. Off pressors.Grew MSSA bacteremia. (2) Acute kidney injury Is this a current diagnosis for this admission?: Yes Plan: Nonoliguric. Has recovered partially. Will make changes in his fluids and diuretic regimen. Not a candidate for renal replacement therapy for obvious reasons. Also patient's has transitioned the patient to comfort care/ hospice now. Therefore will sign off. (3) Cardiomyopathy Qualifiers: Cardiomyopathy type: ischemic Qualified Code(s): I25.5 - Ischemic cardiomyopathy Is this a current diagnosis for this admission?: Yes Plan: Status quo. (4) Diabetic foot ulcers Qualifiers: Diabetic foot ulcer location: midfoot Diabetes mellitus type: type 2 Laterality: right Non-pressure ulcer stage: limited to breakdown of skin Qualified Code(s): E11.621 - Type 2 diabetes mellitus with foot ulcer; L97.411 - Non-pressure chronic ulcer of right heel and midfoot limited to breakdown of skin Is this a current diagnosis for this admission?: Yes Plan: On antibiotics. As per hospitalist. (5) Femur fracture, left Qualifiers: Encounter type: initial encounter Femur location: intertrochanteric Fracture type: closed Fracture alignment: nondisplaced Qualified Code(s): S72.145A - Nondisplaced intertrochanteric fracture of left femur, initial encounter for closed fracture Is this a current diagnosis for this admission?: Yes Plan: Conservative management. (6) Hypokalemia Is this a current diagnosis for this admission?: Yes Plan: Currently stable. (7) MSSA bacteremia Is this a current diagnosis for this admission?: Yes Plan: On IV antibiotics
--- NOTE | 2019-11-30 12:41 | PDOC PROGRESS REPORT ---
Subjective Progress Note for:: 11/30/19 Subjective:: The patient is a 79 year old with a past medical history significant for hypertension, hyperlipidemia, DM 2, GERD, arthritis, depression, PTSD, dementia who was admitted to the anger control counselor service on 11/24/2019 with septic shock related to aspiration pneumonia and MSSA bacteremia and found to have a left hip fracture. Patient did require pressor support. Patient's is now interested in transitioning to Comfort Care Measures with [facility] admission (if can be arranged). Patient was seen on morning rounds. He was found resting in bed, comfortably, on room air. He did not respond to voice, but did grimace and withdraw slightly to pain. ROS is thus limited. He does appear to be comfortable and is not noted to be in acute distress at this time. No concerns per nursing. Reason For Visit: SEPTIC SHOCK, RHABDOMYLYSIS, ACUTE RF Physical Exam Vital Signs: Temp Pulse Resp BP Pulse Ox 98.4 F 86 20 134/88 H 97 11/30/19 03:16 11/30/19 03:16 11/30/19 03:16 11/30/19 03:16 11/30/19 03:16 Intake & Output 11/29/19 11/30/19 12/01/19 06:59 06:59 06:59 Intake Total 1823 190 10 Output Total 3125 1855 Balance -1302 -1665 10 Weight 78.9 kg 83.7 kg General appearance: PRESENT: no acute distress, thin, well-nourished Head exam: PRESENT: atraumatic, normocephalic Eye exam: PRESENT: conjunctiva pink, EOMI, PERRLA. ABSENT: scleral icterus Mouth exam: PRESENT: moist, tongue midline Respiratory exam: PRESENT: clear to auscultation jeaneth, decreased breath sounds - throughout, symmetrical, unlabored, other - room air. ABSENT: rales, rhonchi, wheezes Cardiovascular exam: PRESENT: RRR. ABSENT: diastolic murmur, rubs, systolic murmur Pulses: PRESENT: +1 pedal pulses bilateral Vascular exam: PRESENT: pallor GI/Abdominal exam: PRESENT: normal bowel sounds, soft. ABSENT: distended, guarding, mass, organolmegaly, rebound, tenderness Rectal exam: PRESENT: deferred, other - FMS Gentrourinary exam: PRESENT: indwelling catheter Extremities exam: PRESENT: +1 edema - all extremities. ABSENT: calf tenderness, clubbing, pedal edema Neurological exam: PRESENT: other - withdrew to pain. ABSENT: motor sensory deficit Skin exam: PRESENT: dry, warm, other - numerous shallow venous-stasis ulceration and abrasions. Deep tissue injuries noted to lateral areas bilateral feet. See nursing notes for detailed wound comments.. ABSENT: cyanosis, rash Results Laboratory Results: 11/30/19 05:09 11/30/19 05:09 11/30/19 11/30/19 05:09 05:09 WBC 12.6 H RBC 2.83 L Hgb 8.3 L Hct 24.0 L MCV 85 MCH 29.4 MCHC 34.6 RDW 15.9 H Plt Count 60 L Seg Neutrophils % Not Reportable Sodium 145.1 H Potassium 3.6 Chloride 111 H Carbon Dioxide 25 Anion Gap 9 BUN 139 H Creatinine 2.57 H Est GFR ( Amer) 29 L Glucose 191 H Calcium 7.9 L 11/27/19 05:39 Blood Blood Culture (PCR) - Final Staphylococcus Aureus 11/27/19 05:39 Blood Blood Culture - Final Staphylococcus Aureus 11/27/19 04:22 Blood Blood Culture (PCR) - Final Staphylococcus Aureus 11/27/19 04:22 Blood Blood Culture - Final Staphylococcus Aureus 11/23/19 11/23/19 11/24/19 17:41 17:41 00:28 Creatine Kinase 4086 H 5523 H CK-MB (CK-2) Troponin I 0.170 NT-Pro-B Natriuret Pep 11/24/19 11/24/19 11/24/19 00:28 03:20 03:20 Creatine Kinase CK-MB (CK-2) Troponin I 0.231 0.240 NT-Pro-B Natriuret Pep 1070 H 11/24/19 11/24/19 11/24/19 06:32 06:32 11:00 Creatine Kinase 3765 H CK-MB (CK-2) 23.10 H Troponin I 0.375 NT-Pro-B Natriuret Pep 11/24/19 11/24/19 11/24/19 14:50 18:45 22:13 Creatine Kinase CK-MB (CK-2) Troponin I 0.569 0.699 0.750 NT-Pro-B Natriuret Pep 6100 H 11/25/19 11/26/19 11/29/19 04:15 11:10 05:48 Creatine Kinase 966 H CK-MB (CK-2) Troponin I 0.743 0.381 NT-Pro-B Natriuret Pep 11/30/19 05:09 Creatine Kinase 600 H CK-MB (CK-2) Troponin I NT-Pro-B Natriuret Pep Impressions: Chest CT 11/23/19 20:09 IMPRESSION: Bibasilar airspace disease and adjacent effusions. Pneumonia could have this appearance. Given bibasilar distribution, aspiration is a consideration. No high-grade bowel obstruction. Moderate hard stool within the colon. Acute intertrochanteric fracture left femur. Study is degraded by artifact from the patient's arms and motion. Additionally given stranding within all the imaged fat, tissue planes are difficult to discern.. Head CT 11/23/19 20:09 IMPRESSION: Imaging is degraded by patient motion, with resultant artifact. The best possible images were obtained. No acute intracranial process. Age-related involutional changes are identified. Presumed old small vessel ischemic changes are seen predominantly in a periventricular distribution.. The cause of the patient's metal status change is not identified on this examination. Abdomen/Pelvis CT 11/23/19 20:10 IMPRESSION: Bibasilar airspace disease and adjacent effusions. Pneumonia could have this appearance. Given bibasilar distribution, aspiration is a consideration. No high-grade bowel obstruction. Moderate hard stool within the colon. Acute intertrochanteric fracture left femur. Study is degraded by artifact from the patient's arms and motion. Additionally given stranding within all the imaged fat, tissue planes are difficult to discern.. Cervical Spine CT 11/23/19 22:17 IMPRESSION: No acute fracture or subluxation of the cervical spine. Femur X-Ray 11/23/19 22:43 IMPRESSION: Intertrochanteric fracture. copyright 2010 [employer]- All Rights Reserved Pelvis X-Ray 11/23/19 22:43 IMPRESSION: Intertrochanteric fracture of the left hip. copyright 2010 [employer]- All Rights Reserved Forearm X-Ray 11/26/19 00:00 IMPRESSION: No fracture. Humerus X-Ray 11/26/19 00:00 IMPRESSION: No fracture. Venous Doppler Study 11/27/19 00:00 IMPRESSION: 1. NO EVIDENCE DVT OR SVT RIGHT ARM. Clavicle X-Ray 11/27/19 07:51 IMPRESSION: 1. No evidence of acute bony abnormality. 2. 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 Chest X-Ray 11/28/19 00:00 IMPRESSION: Tip of the enteric tube coiled in the esophagus. Adjustment recommended. Worsening airspace opacity right lung base copyright 2010 [employer]- All Rights Reserved KUB X-Ray 11/30/19 07:37 IMPRESSION: The tip and side hole of the enteric tube project within the gastric lumen. Assessment and Plan - Diagnosis (1) MSSA bacteremia Is this a current diagnosis for this admission?: Yes Plan: Unclear source. Patient does have numerous diabetic foot wounds, shallow venous stasis ulcerations, and abrasions. Possible skin wound has the source. He also presented with evidence of aspiration pneumonia. Blood cultures (x3 sets; 12 bottles) are positive for MSSA. TTE did not evidence vegetations. Initially treated with IV Naficillin. Spoke w/ patient's , Phyllis Rincon today; desires transition to Comfort Care Measures. We did discuss that upon stopping IV antibiotics, the patient's progression through end-of-life would like accelerate. She is understanding and asks that we ensure he is comfortable. Discharge planning consulted for hospice placement. (2) Intertrochanteric fracture of left femur Qualifiers: Encounter type: subsequent encounter Fracture type: closed Fracture alignment: nondisplaced Fracture healing: with routine healing Qualified Code(s): S72.145D - Nondisplaced intertrochanteric fracture of left femur, subsequent encounter for closed fracture with routine healing Is this a current diagnosis for this admission?: Yes Plan: Conservative treatment; analgesics as needed. Transition to Comfort Care Measures. Discharge planning consulted for hospice placement. (3) Dementia Qualifiers: Dementia type: Alzheimer's disease Is this a current diagnosis for this admission?: Yes Plan: This is an end stage process. Spoke with today; desires to transition to Comfort Care Measures. Discharge planning consulted. (4) Diabetic foot ulcers Qualifiers: Diabetic foot ulcer location: midfoot Diabetes mellitus type: type 2 Laterality: right Non-pressure ulcer stage: limited to breakdown of skin Qualified Code(s): E11.621 - Type 2 diabetes mellitus with foot ulcer; L97.411 - Non-pressure chronic ulcer of right heel and midfoot limited to breakdown of skin Is this a current diagnosis for this admission?: Yes Plan: Unchanged. Possible source of MSSA bacteremia. Prafo boots, wound care per nursing protocol. (5) Hypokalemia Is this a current diagnosis for this admission?: Yes Plan: Replete. [employer]; no longer following labs. (6) Rhabdomyolysis Qualifiers: Rhabdomyolysis type: non-traumatic Qualified Code(s): M62.82 - Rha bdomyolysis Is this a current diagnosis for this admission?: Yes Plan: Improving, CK 4k-> 5k-> 600 No longer following. (7) Septic shock Is this a current diagnosis for this admission?: Yes Plan: Resolved. Patient with sepsis r/t aspiration pneumonia and MSSA bacteremia, present on admission, evidenced by fever/hypothermia, hypotension, tachypnea, thrombocytosis. a/ckd, elevated lactic acid, elevated transaminase. Initially managed in the ICU. Required pressor support. (8) Diabetes mellitus type 2 in nonobese Is this a current diagnosis for this admission?: Yes Plan: Controlled (9) Acute on chronic renal failure Qualifiers: Acute renal failure type: unspecified Is this a current diagnosis for this admission?: Yes Plan: Secondary to sepsis. Some improvement. Initially consulted nephrology for further assistance; however, following discussions with , we are now transitioning to [employer]. Appreciate Dr. Marvin' time. (10) Cardiomyopathy Qualifiers: Cardiomyopathy type: ischemic Qualified Code(s): I25.5 - Ischemic cardiomyopathy Is this a current diagnosis for this admission?: Yes (11) Aspiration pneumonia Qualifiers: Laterality: right Lung location: middle lobe of lung Is this a current diagnosis for this admission?: Yes - Time Time Spent with patient: 35 or more minutes Medications reviewed and adjusted accordingly: Yes Anticipated Discharge Disposition: Hospice Center Anticipated Discharge Timeframe: when bed available
[2019-11-30] MEDS ORDERED: FUROSEMIDE INJ/PF 40 MG/4 ML SDV IV SCH (14:00)
[2019-11-30] MEDS ORDERED: SCOPOLAMINE HYDROBROMIDE 1.5 MG PATCH.TD72 TD ONE (14:00)
[2019-12-01] MEDS: PANTOPRAZOLE SODIUM 40 MG VIAL IV SCH (10:27)
--- NOTE | 2019-12-01 13:38 | PDOC PROGRESS REPORT ---
Subjective Progress Note for:: 12/01/19 Subjective:: The patient is a 79 year old with a past medical history significant for hypertension, hyperlipidemia, DM 2, GERD, arthritis, depression, PTSD, dementia who was admitted to the [facility] service on 11/24/2019 with septic shock related to aspiration pneumonia and MSSA bacteremia and found to have a left hip fracture. Patient did require pressor support. Patient's is now interested in transitioning to Comfort Care Measures with [facility] admission (if can be arranged). Patient was seen on morning rounds. He was found resting in bed, comfortably, on supplemental oxygen. He did not respond to voice; opened eyes but did not make eye contact. He does not answer questions or follow directions. ROS is thus limited. He does appear to be comfortable and is not noted to be in acute distress at this time. No concerns per nursing. Reason For Visit: SEPTIC SHOCK, RHABDOMYLYSIS, ACUTE RF Physical Exam Vital Signs: Temp Pulse Resp BP Pulse Ox 98.4 F 65 20 134/88 H 97 12/01/19 10:00 11/30/19 07:00 11/30/19 03:16 11/30/19 03:16 11/30/19 03:16 Intake & Output 11/30/19 12/01/19 12/02/19 06:59 06:59 06:59 Intake Total 190 10 Output Total 1855 875 Balance -1665 -865 Weight 83.7 kg 87.4 kg General appearance: PRESENT: no acute distress, thin, other - chronically ill appearing Head exam: PRESENT: atraumatic, normocephalic Mouth exam: PRESENT: dry mucosa Teeth exam: PRESENT: poor dentation Respiratory exam: PRESENT: clear to auscultation jeaneth, symmetrical, unlabored. ABSENT: rales, rhonchi, wheezes Cardiovascular exam: PRESENT: RRR Pulses: PRESENT: +1 pedal pulses bilateral GI/Abdominal exam: PRESENT: hypoactive bowel sounds, soft. ABSENT: distended, guarding, mass, organolmegaly, rebound, tenderness Rectal exam: PRESENT: other - fecal management system Gentrourinary exam: PRESENT: indwelling catheter Neurological exam: PRESENT: alert, awake. ABSENT: oriented to person, oriented to place, oriented to time, oriented to situation, aphasic Skin exam: PRESENT: dry, warm, other - numerous shallow venous-stasis ulceration and abrasions. Deep tissue injuries noted to lateral areas bilateral feet. See nursing notes for detailed wound comments. ABSENT: intact Results Laboratory Results: 11/30/19 05:09 11/30/19 05:09 11/23/19 11/23/19 11/24/19 17:41 17:41 00:28 Creatine Kinase 4086 H 5523 H CK-MB (CK-2) Troponin I 0.170 NT-Pro-B Natriuret Pep 11/24/19 11/24/19 11/24/19 00:28 03:20 03:20 Creatine Kinase CK-MB (CK-2) Troponin I 0.231 0.240 NT-Pro-B Natriuret Pep 1070 H 11/24/19 11/24/19 11/24/19 06:32 06:32 11:00 Creatine Kinase 3765 H CK-MB (CK-2) 23.10 H Troponin I 0.375 NT-Pro-B Natriuret Pep 11/24/19 11/24/19 11/24/19 14:50 18:45 22:13 Creatine Kinase CK-MB (CK-2) Troponin I 0.569 0.699 0.750 NT-Pro-B Natriuret Pep 6100 H 11/25/19 11/26/19 11/29/19 04:15 11:10 05:48 Creatine Kinase 966 H CK-MB (CK-2) Troponin I 0.743 0.381 NT-Pro-B Natriuret Pep 11/30/19 05:09 Creatine Kinase 600 H CK-MB (CK-2) Troponin I NT-Pro-B Natriuret Pep Impressions: Chest CT 11/23/19 20:09 IMPRESSION: Bibasilar airspace disease and adjacent effusions. Pneumonia could have this appearance. Given bibasilar distribution, aspiration is a consideration. No high-grade bowel obstruction. Moderate hard stool within the colon. Acute intertrochanteric fracture left femur. Study is degraded by artifact from the patient's arms and motion. Additionally given stranding within all the imaged fat, tissue planes are difficult to discern.. Head CT 11/23/19 20:09 IMPRESSION: Imaging is degraded by patient motion, with resultant artifact. The best possible images were obtained. No acute intracranial process. Age-related involutional changes are identified. Presumed old small vessel ischemic changes are seen predominantly in a periventricular distribution.. The cause of the patient's metal status change is not identified on this examination. Abdomen/Pelvis CT 11/23/19 20:10 IMPRESSION: Bibasilar airspace disease and adjacent effusions. Pneumonia could have this appearance. Given bibasilar distribution, aspiration is a consideration. No high-grade bowel obstruction. Moderate hard stool within the colon. Acute intertrochanteric fracture left femur. Study is degraded by artifact from the patient's arms and motion. Additionally given stranding within all the imaged fat, tissue planes are difficult to discern.. Cervical Spine CT 11/23/19 22:17 IMPRESSION: No acute fracture or subluxation of the cervical spine. Femur X-Ray 11/23/19 22:43 IMPRESSION: Intertrochanteric fracture. copyright 2010 [email or web address]- All Rights Reserved Pelvis X-Ray 11/23/19 22:43 IMPRESSION: Intertrochanteric fracture of the left hip. copyright 2010 [email or web address]- All Rights Reserved Forearm X-Ray 11/26/19 00:00 IMPRESSION: No fracture. Humerus X-Ray 11/26/19 00:00 IMPRESSION: No fracture. Venous Doppler Study 11/27/19 00:00 IMPRESSION: 1. NO EVIDENCE DVT OR SVT RIGHT ARM. Clavicle X-Ray 11/27/19 07:51 IMPRESSION: 1. No evidence of acute bony abnormality. 2. 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 Chest X-Ray 11/28/19 00:00 IMPRESSION: Tip of the enteric tube coiled in the esophagus. Adjustment recommended. Worsening airspace opacity right lung base copyright 2011 [email or web address]- All Rights Reserved KUB X-Ray 11/30/19 07:37 IMPRESSION: The tip and side hole of the enteric tube project within the gas tric lumen. Assessment and Plan - Diagnosis (1) MSSA bacteremia Is this a current diagnosis for this admission?: Yes Plan: Unclear source. Patient does have numerous diabetic foot wounds, shallow venous stasis ulcerations, and abrasions. Possible skin wound has the source. He also presented with evidence of aspiration pneumonia. Blood cultures (x3 sets; 12 bottles) are positive for MSSA. TTE did not evidence vegetations. Initially treated with IV Naficillin. Spoke w/ patient's , Phyllis Rincon today; desires transition to Comfort Care Measures. We did discuss that upon stopping IV antibiotics, the patient's progression through end-of-life would like accelerate. She is understanding and asks that we ensure he is comfortable. Discharge planning consulted for hospice placement. (2) Intertrochanteric fracture of left femur Qualifiers: Encounter type: subsequent encounter Fracture type: closed Fracture alignment: nondisplaced Fracture healing: with routine healing Qualified Code(s): S72.145D - Nondisplaced intertrochanteric fracture of left femur, subsequent encounter for closed fracture with routine healing Is this a current diagnosis for this admission?: Yes Plan: Conservative treatment; analgesics as needed. Transition to Comfort Care Measures. Discharge planning consulted for hospice placement. (3) Dementia Qualifiers: Dementia type: Alzheimer's disease Is this a current diagnosis for this admission?: Yes Plan: This is an end stage process. Spoke with yesterday; desires to transition to Comfort Care Measures. Discharge planning consulted. (4) Diabetic foot ulcers Qualifiers: Diabetic foot ulcer location: midfoot Diabetes mellitus type: type 2 Laterality: right Non-pressure ulcer stage: limited to breakdown of skin Qualified Code(s): E11.621 - Type 2 diabetes mellitus with foot ulcer; L97.411 - Non-pressure chronic ulcer of right heel and midfoot limited to breakdown of skin Is this a current diagnosis for this admission?: Yes Plan: Unchanged. Possible source of MSSA bacteremia. Prafo boots, wound care per nursing protocol. (5) Hypokalemia Is this a current diagnosis for this admission?: Yes Plan: Replete. 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 (6) Rhabdomyolysis Qualifiers: Rhabdomyolysis type: non-traumatic Qualified Code(s): M62.82 - Rhabdomyolysis Is this a current diagnosis for this admission?: Yes Plan: Improving, CK 4k-> 5k-> 600 No longer following. (7) Septic shock Is this a current diagnosis for this admission?: Yes Plan: Resolved. Patient with sepsis r/t aspiration pneumonia and MSSA bacteremia, present on admission, evidenced by fever/hypothermia, hypotension, tachypnea, thrombocytosis. a/ckd, elevated lactic acid, elevated transaminase. Initially managed in the ICU. Required pressor support. (8) Diabetes mellitus type 2 in nonobese Is this a current diagnosis for this admission?: Yes Plan: Controlled (9) Acute on chronic renal failure Qualifiers: Acute renal failure type: unspecified Is this a current diagnosis for this admission?: Yes Plan: Secondary to sepsis. Some improvement. Initially consulted nephrology for further assistance; however, following discussions with , we are now transitioning to PERINATAL SPECIALIST. Appreciate Dr. Marvin' time. (10) Cardiomyopathy Qualifiers: Cardiomyopathy type: ischemic Qualified Code(s): I25.5 - Ischemic cardiomyopathy Is this a current diagnosis for this admission?: Yes (11) Aspiration pneumonia Qualifiers: Laterality: right Lung location: middle lobe of lung Is this a current diagnosis for this admission?: Yes - Time Time Spent with patient: 25-34 minutes Medications reviewed and adjusted accordingly: Yes Anticipated Discharge Disposition: Hospice Center Anticipated Discharge Timeframe: when bed available
[2019-12-01] MEDS: MORPHINE SULFATE 10 MG/ML INJ IV PRN (22:28)
[2019-12-01] MEDS: LORAZEPAM INJ 2 MG/1 ML VIAL IV PRN (22:28)
[2019-12-02] MEDS: MORPHINE SULFATE 10 MG/ML INJ IV PRN ×3 (03:02→11:03)
[2019-12-02] MEDS: LORAZEPAM INJ 2 MG/1 ML VIAL IV PRN ×2 (05:38→11:04)
--- NOTE | 2019-12-02 16:21 | PDOC PROGRESS REPORT ---
Subjective Progress Note for:: 12/02/19 Subjective:: The patient is a 79 year old with a past medical history significant for hypertension, hyperlipidemia, DM 2, GERD, arthritis, depression, PTSD, dementia who was admitted to the [facility] personnel cler[facility] service on 11/24/2019 with septic shock related to aspiration pneumonia and MSSA bacteremia and found to have a left hip fracture. Patient did require pressor support. Patient's is now interested in transitioning to Comfort Care Measures with [facility] admission (if can be arranged). Patient was seen on morning rounds. He was found resting in bed, comfortably, on supplemental oxygen at 3lpm. Not home O2 dependant. He did not respond to voice. Does withdraw slightly to touch. He does not answer questions or follow directions. ROS is thus limited. He does appear to be comfortable and is not noted to be in acute distress at this time. No concerns per nursing. Reason For Visit: SEPTIC SHOCK, RHABDOMYLYSIS, ACUTE RF Physical Exam Vital Signs: Temp Pulse Resp BP Pulse Ox 97.4 F 91 16 105/42 L 100 12/02/19 12:13 12/02/19 12:13 12/02/19 12:13 12/02/19 12:13 12/02/19 12:13 Intake & Output 12/01/19 12/02/19 12/03/19 06:59 06:59 06:59 Intake Total 10 0 Output Total 875 450 Balance -865 -450 Weight 87.4 kg 85 kg General appearance: PRESENT: no acute distress, thin, well-developed, other - Chronically ill-appearing Head exam: PRESENT: atraumatic, normocephalic Eye exam: PRESENT: conjunctiva pink, EOMI, PERRLA. ABSENT: scleral icterus Mouth exam: PRESENT: dry mucosa, tongue midline Respiratory exam: PRESENT: clear to auscultation jeaneth, decreased breath sounds, symmetrical. ABSENT: rales, rhonchi, wheezes Cardiovascular exam: PRESENT: RRR. ABSENT: diastolic murmur, rubs, systolic murmur Rectal exam: PRESENT: other - Fecal management system Gentrourinary exam: PRESENT: indwelling catheter Extremities exam: PRESENT: +1 edema - BLE. ABSENT: calf tenderness, clubbing, pedal edema Neurological exam: PRESENT: other - Obtunded. ABSENT: motor sensory deficit Skin exam: PRESENT: dry, warm, other - numerous shallow venous-stasis ulceration and abrasions. Deep tissue injuries noted to lateral areas bilateral feet. See nursing notes for detailed wound comments. ABSENT: cyanosis, rash Results Laboratory Results: 11/30/19 05:09 11/30/19 05:09 11/30/19 08:40 Blood Blood Culture (PCR) - Final Staphylococcus Aureus 11/30/19 08:30 Blood Blood Culture (PCR) - Final Staphylococcus Aureus 11/23/19 11/23/19 11/24/19 17:41 17:41 00:28 Creatine Kinase 4086 H 5523 H CK-MB (CK-2) Troponin I 0.170 NT-Pro-B Natriuret Pep 11/24/19 11/24/19 11/24/19 00:28 03:20 03:20 Creatine Kinase CK-MB (CK-2) Troponin I 0.231 0.240 NT-Pro-B Natriuret Pep 1070 H 11/24/19 11/24/19 11/24/19 06:32 06:32 11:00 Creatine Kinase 3765 H CK-MB (CK-2) 23.10 H Troponin I 0.375 NT-Pro-B Natriuret Pep 11/24/19 11/24/19 11/24/19 14:50 18:45 22:13 Creatine Kinase CK-MB (CK-2) Troponin I 0.569 0.699 0.750 NT-Pro-B Natriuret Pep 6100 H 11/25/19 11/26/19 11/29/19 04:15 11:10 05:48 Creatine Kinase 966 H CK-MB (CK-2) Troponin I 0.743 0.381 NT-Pro-B Natriuret Pep 11/30/19 05:09 Creatine Kinase 600 H CK-MB (CK-2) Troponin I NT-Pro-B Natriuret Pep Impressions: Chest CT 11/23/19 20:09 IMPRESSION: Bibasilar airspace disease and adjacent effusions. Pneumonia could have this appearance. Given bibasilar distribution, aspiration is a consideration. No high-grade bowel obstruction. Moderate hard stool within the colon. Acute intertrochanteric fracture left femur. Study is degraded by artifact from the patient's arms and motion. Additionally given stranding within all the imaged fat, tissue planes are difficult to discern.. Head CT 11/23/19 20:09 IMPRESSION: Imaging is degraded by patient motion, with resultant artifact. The best possible images were obtained. No acute intracranial process. Age-related involutional changes are identified. Presumed old small vessel ischemic changes are seen predominantly in a periventricular distribution.. The cause of the patient's metal status change is not identified on this examination. Abdomen/Pelvis CT 11/23/19 20:10 IMPRESSION: Bibasilar airspace disease and adjacent effusions. Pneumonia could have this appearance. Given bibasilar distribution, aspiration is a consideration. No high-grade bowel obstruction. Moderate hard stool within the colon. Acute intertrochanteric fracture left femur. Study is degraded by artifact from the patient's arms and motion. Additionally given stranding within all the imaged fat, tissue planes are difficult to discern.. Cervical Spine CT 11/23/19 22:17 IMPRESSION: No acute fracture or subluxation of the cervical spine. Femur X-Ray 11/23/19 22:43 IMPRESSION: Intertrochanteric fracture. copyright 2010 [employer]- All Rights Reserved Pelvis X-Ray 11/23/19 22:43 IMPRESSION: Intertrochanteric fracture of the left hip. copyright 2010 [employer]- All Rights Reserved Forearm X-Ray 11/26/19 00:00 IMPRESSION: No fracture. Humerus X-Ray 11/26/19 00:00 IMPRESSION: No fracture. Venous Doppler Study 11/27/19 00:00 IMPRESSION: 1. NO EVIDENCE DVT OR SVT RIGHT ARM. Clavicle X-Ray 11/27/19 07:51 IMPRESSION: 1. No evidence of acute bony abnormality. 2. 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 Chest X-Ray 11/28/19 00:00 IMPRESSION: Tip of the enteric tube coiled in the esophagus. Adjustment recommended. Worsening airspace opacity right lung base copyright 2010 [employer]- All Rights Reserved KUB X-Ray 11/30/19 07:37 IMPRESSION: The tip and side hole of the enteric tube project within the gastric lumen. Assessment and Plan - Diagnosis (1) Comfort measures only status Is this a current diagnosis for this admission?: Yes Plan: Family has expressed desire to transition to comfort care only. He is provided IV Ativan and IV Morphine, as needed, for symptoms management. Scopolamine patch for management of oral secretions. May be possible to arrange for inpatient-Hospice transfer. Discharge planning is consulted. (2) MSSA bacteremia Is this a current diagnosis for this admission?: Yes Plan: Unclear source. Patient does have numerous diabetic foot wounds, shallow venous stasis ulcerations, and abrasions. Possible skin wound has the source. He also presented with evidence of aspiration pneumonia. Blood cultures (x3 sets; 12 bottles) are positive for MSSA. TTE did not evidence vegetations. Initially treated with IV Naficillin. Spoke w/ patient's , Phyllis Rincon; desires transition to Comfort Care Measures. We did discuss that upon stopping IV antibiotics, the patient's progression through end-of-life would like accelerate. She is understanding and asks that we ensure he is comfortable. Discharge planning consulted for hospice placement. (3) Intertrochanteric fracture of left femur Qualifiers: Encounter type: subsequent encounter Fracture type: closed Fracture alignment: nondisplaced Fracture healing: with routine healing Qualified Code(s): S72.145D - Nondisplaced intertrochanteric fracture of left femur, subsequent encounter for closed fracture with routine healing Is this a current diagnosis for this admission?: Yes Plan: Conservative treatment; analgesics as needed. Transition to Comfort Care Measures. Discharge planning consulted for hospice placement. (4) Dementia Qualifiers: Dementia type: Alzheimer's disease Is this a current diagnosis for this admission?: Yes Plan: This is an end stage process. Spoke with yesterday; desires to transition to Comfort Care Measures. Discharge planning consulted. (5) Diabetic foot ulcers Qualifiers: Diabetic foot ulcer location: midfoot Diabetes mellitus type: type 2 Laterality: right Non-pressure ulcer stage: limited to breakdown of skin Qualified Code(s): E11.621 - Type 2 diabetes mellitus with foot ulcer; L97.411 - Non-pressure chronic ulcer of right heel and midfoot limited to breakdown of skin Is this a current diagnosis for this admission?: Yes Plan: Unchanged. Possible source of MSSA bacteremia. Prafo boots, wound care per nursing protocol. (6) Hypokalemia Is this a current diagnosis for this admission?: Yes Plan: Replete. 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 (7) Rhabdomyolysis Qualifiers: Rhabdomyolysis type: non-traumatic Qualified Code(s): M62.82 - Rhab domyolysis Is this a current diagnosis for this admission?: Yes Plan: Improving, CK 4k-> 5k-> 600 No longer following. (8) Septic shock Is this a current diagnosis for this admission?: Yes Plan: Resolved. Patient with sepsis r/t aspiration pneumonia and MSSA bacteremia, present on admission, evidenced by fever/hypothermia, hypotension, tachypnea, thrombocytosis. a/ckd, elevated lactic acid, elevated transaminase. Initially managed in the ICU. Required pressor support. (9) Diabetes mellitus type 2 in nonobese Is this a current diagnosis for this admission?: Yes Plan: Controlled (10) Acute on chronic renal failure Qualifiers: Acute renal failure type: unspecified Is this a current diagnosis for this admission?: Yes Plan: Secondary to sepsis. Some improvement. Initially consulted nephrology for further assistance; however, following discussions with , we are now transitioning to HANDKERCHIEF CUTTER. Appreciate Dr. Marvin' time. (11) Cardiomyopathy Qualifiers: Cardiomyopathy type: ischemic Qualified Code(s): I25.5 - Ischemic cardiomyopathy Is this a current diagnosis for this admission?: Yes Plan: Seems to be able to come off pressors. (12) Aspiration pneumonia Qualifiers: Laterality: right Lung location: middle lobe of lung Is this a current diagnosis for this admission?: Yes - Time Time Spent with patient: 15-24 minutes Anticipated Discharge Disposition: Hospice Center Anticipated Discharge Timeframe: when bed available
[2019-12-03] MEDS: MORPHINE SULFATE 10 MG/ML INJ IV PRN ×3 (06:09→15:39)
[2019-12-03] MEDS: LORAZEPAM INJ 2 MG/1 ML VIAL IV PRN ×2 (10:11→15:38)
[2019-12-03 12:36] LABS: RHEUMATOID FACTOR LEVELS IGA 8 IU (<7); RHEUMATOID FACTOR LEVELS IGG 9 IU (<7)
--- NOTE | 2019-12-03 15:29 | PDOC TRANSFER SUMMARY ---
General - Admit/Disc Date/PCP Admission Date/Primary Care Provider: 11/23/19 22:43 [facility] Discharge Date: 12/03/19 - Discharge Diagnosis (1) MSSA bacteremia Is this a current diagnosis for this admission?: Yes Summary: Unclear source. Patient does have numerous diabetic foot wounds, shallow venous stasis ulcerations, and abrasions. Possible skin wound has the source. He also presented with evidence of aspiration pneumonia. Blood cultures (x3 sets; 12 bottles) are positive for MSSA. TTE did not evidence vegetations. Initially treated with IV Naficillin. Spoke w/ patient's , Phyllis Rincon; desires transition to Comfort Care Measures. We did discuss that upon stopping IV antibiotics, the patient's progression through end-of-life would like accelerate. She is understanding and asks that we ensure he is comfortable. Discharge planning consulted for hospice placement. (2) Dementia Is this a current diagnosis for this admission?: Yes Summary: .This is an end stage process. Spoke with yesterday; desires to transition to Comfort Care Measures. Discharge planning consulted. (3) Intertrochanteric fracture of left femur Is this a current diagnosis for this admission?: Yes Summary: Conservative treatment; analgesics as needed. Transition to Comfort Care Measures. Discharge planning consulted for hospice placement. (4) Septic shock Is this a current diagnosis for this admission?: Yes Summary: Resolved. Patient with sepsis r/t aspiration pneumonia and MSSA bacteremia, present on admission, evidenced by fever/hypothermia, hypotension, tachypnea, thro mbocytosis. a/ckd, elevated lactic acid, elevated transaminase. Initially managed in the ICU. Required pressor support. (5) Diabetic foot ulcers Is this a current diagnosis for this admission?: Yes Summary: Unchanged. Possible source of MSSA bacteremia. Prafo boots, wound care per nursing protoc - Additional Information Resuscitation Status: Comfort Measures Only Discharge Diet: As Tolerated Discharge Activity: Activity As Tolerated Home Medications: Lisinopril [Prinivil 40 mg Tablet] 40 mg PO DAILY 10/07/17 Atorvastatin Calcium [Lipitor 20 mg Tablet] 80 mg PO QHS 02/21/18 Acetaminophen [Pain Relief] 1,000 mg PO BIDP PRN 02/24/18 Donepezil HCl 10 mg PO DAILY 02/24/18 [place]-3 Fatty Acids/Fish Oil [Fish Oil 1,000 mg Capsule] 1,000 mg PO BID 02/24/18 Cholecalciferol (Vitamin D3) [Vitamin D3 1000 Unit Tablet] 2,000 unit PO DAILY 11/24/19 Memantine HCl [Namenda 10 mg Tablet] 10 mg PO BID 11/24/19 History of Present Illness Admission Date/PCP: 11/23/19 22:43 [facility] History of Present Illness: FEDERICA RINCON is a 79 year old male, with a past medical history of dementia who presents via EMS for unresponsiveness. He is unable to provide a history due to altered mental status. Per EMS, stated that he has had dark stools for several days, he was unresponsive and bradycardic. Whole blood was given by EMS and noted became more responsive. Currently, patient is responsive to painful stimuli and voice. Further history is unable to be obtained. Hospital Course Hospital Course: He was initially admitted in the ICU for pressure support and management of septic shock. HE was transferred out of the ICU 11/30/19. . He received nafcillin for MSSA bacteremia. He also has diabetic foot ulcers and intertrochanteric fracture of the left. His decided to transition to comfort care and hospice. Physical Exam Vital Signs: Temp Pulse Resp BP Pulse Ox 97.1 F 97 16 126/44 H 98 12/03/19 10:40 12/03/19 10:40 12/03/19 10:40 12/03/19 10:40 12/03/19 10:40 Intake & Output 12/02/19 12/03/19 12/04/19 06:59 06:59 06:59 Intake Total 0 0 Output Total 450 305 Balance -450 -305 Weight 85 kg 84.6 kg General appearance: PRESENT: no acute distress Head exam: PRESENT: normocephalic Eye exam: PRESENT: PERRLA Mouth exam: PRESENT: moist Neck exam: ABSENT: JVD Respiratory exam: PRESENT: rales, symmetrical, unlabored Cardiovascular exam: PRESENT: RRR, +S1, +S2 Pulses: PRESENT: normal radial pulses Musculoskeletal exam: PRESENT: other - lethargic Neurological exam: PRESENT: aphasic Results Laboratory Results: 11/30/19 05:09 11/30/19 05:09 11/30/19 08:40 Blood Blood Culture (PCR) - Final Staphylococcus Aureus 11/30/19 08:40 Blood Blood Culture - Final Staphylococcus Aureus 11/30/19 08:30 Blood Blood Culture (PCR) - Final Staphylococcus Aureus 11/30/19 08:30 Blood Blood Culture - Final Staphylococcus Aureus 11/23/19 11/23/19 11/24/19 17:41 17:41 00:28 Creatine Kinase 4086 H 5523 H CK-MB (CK-2) Troponin I 0.170 NT-Pro-B Natriuret Pep 11/24/19 11/24/19 11/24/19 00:28 03:20 03:20 Creatine Kinase CK-MB (CK-2) Troponin I 0.231 0.240 NT-Pro-B Natriuret Pep 1070 H 11/24/19 11/24/19 11/24/19 06:32 06:32 11:00 Creatine Kinase 3765 H CK-MB (CK-2) 23.10 H Troponin I 0.375 NT-Pro-B Natriuret Pep 11/24/19 11/24/19 11/24/19 14:50 18:45 22:13 Creatine Kinase CK-MB (CK-2) Troponin I 0.569 0.699 0.750 NT-Pro-B Natriuret Pep 6100 H 11/25/19 11/26/19 11/29/19 04:15 11:10 05:48 Creatine Kinase 966 H CK-MB (CK-2) Troponin I 0.743 0.381 NT-Pro-B Natriuret Pep 11/30/19 05:09 Creatine Kinase 600 H CK-MB (CK-2) Troponin I NT-Pro-B Natriuret Pep Impressions: Chest CT 11/23/19 20:09 IMPRESSION: Bibasilar airspace disease and adjacent effusions. Pneumonia could have this appearance. Given bibasilar distribution, aspiration is a consideration. No high-grade bowel obstruction. Moderate hard stool within the colon. Acute intertrochanteric fracture left femur. Study is degraded by artifact from the patient's arms and motion. Additionally given stranding within all the imaged fat, tissue planes are difficult to discern.. Head CT 11/23/19 20:09 IMPRESSION: Imaging is degraded by patient motion, with resultant artifact. The best possible images were obtained. No acute intracranial process. Age-related involutional changes are identified. Presumed old small vessel ischemic changes are seen predominantly in a periventricular distribution.. The cause of the patient's metal status change is not identified on this examination. Abdomen/Pelvis CT 11/23/19 20:10 IMPRESSION: Bibasilar airspace disease and adjacent effusions. Pneumonia could have this appearance. Given bibasilar distribution, aspiration is a consideration. No high-grade bowel obstruction. Moderate hard stool within the colon. Acute intertrochanteric fracture left femur. Study is degraded by artifact from the patient's arms and motion. Additionally given stranding within all the imaged fat, tissue planes are difficult to discern.. Cervical Spine CT 11/23/19 22:17 IMPRESSION: No acute fracture or subluxation of the cervical spine. Femur X-Ray 11/23/19 22:43 IMPRESSION: Intertrochanteric fracture. copyright 2010 [employer]- All Rights Reserved Pelvis X-Ray 11/23/19 22:43 IMPRESSION: Intertrochanteric fracture of the left hip. copyright 2011 [employer]- All Rights Reserved Forearm X-Ray 11/26/19 00:00 IMPRESSION: No fracture. Humerus X-Ray 11/26/19 00:00 IMPRESSION: No fracture. Venous Doppler Study 11/27/19 00:00 IMPRESSION: 1. NO EVIDENCE DVT OR SVT RIGHT ARM. Clavicle X-Ray 11/27/19 07:51 IMPRESSION: 1. No evidence of acute bony abnormality. 2. 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 Chest X-Ray 11/28/19 00:00 IMPRESSION: Tip of the enteric tube coiled in the esophagus. Adjustment recommended. Worsening airspace opacity right lung base copyright 2010 [employer]- All Rights Reserved KUB X-Ray 11/30/19 07:37 IMPRESSION: The tip and side hole of the enteric tube project within the gastric lumen. Transfer Plan - Disposition Transfer Plan: transfer to hospice - Time Spent with Patient Time spent with patient: Less than 30 Minutes Qualifiers PATIENT BEING DISCHARGED WITH ANY OF THE FOLLOWING DIAGNOSIS: No VTE patient discharged on overlapping Therapy?: No Plan Discharge Plan: transition to hospice Time Spent: Less than 30 Minutes
[2019-12-03 15:44] VITALS: BP 134/88
== END 2019-12-03 16:14 | disposition short-term general hospital (02) | DRG 871 ==
LOC: ER 17:33 → EH 22:43 → ICU 11-24 02:01 → 3W 11-29 20:52
PROVIDERS: ADMIT Internal Medicine Critical Care Medicine; ATTEND Internal Medicine
PROC: B24BZZ4 Ultrasonography of Heart with Aorta, Transesophageal (ICD-10-PCS; principal; 2019-11-23)
PROC: 5A09457 Assistance with Respiratory Ventilation, 24-96 Consecutive Hours, Continuous Positive Airway Pressure (ICD-10-PCS; 2019-11-23)
PROC: 30233R1 Transfusion of Nonautologous Platelets into Peripheral Vein, Percutaneous Approach (ICD-10-PCS; 2019-11-27)
DX: A41.01 Sepsis due to Methicillin susceptible Staphylococcus aureus (principal); R65.21 Severe sepsis with septic shock; J69.0 Pneumonitis due to inhalation of food and vomit; M62.82 Rhabdomyolysis; N17.9 Acute kidney failure, unspecified; L97.411 Non-pressure chronic ulcer of right heel and midfoot limited to breakdown of skin; D61.818 Other pancytopenia; S72.145D Nondisplaced intertrochanteric fracture of left femur, subsequent encounter for closed fracture with routine healing; E11.621 Type 2 diabetes mellitus with foot ulcer; I10 Essential (primary) hypertension; E78.5 Hyperlipidemia, unspecified; I27.20 Pulmonary hypertension, unspecified; R29.6 Repeated falls; N40.0 Benign prostatic hyperplasia without lower urinary tract symptoms; F32.9 Major depressive disorder, single episode, unspecified; F43.10 Post-traumatic stress disorder, unspecified; I25.5 Ischemic cardiomyopathy; E87.6 Hypokalemia; R94.5 Abnormal results of liver function studies; I08.1 Rheumatic disorders of both mitral and tricuspid valves; D69.6 Thrombocytopenia, unspecified; G30.9 Alzheimer's disease, unspecified; F02.80 Dementia in other diseases classified elsewhere, unspecified severity, without behavioral disturbance, psychotic disturbance, mood disturbance, and anxiety; K21.9 Gastro-esophageal reflux disease without esophagitis; Z96.611 Presence of right artificial shoulder joint; Z96.651 Presence of right artificial knee joint; Z74.01 Bed confinement status; Z79.899 Other long term (current) drug therapy; Z79.84 Long term (current) use of oral hypoglycemic drugs; Z79.82 Long term (current) use of aspirin; Z78.1 Physical restraint status; Z03.818 Encounter for observation for suspected exposure to other biological agents ruled out
CPT/HCPCS: 36415; 36430; 36600; 70450; 71045; 71250; 72125; 72170; 74018; 74176; 80048; 80053; 80074; 80076; 81001; 82270; 82306; 82330; 82533; 82550; 82553; 82607; 82652; 82746; 82803; 82962; 83605; 83690; 83735; 83874; 83880; 84100; 84134; 84484; 85025; 85045; 85379; 85384; 85610; 85730; 86038; 86431; 86664; 86665; 86701; 86850; 86870; 86900; 86901; 86902; 87040; 87070; 87077; 87086; 87088; 87150; 87186; 87205; 87635; 88184; 88185; 93005; 93010; 93306; 93971; 94640; 94660; 96361; 96365; 99291; 99292; J0610; C9113; C9803; J0692; J1265; J1450; J1815; J1940; J2060; J2270; J2543; J3370; J3480; J3490; J7030; J7050; J7060; J7120; J7613; P9035; S0032